=== PATIENT | female | born 1975 | race Caucasian/White ===

== ENCOUNTER 2020-02-04 11:37 | Outpatient (CLI) | payer BC, SELFPAY ==
[2020-02-04 13:45] LABS: LDL Cholesterol Direct 200 mg/dL
[2020-02-04 13:57] LABS: Anion Gap 7 mmol/L (8-16); Blood Urea Nitrogen 9 mg/dL (7-17); Calcium 9.1 mg/dL (8.4-10.2); Carbon Dioxide 29 mmol/L (22-30); Chloride 103 mmol/L (98-107); Cholesterol 275 mg/dL (0-200); Estimated Glomerular Filt Rate > 60; Glucose 131 mg/dL (65-105); HDL Direct 29 mg/dL; Potassium 3.9 mmol/L (3.4-5.0); Sodium 139 mmol/L (137-145); Triglycerides 305 mg/dL (<150)
[2020-02-04 14:08] LABS: Vitamin D 25 Hydroxy 23.7 ng/mL
== END 2020-02-04 11:38 | disposition home or self-care (01) ==
PROVIDERS: PCP Internal Medicine; Visit Provider Internal Medicine
DX: E78.5 Hyperlipidemia, unspecified (principal); E55.9 Vitamin D deficiency, unspecified; E03.9 Hypothyroidism, unspecified; I10 Essential (primary) hypertension
CPT/HCPCS: 36415; 80048; 80061; 82306; 84443

== ENCOUNTER 2020-02-06 16:45 | Outpatient (CLI) | payer BC, SELFPAY | END 2020-02-06 16:46 | disposition home or self-care (01) | LOC: ANHLAB 16:47 | PROVIDERS: PCP Internal Medicine; Visit Provider Internal Medicine | DX: R73.9 Hyperglycemia, unspecified (principal) | CPT/HCPCS: 36415; 83036 ==

== ENCOUNTER 2020-04-20 14:14 | Outpatient (CLI) | payer BC, SELFPAY ==
--- NOTE | 2020-04-21 13:38 | WPDPFTINT ---
PFT Interpretation This is a pulmonary function test with pre and post-bronchodilator spirometry, plethysmography and diffusing capacity. The test was performed and results interpreted in accordance with the 2019 and 2005 ATS/ERS Task Force guidelines respectively using the Zia/María reference equations. Findings: Spirometry: The contour of the inspiratory and expiratory flow tracing are normal. The pre-bronchodilator FVC is 2.84 L, 81% predicted. The pre bronchodilator FEV1 is 2.38 L, 89% predicted. The FEV1: FVC ratio was 84%. The post bronchodilator FVC is 2.93 L, representing a 3% increase. The post bronchodilator FEV1 is 2.52 L, representing a 6% increase. Plethysmography: The total lung capacity is 4.32 L, 83% predicted. The functional residual capacity is 2.09 L, 84% predicted. The residual volume is 1.19 L, 66% predicted. Diffusing capacity: The absolute diffusing capacity is 15.0, 58% predicted. The diffusing capacity corrected for alveolar volume is 3.95, 95% predicted. Impression: The spirometry is normal without evidence of an obstructive abnormality. There is no significant improvement after inhaling a single dose of albuterol. There is an isolated decreased in residual volume. This is an abnormal but nonspecific lung volume lung volume pattern. The absolute diffusing capacity is moderately decreased but normalized when corrected for lung volume. There are no prior studies for comparison
== END 2020-04-20 14:15 | disposition home or self-care (01) ==
LOC: ANHPFT 14:15
PROVIDERS: PCP Internal Medicine; Visit Provider Internal Medicine
DX: R06.02 Shortness of breath (principal); Z72.0 Tobacco use
CPT/HCPCS: 94060; 94726; 94729

== ENCOUNTER 2020-08-03 10:57 | Outpatient (CLI) | payer OTHER, SELFPAY ==
[2020-08-03 11:29] LABS: Alanine Aminotransferase 23 U/L (4-35); Albumin Level 4.2 g/dL (3.5-5.1); Alkaline Phosphatase 76 U/L (38-126); Anion Gap 3 mmol/L (8-16); Aspartate Amino Transferase 30 U/L (14-36); Bilirubin,Total 0.4 mg/dL (0.2-1.3); Blood Urea Nitrogen 9 mg/dL (7-17); Calcium 9.2 mg/dL (8.4-10.2); Carbon Dioxide 32 mmol/L (22-30); Chloride 103 mmol/L (98-107); Cholesterol 268 mg/dL (0-200); Estimated Glomerular Filt Rate 59; Glucose 124 mg/dL (65-105); HDL Direct 35 mg/dL; Potassium 3.5 mmol/L (3.4-5.0); Sodium 138 mmol/L (137-145); Triglycerides 194 mg/dL (<150)
[2020-08-03 11:37] LABS: Hemoglobin A1C 5.8 % (<5.7)
[2020-08-03 11:40] LABS: LDL Cholesterol Direct 191 mg/dL
[2020-08-03 12:05] LABS: Vitamin D 25 Hydroxy 41.7 ng/mL
== END 2020-08-03 10:58 | disposition home or self-care (01) ==
PROVIDERS: PCP Internal Medicine; Visit Provider Internal Medicine
DX: R73.03 Prediabetes (principal); E55.9 Vitamin D deficiency, unspecified; I10 Essential (primary) hypertension; Z79.899 Other long term (current) drug therapy; E03.9 Hypothyroidism, unspecified; E78.5 Hyperlipidemia, unspecified; R41.3 Other amnesia
CPT/HCPCS: 36415; 80053; 80061; 82306; 82607; 83036; 84443

== ENCOUNTER 2020-10-10 14:01 | Outpatient (CLI) | payer BC, SELFPAY | END 2020-10-10 14:02 | disposition home or self-care (01) | PROVIDERS: PCP Internal Medicine; Visit Provider Internal Medicine | DX: R41.3 Other amnesia (principal) | CPT/HCPCS: 36415; 82607 ==

== ENCOUNTER → 2021-01-01 04:11 | Outpatient (CLI) | payer BC, SELFPAY ==
[2021-01-01 18:18] LABS: SARS-CoV-2 RNA PCR Negative
== END ==
PROVIDERS: PCP Internal Medicine; Visit Provider Internal Medicine
DX: R68.89 Other general symptoms and signs (principal); Z20.822 Contact with and (suspected) exposure to COVID-19
CPT/HCPCS: C9803; U0003; U0005

== ENCOUNTER 2021-01-22 09:19 | Outpatient (CLI) | payer BC, SELFPAY ==
--- NOTE | 2021-01-22 09:37 | EST_ITS ---
Patient Info Name: Christina Simmons Age: 45 years : 1975 Gender: Female Ht: 65 in Wt: 206 lbs BSA: 2.11 m2 HR: 70 bpm BP: 147 / 84 mmHg Heart Rhythm: Sinus Rhythm Exam Date: 01/22/2021 9:49 AM Exam Location: [facility] Stress Patient Status: Outpatient Admit Date: 01/22/2021 Staff Ordering Physician: Mala Slater Attending Provider: Mala Slater Exercise Technologist: Genia Crabtree CT Exercise Physician: Aakash Fry DO Exam Type: CA stress test treadmill Study Info Indications R07.9 - Chest pain, unspecified An exercise stress test was performed. Summary 1. 1. Negative Rangel exercise stress test for ischemic ST changes by ECG criteria. 2. 2. Reduced functional capacity, achieving 6 METs of workload. 3. 3. Baseline hypertension with hypertensive response to exercise. 4. 4. Appropriate HR response to exercise. 5. 5. Appropriate HR recovery at 1 minute post exercise. 6. 6. No imaging with stress testing. 7. 7. Patient informed of the above results. Protocol: Rangel Stress ECG Details Stage: REST Duration (min): 1 min : 35 sec Speed (mph): 0.0 Grade (%): 0 HR (bpm): 68 SBP (mmHg): 147 DBP (mmHg): 84 METS: --- Stage: REST Duration (min): 6 min : 12 sec Speed (mph): 0.0 Grade (%): 0 HR (bpm): 81 SBP (mmHg): 147 DBP (mmHg): 84 METS: --- Stage: STAGE 1 Duration (min): 1 min : 0 sec Speed (mph): 1.7 Grade (%): 10 HR (bpm): 105 SBP (mmHg): 147 DBP (mmHg): 84 METS: --- Stage: STAGE 1 Duration (min): 2 min : 0 sec Speed (mph): 1.7 Grade (%): 10 HR (bpm): 127 SBP (mmHg): 147 DBP (mmHg): 84 METS: --- Stage: STAGE 1 Duration (min): 3 min : 0 sec Speed (mph): 1.7 Grade (%): 10 HR (bpm): 139 SBP (mmHg): 189 DBP (mmHg): 82 METS: --- Stage: STAGE 2 Duration (min): 1 min : 0 sec Speed (mph): 2.5 Grade (%): 12 HR (bpm): 155 SBP (mmHg): 189 DBP (mmHg): 82 METS: --- Stage: STAGE 2 Duration (min): 1 min : 0 sec Speed (mph): 2.5 Grade (%): 12 HR (bpm): 155 SBP (mmHg): 189 DBP (mmHg): 82 METS: --- Stage: RECOVERY Duration (min): 0 min : 59 sec Speed (mph): 0.0 Grade (%): 0 HR (bpm): 143 SBP (mmHg): 216 DBP (mmHg): 79 METS: --- Stage: RECOVERY Duration (min): 1 min : 59 sec Speed (mph): 0.0 Grade (%): 0 HR (bpm): 115 SBP (mmHg): 216 DBP (mmHg): 79 METS: --- Stage: RECOVERY Duration (min): 2 min : 59 sec Speed (mph): 0.0 Grade (%): 0 HR (bpm): 94 SBP (mmHg): 191 DBP (mmHg): 69 METS: --- Stage: RECOVERY Duration (min): 3 min : 16 sec Speed (mph): 0.0 Grade (%): 0 HR (bpm): 91 SBP (mmHg): 191 DBP (mmHg): 69 METS: --- Rest HR: 81 bpm Peak HR: 157 bpm Rest Sys BP: 147 mmHg Peak Sys BP: 216 mmHg Max Pred HR: 173 bpm % Max Pred HR: 91 % Target HR: 147
== END 2021-01-22 09:20 | disposition home or self-care (01) ==
PROVIDERS: PCP Internal Medicine; Visit Provider Nurse Practitioner
DX: R07.9 Chest pain, unspecified (principal)
CPT/HCPCS: 93017

== ENCOUNTER 2021-02-01 03:09 | Day surgery (SDC) | payer BC, SELFPAY ==
[2021-01-10 13:03] VITALS: BMI 34.1
[2021-02-01 13:24] VITALS: BP 127/83; PULSE 77; RESP 16; TEMP 35.6; O2SAT 99; BMI 34.7
--- NOTE | 2021-02-01 13:41 | WPDANESEPPF ---
Anes - Initial Pre Proc Eval Procedure: Operation Date: 02/01/21 14:00 Proposed Procedures p Esophagogastroduodenoscopy - Bijan Martínez MD Date/Time: 02/01/21 13:41 Surgeon: Bijan Martínez MD Pre Op Diagnosis: GERD Patient Data Age: 45 Gender: F Height: 1.65 m Weight: 94.5 kg Last Vital Signs Temp 96.0 F L 02/01/21 13:24 Pulse 77 02/01/21 13:24 Resp 16 02/01/21 13:24 BP 127/83 02/01/21 13:24 Pulse Ox 99 02/01/21 13:24 Allergies Allergy/AdvReac Type Severity Reaction Status Date / Time No Known Allergies Allergy Verified 02/01/21 13:24 Home Medications Medication Instructions Recorded Confirmed Type alprazolam 0.25 mg tablet 0.25 mg PO TID PRN 03/09/19 02/01/21 History cholecalciferol (vitamin D3) 50 50 mcg PO DAILY #30 cap 03/13/20 02/01/21 Rx mcg (2,000 unit) capsule famotidine 40 mg tablet See Rx Instructions .ROUTE 06/28/20 02/01/21 Rx .COMPLEX #90 tablet atorvastatin 20 mg tablet 20 mg PO .every other day #45 08/07/20 02/01/21 Rx tablet folic acid 1 mg tablet 1 mg PO DAILY #30 tablet 10/05/20 02/01/21 Rx lamotrigine 150 mg tablet 150 mg PO DAILY 10/18/20 02/01/21 History levothyroxine 88 mcg tablet 88 mcg PO DAILY #90 tablet 10/19/20 02/01/21 Rx ezetimibe 10 mg tablet See Rx Instructions .ROUTE 10/22/20 02/01/21 Rx .COMPLEX #90 tablet lisinopril 10 1 tablet PO DAILY #90 tablet 11/27/20 02/01/21 Rx mg-hydrochlorothiazide 12.5 mg tablet omeprazole 40 mg capsule,delayed 40 mg PO BID #90 cap 01/03/21 02/01/21 Rx release prochlorperazine maleate 10 mg 10 mg PO Q8H PRN #30 tablet 01/04/21 02/01/21 Rx tablet citalopram 20 mg tablet 20 mg PO DAILY 01/16/21 02/01/21 History melatonin 10 mg capsule 10 mg PO QHS 01/16/21 02/01/21 History cetirizine 10 mg PO DAILY 02/01/21 02/01/21 History Patient hx anesthesia problems: none Family hx anesthesia problems: none Results Review: All pre-operative results and documents have been reviewed as part of the pre-operative evaluation. [facility] [place] Family History Family History Father Hypertension Grandparent Family history of malignant neoplasm Mother Family history of diabetes mellitus in first degree relative Social History Social History Smoking packs per day: 1 Smoking cigarettes per day: 20.0 Years smoked: 30 Smoking pack-years: 30.00 Smoking status: Former smoker Tobacco type: cigarettes Second hand tobacco smoke exposure: Yes Smoking end date: 08/20/20 Alcohol intake: never Alcohol use details: 2 per month Substance use: never Substance use type: marijuana Other substance usage details: medical marijuana Living arrangements: with family Spiritual care concerns: No Anes - Eval Final PreProcedure Day of Procedure 02/01/21 13:41 Patient weight: obese Heart: regular rate and rhythm Lungs: clear to auscultation Airway: Mallampati scale class II Neurological: alert and oriented Last oral intake: >/= 8 hours ASA classification: III Emergent: no Anesthetic plan: proceed Anesthesia type and monitoring: general GIVS and standard monitoring Results Review: All pre-operative results and documents have been reviewed as part of the pre-operative evaluation. Informed Consent: The patient's anesthetic plan and its attendant risks and benefits were discussed with the patient/family/POA. Questions were solicited and answers provided to the satisfaction of the patient/family/POA.
[2021-02-01] MEDS: LACTATED RINGERS 1,000 ML 150 ML IV CONT (13:42)
--- NOTE | 2021-02-01 14:01 | PM.HPGS ---
History of Present Illness History of Present Illness Consent: Risks, benefits, and alternatives have been discussed and questions answered. Patient agrees to proceed with procedure. Chief complaint: GERD Narrative: Christina Simmons is a 45 year old female with nausea, vomiting and belching for 2 months but better after omeprazole was increased. Review of Systems Constitutional: Constitutional: Denies headache(s) and Denies weakness Eyes: Eyes: Denies blurry vision ENT: Reports Normal hearing present, Denies headache(s) and Denies neck pain Cardiovascular: Cardiovascular: Denies chest pain and Denies dyspnea Respiratory: Respiratory: Denies dyspnea Gastrointestinal: Gastrointestinal: Reports no additional gastrointestinal complaints Genitourinary: Genitourinary: Denies dysuria Musculoskeletal: Musculoskeletal: Denies neck pain Integumentary/Breasts: Skin/Breast: Denies dry skin Neurologic: Reports Normal hearing present, Denies headache(s) and Denies weakness Psychiatric: Psychiatric: Denies anxiety Endocrine: Endocrine: Denies change in body appearance Hematologic/Lymphatic: Hematologic/Lymphatic: Denies easy bleeding Allergic/Immunologic: Allergic/Immunologic: Denies urticaria PMFSH Past Medical History Medical History (Updated 02/01/21 @ 14:02 by Bijan Martínez MD) Nausea & vomiting Family History Family History Father Hypertension Grandparent Family history of malignant neoplasm Mother Family history of diabetes mellitus in first degree relative Social History Social History Smoking packs per day: 1 Smoking cigarettes per day: 20.0 Years smoked: 30 Smoking pack-years: 30.00 Smoking status: Former smoker Tobacco type: cigarettes Second hand tobacco smoke exposure: Yes Smoking end date: 08/20/20 Alcohol intake: never Alcohol use details: 2 per month Substance use: never Substance use type: marijuana Other substance usage details: medical marijuana Living arrangements: with family Spiritual care concerns: No Meds Home Medications and Allergies Home Medications Medication Instructions Recorded Confirmed Type alprazolam 0.25 mg tablet 0.25 mg PO TID PRN 03/09/19 02/01/21 History cholecalciferol (vitamin D3) 50 50 mcg PO DAILY #30 cap 03/13/20 02/01/21 Rx mcg (2,000 unit) capsule famotidine 40 mg tablet See Rx Instructions .ROUTE 06/28/20 02/01/21 Rx .COMPLEX #90 tablet atorvastatin 20 mg tablet 20 mg PO .every other day #45 08/07/20 02/01/21 Rx tablet folic acid 1 mg tablet 1 mg PO DAILY #30 tablet 10/05/20 02/01/21 Rx lamotrigine 150 mg tablet 150 mg PO DAILY 10/18/20 02/01/21 History levothyroxine 88 mcg tablet 88 mcg PO DAILY #90 tablet 10/19/20 02/01/21 Rx ezetimibe 10 mg tablet See Rx Instructions .ROUTE 10/22/20 02/01/21 Rx .COMPLEX #90 tablet lisinopril 10 1 tablet PO DAILY #90 tablet 11/27/20 02/01/21 Rx mg-hydrochlorothiazide 12.5 mg tablet omeprazole 40 mg capsule,delayed 40 mg PO BID #90 cap 01/03/21 02/01/21 Rx release prochlorperazine maleate 10 mg 10 mg PO Q8H PRN #30 tablet 01/04/21 02/01/21 Rx tablet citalopram 20 mg tablet 20 mg PO DAILY 01/16/21 02/01/21 History melatonin 10 mg capsule 10 mg PO QHS 01/16/21 02/01/21 History cetirizine 10 mg PO DAILY 02/01/21 02/01/21 History Allergies Allergy/AdvReac Type Severity Reaction Status Date / Time No Known Allergies Allergy Verified 02/01/21 13:24 Vital Signs Vital Signs - 24 hr 02/01/21 13:24 Temperature 96.0 F L Pulse Rate 77 Respiratory Rate 16 Blood Pressure 127/83 Pulse Oximetry 99 Exam Const: General: comfortable and no acute distress HENMT: General nose exam: Normal nares present Eyes: General: appearance normal, both eyes and all related structures Neck: Neck: no JVD Resp: Auscultation: clear to
[2021-02-01] MEDS: BENZOCAINE (*SP) 60 ML SPRAY CAN (HURRICAINE) 1 SPRAY MUCOUS MEM (14:12)
[2021-02-01 14:28] VITALS: BP 104/69; PULSE 92; RESP 16; O2SAT 98
[2021-02-01 14:38] VITALS: BP 95/56; PULSE 88; RESP 16; O2SAT 98
[2021-02-01 14:46] VITALS: BP 112/66; PULSE 79; RESP 16; O2SAT 100
== END 2021-02-01 14:55 | disposition home or self-care (01) ==
PROVIDERS: PCP Internal Medicine; Visit Provider Internal Medicine Gastroenterology
PROC: 0DJ08ZZ Inspection of Upper Intestinal Tract, Via Natural or Artificial Opening Endoscopic (ICD-10-PCS; CPT 43235; principal; 2021-02-01 14:00)
DX: R11.2 Nausea with vomiting, unspecified (principal); K21.00 Gastro-esophageal reflux disease with esophagitis, without bleeding; R14.2 Eructation; Z87.891 Personal history of nicotine dependence; F12.90 Cannabis use, unspecified, uncomplicated; E03.9 Hypothyroidism, unspecified; E66.9 Obesity, unspecified; Z68.34 Body mass index [BMI] 34.0-34.9, adult; K29.50 Unspecified chronic gastritis without bleeding
CPT/HCPCS: 43239; 88305; 88313; J2704; J7120

== ENCOUNTER 2021-02-19 12:32 | Outpatient (CLI) | payer BC, SELFPAY | END 2021-02-19 12:33 | disposition home or self-care (01) | LOC: ANHLAB 12:33 | PROVIDERS: PCP Internal Medicine; Visit Provider Internal Medicine | DX: E03.9 Hypothyroidism, unspecified (principal) | CPT/HCPCS: 36415; 84439; 84443 ==

== ENCOUNTER 2021-07-15 07:30 | Outpatient (CLI) | payer BC, SELFPAY ==
--- NOTE | 2021-07-16 16:32 | WPDHOMESLEEP ---
Sleep Study - Home Unattended Date of Study: 07/15/21 Ordering Provider: Jorge L Kaminski DO Interpreting Provider: Shannon Jones DO Home Sleep Study Type: Apnea Link Air Height: 1.65 m Weight: 104.326 kg Body Mass Index: 38.2 Neck Circumference (inches): 16 [place]: 16 Reason for Sleep Study Loud snoring, unrefreshing sleep, multiple nighttime awawkenings Sleep History The patient is a 46-year-old female with hypertension, depression, hypothyroidism and GERD that had a home sleep test ordered by her primary care physician for evaluation of sleep apnea. The patient occasionally awakens from sleep short of breath. She rarely awakens at night with heartburn, belching or cough. She constantly snores loud enough that others complain. She frequently has trouble sleeping when she has a cold. She rarely wakes up gasping for air throughout the night. She occasionally has breathing problems at night observed by herself or others. She frequently sweats excessively at night. She denies heart palpitations or irregular heartbeats during the night. He occasionally falls asleep during the day but never while driving. She denies sleep paralysis, cataplexy and hypnagogic / hypnopompic hallucinations. She frequently has trouble at work due to sleepiness. She denies feeling afraid of asleep. She rarely has nightmares. She rarely remembers her dreams. She denies having thoughts racing through her mind. He constantly feels sad or depressed. She constantly has anxiety. She frequently has muscular tension she occasionally notices parts of her body jerk she frequently kicks during the night. She occasionally has crawling and aching feelings in her legs but denies leg pain during the night. She denies grinding her teeth during sleep awakening with morning jaw pain. She is occasionally bothered by pain during the day but never awakened by pain during night. She frequently wakes up feeling stiff in the morning with sore achy muscles. She frequently wakes up with pain in the neck, spine or other joints. The patient did not list her bedtime on weekdays and weekends. She states it does not take her want to fall asleep. She will wake up 10 times throughout the night. When she awakens, she will use the restroom and get a drink. It takes her 10-15 minutes to fall back asleep. She wakes up between noon and 2:00 p.m. on both weekdays and weekends. She will stay in bed for 15-30 minutes after waking up in the morning. She currently lives her . She does not consume any caffeinated beverages within 2 hours of bedtime. She does not engage in physical exercise before bedtime. She denies reading and watching television before falling asleep. She will take naps in the afternoon or the evening but they are refreshing. She drinks 5-6 caffeinated beverages per day. She denies current alcohol use. She quit smoking cigarettes 1 year ago. She does currently use medicinal cannabis. [facility] Past Medical History Medical History Benign essential hypertension Depression Gastroesophageal reflux disease Hypothyroidism Nausea & vomiting Prediabetes Family History Family History Father Hypertension Grandparent Family history of malignant neoplasm Mother Family history of diabetes mellitus in first degree relative Social History Social History Smoking packs per day: 1 Smoking cigarettes per day: 20.0 Years smoked: 30 Smoking pack-years: 30.00 Smoking status: Former smoker Tobacco type: cigarettes Second hand tobacco smoke exposure: Yes Smoking end date: 08/20/20 Alcohol intake: never Alcohol use details: 2 per month Substance use: never Substance use type: marijuana Other substance usage details: medical marijuana Spiritual care concerns: No Me
[2021-07-16 16:55] VITALS: BMI 38.2
== END 2021-07-16 10:35 | disposition home or self-care (01) ==
LOC: ANHCSM 07:32
PROVIDERS: PCP Internal Medicine; Visit Provider Internal Medicine
DX: G47.33 Obstructive sleep apnea (adult) (pediatric) (principal)
CPT/HCPCS: 95806

== ENCOUNTER 2021-08-06 14:19 | Outpatient (CLI) | payer BC, SELFPAY ==
--- NOTE | 2021-08-18 20:42 | WPDSLEEPSTUD ---
Sleep Study Date of Study: 08/06/21 Ordering Provider: Jorge L Kaminski DO Interpreting Physician: Maritza Denis MD Sleep Study Type: CPAP Titration Height: 1.65 m Weight: 99.79 kg Body Mass Index: 36.6 Neck Circumference (inches): 14 [place]: 10 Reason for Sleep Study * 07/15/2021 Home Sleep Apnea Test with an apnea hypopnea index of 27.8 which is consistent with moderate sleep apnea. The patient had an elevated central apnea index of 7.2 (normal< 5). She presents now for a CPAP titration. * 08/13/2021 echo - EF 60-65%. Sleep History Christina Simmons is a 46-year-old female with hypertension, depression, hypothyroidism and GERD. On July 15, 2021 her home sleep test showed moderate obstructive sleep apnea with an elevated central apnea index. She occasionally awakens from sleep short of breath. She rarely awakens at night with heartburn, belching or cough. She constantly snores loudly enough that others complain. She frequently has trouble sleeping when she has a cold. She rarely wakes up gasping for air throughout the night. She occasionally has breathing problems at night observed by herself or others. She frequently sweats excessively at night. She denies heart palpitations or irregular heartbeats during the night. She occasionally falls asleep during the day but never while driving. She denies sleep paralysis, cataplexy and hypnagogic / hypnopompic hallucinations. She frequently has trouble at work due to sleepiness. She denies feeling afraid of going to sleep. She rarely has nightmares. She rarely remembers her dreams. She denies having thoughts racing through her mind. He constantly feels sad or depressed. She constantly has anxiety. She frequently has muscular tension she occasionally notices parts of her body jerk she frequently kicks during the night. She occasionally has crawling and aching feelings in her legs but denies leg pain during the night. She denies grinding her teeth during sleep or waking with morning jaw pain. She is occasionally bothered by pain during the day but never awakened by pain during night. She frequently wakes up feeling stiff in the morning with sore achy muscles. She frequently wakes up with pain in the neck, spine or other joints. The patient did not list her bedtime on weekdays and weekends. She states it does not take her long to fall asleep. She will wake up 10 times throughout the night. When she awakens, she will use the bathroom and get a drink. It takes her 10-15 minutes to fall back asleep. She wakes up between noon and 2:00 p.m. on both weekdays and weekends. She will stay in bed for 15-30 minutes after waking up in the morning. She currently lives her . She does not consume any caffeinated beverages within 2 hours of bedtime. She takes naps in the afternoon or the evening. A short nap may be refreshing. Habits: Former tobacco smoker, quit a year ago. Caffeine: 5-6 caffeinated beverages per day. No current alcohol use. She does currently use medicinal cannabis. [facility] Past Medical History Medical History (Updated 08/18/21 @ 21:11 by Maritza Denis MD) Benign essential hypertension Depression Gastroesophageal reflux disease Hypothyroidism Mixed hyperlipidemia Nausea & vomiting SHANE (obstructive sleep apnea) Prediabetes Family History Family History Father Hypertension Grandparent Family history of malignant neoplasm Mother Family history of diabetes mellitus in first degree relative Social History Social History Smoking packs per day: 1 Smoking cigarettes per day: 20.0 Years smoked: 30 Smoking pack-years: 30.00 Smoking status: Former smoker Tobacco type: cigarettes Second hand tobacco smoke exposure: Yes Smoking end date: 08/20/20 Alcohol intake: never Alcohol use details: 2 per month Substance use: never Substance use typ
[2021-08-18 21:28] VITALS: BMI 36.6
== END 2021-08-07 06:32 | disposition home or self-care (01) ==
LOC: ANHCSM 14:19
PROVIDERS: PCP Internal Medicine; Visit Provider Internal Medicine
DX: G47.33 Obstructive sleep apnea (adult) (pediatric) (principal); G47.31 Primary central sleep apnea
CPT/HCPCS: 95810; 95811

== ENCOUNTER 2021-08-13 08:27 | Outpatient (CLI) | payer BC, SELFPAY ==
--- NOTE | 2021-08-13 08:39 | ECHO_ITS ---
Patient Info Name: Christina Simmons Age: 46 years : 1975 Gender: Female Ht: 65 in Wt: 230 lbs BSA: 2.24 m2 HR: 69 bpm BP: 120 / 87 mmHg Technical Quality: Fair Exam Date: 08/13/2021 9:08 AM Exam Location: [facility] Pulmonary Patient Status: Outpatient Admit Date: 08/13/2021 Staff Ordering Physician: Jorge L Kaminski DO Agricultural Extension Educator: Elida Nelson RDCS Attending Provider: Jorge L Kaminski DO Referring Physician: Gordy MUIR; Exam Type: CA echo doppler color flow Study Info Indications G47.31 - PRIMARY CENTRAL SLEEP APNEA Complete two-dimensional, color flow and Doppler transthoracic echocardiogram is performed. Summary 1. Complete two-dimensional, color flow and Doppler transthoracic echocardiogram is performed. 2. Left ventricular chamber dimension is normal. 3. Left ventricular systolic function is normal, estimated at 60-65%. 4. There is mildly increased left ventricular wall thickness. 5. The left ventricular diastolic function is grade II diastolic dysfunction. 6. E/e' 9 is minimally elevated. 7. Global longitudinal strain is normal at -19.7%. 8. No pulmonary hypertension, estimated pulmonary arterial systolic pressure is 21 mmHg. Left Ventricle E/e' 9 is minimally elevated. Global longitudinal strain is normal at -19.7%. Left ventricular chamber dimension is normal. Left ventricular systolic function is normal, estimated at 60-65%. There is mildly increased left ventricular wall thickness. The left ventricular diastolic function is grade II diastolic dysfunction. Right Ventricle Right ventricular systolic function is normal and with normal TAPSE 2.3 cm. Right ventricular chamber dimension is normal. Left Atria Left atrial chamber dimension is normal. Right Atria Right atrial chamber dimension is normal. Aortic Valve The aortic valve is trileaflet. There is no aortic valve stenosis. There is no aortic valve regurgitation. Pulmonic Valve There is no pulmonic regurgitation. Mitral Valve There is no mitral valve stenosis. There is no mitral valve regurgitation. Tricuspid Valve There is no tricuspid valve regurgitation. No pulmonary hypertension, estimated pulmonary arterial systolic pressure is 21 mmHg. Pericardium/Pleural There is no pericardial effusion. Inferior Vena Cava Normal inferior vena cava with >50% collapse upon inspiration consistent with normal right atrial pressure, 5 mmHg. Aorta The aortic root size at the sinus of Valsalva is normal. Left Ventricular Outflow Tract Name Value Normal LVOT 2D LVOT Diameter 2.0 cm LVOT Doppler LVOT Peak Gradient 4 mmHg LVOT Mean Gradient 2 mmHg LVOT VTI 20 cm LVOT VTI/AV VTI Ratio 0.9 LVOT Stroke Volume 61 ml LVOT CO 4.5 l/min LVOT CI 2.0 l/min/m2 Pulmonic Valve Name Value Normal ----
[2021-08-13 09:26] LABS: Alanine Aminotransferase 23 U/L (4-35); Albumin Level 4.1 g/dL (3.5-5.1); Alkaline Phosphatase 84 U/L (38-126); Anion Gap 8 mmol/L (8-16); Aspartate Amino Transferase 33 U/L (14-36); Bilirubin,Total 0.2 mg/dL (0.2-1.3); Blood Urea Nitrogen 9 mg/dL (7-17); Calcium 8.7 mg/dL (8.4-10.2); Carbon Dioxide 25 mmol/L (22-30); Chloride 104 mmol/L (98-107); Cholesterol 216 mg/dL (0-200); Estimated Glomerular Filt Rate > 60; Glucose 155 mg/dL (65-110); HDL Direct 41 mg/dL; Potassium 3.8 mmol/L (3.4-5.0); Sodium 137 mmol/L (137-145); Triglycerides 333 mg/dL (<150)
[2021-08-13 09:36] LABS: LDL Cholesterol Direct 117 mg/dL
[2021-08-13 10:08] LABS: Vitamin D 25 Hydroxy 41.9 ng/mL
== END 2021-08-13 08:28 | disposition home or self-care (01) ==
LOC: ANHCARD 08:29
PROVIDERS: PCP Internal Medicine; Visit Provider Internal Medicine
DX: E78.5 Hyperlipidemia, unspecified (principal); G47.31 Primary central sleep apnea; E03.9 Hypothyroidism, unspecified; E55.9 Vitamin D deficiency, unspecified; I10 Essential (primary) hypertension; R73.03 Prediabetes
CPT/HCPCS: 36415; 80053; 80061; 82306; 83036; 84443; 93306

== ENCOUNTER 2022-01-28 14:05 | Outpatient (CLI) | payer BC, SELFPAY ==
[2022-01-28 14:22] LABS: Basophils Absolute Auto 0.1 K/mm3 (0.0-0.1); Basophils Percent Auto 0.7 % (0.2-1.2); Eosinophils Absolute Auto 0.3 K/mm3 (0-0.3); Eosinophils Percent Auto 3.1 % (0-4.4); Hematocrit 40.5 % (37.0-47.0); Hemoglobin 13.7 g/dL (12.0-15.0); Immature Granulocyte Absolute 0.04 K/mm3 (0.00-0.031); Immature Granulocyte Percent A 0.4 % (0-0.5); Lymphocytes Absolute Auto 2.87 K/mm3 (0.9-3.2); Lymphocytes Percent Auto 29.3 % (18.3-44.2); Mean Corpuscular HGB Conc 33.8 g/dl (32-36); Mean Corpuscular Hemoglobin 29.4 pg (26-34); Mean Corpuscular Volume 86.9 fl (80-100); Mean Platelet Volume 10.7 fl (7.4-10.4); Monocytes Absolute Auto 0.5 K/mm3 (0.1-0.6); Monocytes Percent Auto 5.4 % (2.6-8.5); Neutrophils Percent Auto 61.1 % (45.5-73.1); Platelet Count Result 273 k/mm3 (150-375); Red Blood Count 4.66 M/mm3 (4.2-5.4); Red Cell Distribution Width 13.2 % (11.5-14.5); White Blood Count 9.8 K/mm3 (4.5-10.0)
[2022-01-28 14:48] LABS: Alanine Aminotransferase 25 U/L (6-35); Albumin Level 4.4 g/dL (3.5-5.1); Alkaline Phosphatase 92 U/L (38-126); Anion Gap 9 mmol/L (8-16); Aspartate Amino Transferase 27 U/L (14-36); Bilirubin,Total 0.3 mg/dL (0.2-1.3); Blood Urea Nitrogen 9 mg/dL (7-17); Calcium 9.2 mg/dL (8.4-10.2); Carbon Dioxide 29 mmol/L (22-30); Chloride 100 mmol/L (98-107); Cholesterol 200 mg/dL (0-200); Estimated Glomerular Filt Rate > 60; Glucose 149 mg/dL (65-110); HDL Direct 46 mg/dL; Potassium 3.9 mmol/L (3.4-5.0); Sodium 138 mmol/L (137-145); Triglycerides 214 mg/dL (<150)
[2022-01-28 14:59] LABS: LDL Cholesterol Direct 114 mg/dL
[2022-01-28 16:27] LABS: Hemoglobin A1C 6.3 % (<5.7)
== END 2022-01-28 14:06 | disposition home or self-care (01) ==
LOC: ANHLAB 14:08
PROVIDERS: PCP Internal Medicine; Visit Provider Internal Medicine
DX: R06.00 Dyspnea, unspecified (principal); E03.9 Hypothyroidism, unspecified; E78.5 Hyperlipidemia, unspecified; R73.03 Prediabetes; Z79.899 Other long term (current) drug therapy
CPT/HCPCS: 36415; 80053; 80061; 83036; 84443; 85025

== ENCOUNTER 2022-02-11 14:21 | Outpatient (CLI) | payer BC, SELFPAY ==
--- NOTE | ~2022-02-11 | XR_ITS ---
XR chest 2V DATE: 02/11/2022 14:41 INDICATION: Increasing chest pain over the past year TECHNIQUE: PA and lateral views COMPARISON: 08/23/2015 PA and lateral chest FINDINGS: Heart size is within normal range. No pulmonary infiltrate or consolidation, pleural effusi on or pulmonary vascular congestion or pneumothorax. Included skeletal structures are unremarkable. Status post cholecystectomy. IMPRESSION: No active cardiopulmonary disease Reviewed, dictated and finalized at location A.
== END 2022-02-11 14:22 | disposition home or self-care (01) ==
PROVIDERS: PCP Internal Medicine; Visit Provider Internal Medicine
DX: R07.9 Chest pain, unspecified (principal)
CPT/HCPCS: 71046

== ENCOUNTER 2022-02-26 11:18 | Outpatient (CLI) | payer BC, SELFPAY ==
--- NOTE | ~2022-02-26 | MM_ITS ---
EXAMINATION: MM screening dany BI w jasmyn HISTORY: Screening TECHNIQUE: Craniocaudal and mediolateral oblique 3-D tomosynthesis images were obtained and synthetic 2-D images were generated. CAD analysis was submitted and interpreted. COMPARISON: 05/07/2015 BREAST PARENCHYMAL COMPOSITION: There are scattered areas of fibroglandular density. FINDINGS: There is no evidence of suspicious mass, calcification, or architectural distortion to sugg est malignancy in either breast. There has been no suspicious interval change. IMPRESSION: 1. No mammographic evidence of malignancy. 2. Recommend routine screening mammography in one year. BI-RADS Category 1: Negative Reviewed, dictated and finalized at location A. [employer]
== END 2022-02-26 11:19 | disposition home or self-care (01) ==
PROVIDERS: PCP Internal Medicine; Visit Provider Internal Medicine
DX: Z12.31 Encounter for screening mammogram for malignant neoplasm of breast (principal)
CPT/HCPCS: 77063; 77067

== ENCOUNTER 2022-08-18 08:15 | Outpatient (CLI) | payer BC, SELFPAY ==
--- NOTE | 2022-09-09 10:01 | WPDSLEEPSTUD ---
Sleep Study Date of Study: 08/18/22 Ordering Provider: Alfonso Norton, Interpreting Physician: Shannon Jones, DO Sleep Study Type: BiPAP Titration Height: 1.65 m Weight: 93.44 kg Body Mass Index: 34.2 Neck Circumference (inches): 15.5 [place]: 14 Reason for Sleep Study * 07/15/2021 Home Sleep Apnea Test with an apnea hypopnea index of 27.8 which is consistent with moderate sleep apnea. The patient had an elevated central apnea index of 7.2 (normal< 5). She presents now for a CPAP titration. * 08/13/2021 echo - EF 60-65%. The patient quit using her CPAP within 2 months of getting her equipment due to difficulty tolerating pressure and high leak. The patient is edentulous which is contributing to poor mask fit. Sleep History Christina Simmons is a 46-year-old female with hypertension, depression, hypothyroidism and GERD.? On July 15, 2021 her home sleep test showed moderate obstructive sleep apnea with an elevated central apnea index. ? She occasionally awakens from sleep short of breath.? She rarely awakens at night with heartburn, belching or cough.? She constantly snores loudly enough that others complain.? She frequently has trouble sleeping when she has a cold.? She rarely wakes up gasping for air throughout the night.? She occasionally has breathing problems at night observed by herself or others.? She frequently sweats excessively at night.? She denies heart palpitations or irregular heartbeats during the night.? She occasionally falls asleep during the day but never while driving.? She denies sleep paralysis, cataplexy and hypnagogic / hypnopompic hallucinations.? She frequently has trouble at work due to sleepiness.? She denies feeling afraid of? going to sleep.? She rarely has nightmares.? She rarely remembers her dreams.? She denies having thoughts racing through her mind.? He constantly feels sad or depressed.? She constantly has anxiety.? She frequently has muscular tension she occasionally notices parts of her body jerk she frequently kicks during the night.? She occasionally has crawling and aching feelings in her legs but denies leg pain during the night.? She denies grinding her teeth during sleep or waking with morning jaw pain.? She is occasionally bothered by pain during the day but never awakened by pain during night.? She frequently wakes up feeling stiff in the morning with sore achy muscles.? She frequently wakes up with pain in the neck, spine or other joints. The patient did not list her bedtime on weekdays and weekends.? She states it does not take her long to fall asleep.? She will wake up 10 times throughout the night.? When she awakens, she will use the bathroom and get a drink.? It takes her 10-15 minutes to fall back asleep.? She wakes up between noon and 2:00 p.m. on both weekdays and weekends.? She will stay in bed for 15-30 minutes after waking up in the morning.? She currently lives her .? She does not consume any caffeinated beverages within 2 hours of bedtime. She takes naps in the afternoon or the evening. A short nap may be refreshing. Habits: Former tobacco smoker, quit a year ago. Caffeine: 5-6 caffeinated beverages per day.? No current alcohol use. She does currently use medicinal cannabis. [facility] Past Medical History Medical History Benign essential hypertension COVID-19 Depression Gastroesophageal reflux disease Hypothyroidism Mixed hyperlipidemia Nausea & vomiting SHANE (obstructive sleep apnea) Prediabetes Family History Family History Father Hypertension Grandparent Family history of malignant neoplasm Mother Family history of diabetes mellitus in first degree relative Social History Social History Smoking packs per day: 1.5 Smoking cigarettes per day: 30.0 Years smoked: 30 Smoking pack-years: 45.00 Smoking status:
[2022-09-09 10:03] VITALS: BMI 34.2
== END 2022-08-19 06:13 | disposition home or self-care (01) ==
LOC: ANHCSM 08:17
PROVIDERS: PCP Internal Medicine; Visit Provider Internal Medicine Pulmonary Disease
DX: G47.33 Obstructive sleep apnea (adult) (pediatric) (principal); G47.31 Primary central sleep apnea
CPT/HCPCS: 95811

== ENCOUNTER 2024-08-12 12:17 | Outpatient (CLI) | payer BC, SELFPAY ==
--- NOTE | 2024-08-12 12:26 | ECG_ITS ---
Test Date: 2024-08-12 12:39:22 Measurements Intervals [place] Rate: 72 P: 20 LA: 146 QRS: 15 QRSD: 87 T: 6 QT: 365 QTc: 401 Interpretive Statements SINUS RHYTHM LOW QRS VOLTAGE IN PRECORDIAL LEADS [QRS DEFLECTION < 1.0 mV IN CHEST LEADS] No previous ECG available for comparison Electronically Signed On 08-12-2024 19:14:28 CDT by Chana Murguia
[2024-08-12 13:15] LABS: Anion Gap 5 mmol/L (4-12); Blood Urea Nitrogen 8 mg/dL (7-17); Calcium 9.4 mg/dL (8.4-10.2); Carbon Dioxide 32 mmol/L (22-30); Chloride 104 mmol/L (98-107); Estimated Glomerular Filt Rate > 60; Glucose 146 mg/dL (65-110); Potassium 3.9 mmol/L (3.4-5.0); Sodium 141 mmol/L (137-145)
--- OUTSIDE RECORDS SUMMARY | 2024-08-13 13:08 | XMS_ITS | Data Portability ---
Author Organization [facility], [place] Address [address] [place] [address] Assessment Encounter Date Assessment Date Assessment LastModified by Organization Details LastModified Time 06/19/2022 06/19/2022 Annual gynecological exam performed. Patient will come back in a year unless there are new symptoms. [email or web address] Not available 06/19/2022 12:11:40 Plan of Treatment Reminders Order Date Submit Date Provider Last Modified By Organization Details Last Modified Time Details Appointments None recorded. Lab None recorded. Referral None recorded. Procedures None recorded. Surgeries None recorded. Imaging None recorded. Medication Orders metronidazo le 0.75 % (37.5 mg/5 gram) vaginal gel [address] [place] [address]/Pharmacy #[id number], [address] [facility], [place], [address], 12:44:56 Patient TargetsNo targets recorded. Patient InstructionsNo instructions recorded. Reason for Referral None Reported. Procedures Surgical History Date Name Laterality Status Provider Name and Address Organization Details Recorded Time Tonsillectomy completed [facility] 06/19/2022 12:12:27 Oophorectomy completed [facility] 06/19/2022 12:12:27 Total Hysterectomy completed [facility] 06/19/2022 12:12:27 [facility] ds [facility] 12:12:[address] [facility] 06/19/2022 12:12:[address] [facility] 06/19/2022 12:12:27 Imaging Results None recorded. Procedure Notes None recorded. Medical Equipment None Reported. Allergies No known drug allergies Medications Name Sig Start Date Stop Date Status Note LastModified by Organization Details LastModified Time atorvastati n 40 mg tablet 1 tablet every day by oral route. active Not Available Not Available No t Available lamotrigine 150 mg tablet TAKE 1 TABLET BY MOUTH EVERYDAY AT BEDTIME active Not Available Not Available No t Available atorvastati n 20 mg tablet Take 1 tablet every day by oral route. active Not Available Not Available No t Available citalopram 40 mg tablet 1 tablet every day by oral route. active Not Available Not Available No t Available lisinopril 20 mg-hydrochl orothiazide 12.5 mg tablet Take 1 tablet every day by oral route. active Not Available Not Available No t Available metronidazo le 0.75 % (37.5 mg/5 gram) vaginal gel INSERT 1 APPLICATO RFUL VAGINALLY EVERY DAY AT BEDTIME X5 DAYS active Not Available Not Available No t Available famotidine 40 mg tablet active Not Available Not Available Not Available Zyrtec 10 mg tablet 1 tablet every day by oral route. active Not Available Not Available No t Available omeprazole 40 mg capsule,del ayed release TAKE 1 CAPSULE ORALLY TWICE A DAY active Not Available Not Available No t Available alprazolam 0.25 mg tablet Take 1 tablet 3 times a day by oral route. active Not Available Not Available No t Available levothyroxi ne 125 mcg tablet TAKE 1 TABLET BY MOUTH EVERY DAY active Not Available Not Available No t Available folic acid 1 mg tablet TAKE 1 TABLET BY MOUTH EVERY DAY active Not Available Not Available No t Available ezetimibe 10 mg tablet active Not Available Not Available Not Available bupropion HCl XL 150 mg 24 hr tablet, extended release 1 tablet every day by oral route. active Not Available Not Available No t Available lisinopril- hydrochloro thiazide 06/19 completed Not Available Not Available Not Available omeprazole 06/19 completed Not Available Not Available Not Available famotidine 06/19 completed Not Available Not Available Not Available Zetia 06/19 completed Not Available Not Available Not Available Vitamin D3 50 mcg (2,000 unit) capsule Take by oral route. active Not Available Not Available No t Available melatonin 10 mg tablet 10 mg every day by oral route. active Not Available Not Available No t Available Vitals Date Recorded Body height Body mass index (BMI) Body weight Systolic blood pressure Diastolic blood pressure Provider Name and Address Organization Details Last Updated DateTime 06/19/2022 165.1 cm 34.2 kg/m2 02594.31 g 116 mm[Hg] 77 mm[Hg] [facility] 12:12:05 Date Recorded Body height Systolic blood pressure Diastolic blood pressure Provider Name and Address Organization Details Last Updated DateTime 07/16/2022 165.1 cm 104 mm[Hg] 73 mm[Hg] [facility] 07/16/2022 16:02:33 Social History Question Answer Notes LastModified by Organizat ion Details LastModified Time Tobacco Smoking Status Former Smoker [facility] 06/19/2022 12:19:54 Do You Have An Advance Directive? No Information not available 06/19/2022 What Is Your Level Of Alcohol Consumption? Occasional Information not available 06/19/2022 How Many Years Have You Consumed Alcohol? 30 Information not available 06/19/2022 Are You Blind Or Do You Have Difficulty Seeing? No Information not available 06/19/2022 What Is Your Level Of Caffeine Consumption? Moderate Information not available 06/19/2022 How Much Tobacco Do You Chew? None Information not available 06/19/2022 In The 14 Days Before Symptom Onset, Have You Had Close Contact With A Laboratory-confir med COVID-19 While That Case Was Ill? No Information not available 06/19/2022 In The 14 Days Before Symptom Onset, Have You Had Close Contact With A Person Who Is Under Investigation For COVID-19 While That Person Was Ill? No Information not available 06/19/2022 Have You Been To An Area Known To Be High Risk For COVID-19? No Information not available 06/19/2022 Are You Deaf Or Do You Have Serious Difficulty Hearing? No Information not available 06/19/2022 What Type Of Diet Are You Following? REGULAR Information not available 06/19/2022 What Is The Highest Grade Or Level Of School You Have Completed Or The Highest Degree You Have Received? [id number] Information not available 06/19/2022 What Is Your Occupation? Unemployed At This Time Information not available 06/19/2022 Are There Any Guns Present In Your Home? No Information not available 06/19/2022 Do You Use Protection During Sex? No Information not available 06/19/2022 Do You Use Your Seat Belt Or Car Seat Routinely? Yes Information not available 06/19/2022 Do You Have Smoke And Carbon Monoxide Detectors In Your Home? Yes Information not available 06/19/2022 How Much Tobacco Do You Smoke? No Information not available 06/19/2022 Do You Use Any Illicit Or Recreational Drugs? Yes Information not available 06/19/2022 Do You Use Sunscreen Routinely? Yes Information not available 06/19/2022 How Many Years Have You Smoked Tobacco? 35 Information not available 06/19/2022 Have You Used IV Drugs? No Information not available 06/19/2022 Sex: Unknown Functional Status Question Answer Note LastModified by Organizat ion Details LastModified Time Do you have difficulty walking or climbing stairs? No Information not available 06/19/2022 Are you able to walk? YESWOREST Information not available 06/19/2022 Are you able to care for yourself? Yes Information not available 06/19/2022 Do you have difficulty dressing or bathing? No Information not available 06/19/2022 What is your exercise level? None Information not available 06/19/2022 Mental Status None recorded. Family History Relationship Description Onset Age of this Age Resolved Age Notes LastModified by Organization Details LastModified Time Maternal Uncle Myocardial infarction [email or web address] Not available 12/2022 12:12:10 Paternal Grandfather Malignant neoplasm of lung vschroedter Not available 12/2022 12:12:10 Paternal Grandfather Heart disease [email or web address] Not available 12/2022 12:12:10 Maternal Grandmother Kidney disease [email or web address] Not available 12/2022 12:12:10 Mother Disorder of lung 82 vschroedter Not available 12/2022 12:12:10 Brother Substance abuse 28 vschroedter Not available 12/2022 12:12:10 Paternal Grandmother Mental disorder vschroedter Not available 12/2022 12:12:10 Maternal Aunt Myocardial infarction vschroedter Not available 12/2022 12:12:10 Father Hypercholest erolemia vschroedter Not available 12/2022 12:12:10 Father Disorder of thyroid gland vschroedter Not available 12/2022 12:12:10 Father Hypertensive disorder vschroedter Not available 12/2022 12:12:10 Father Heart disease vschroedter Not available 12/2022 12:12:10 Father Diabetes mellitus vschroedter Not available 12/2022 12:12:10 Paternal Aunt Malignant tumor of breast vschroedter Not available 12/2022 12:12:10 Medical History Condition Response Allergies (Food, seasonal, environmental ) N Other N Breast Cancer N Drug/Latex Allergies/Reactions N Blood Transfusion N Dermatologic Disorders N Lung Disease N Defects or Inherited Disease N Breast Problem N Gestational Diabetes N Hematologic disorders N Anesthesia Complications N History of STI N Deep Vein Thrombosis N Polycystic ovary syndrome N Anxiety Disorder Y Autoimmune disease N Arthritis N Infertility N Polyps N Acid Reflux (GERD) Y History of abnormal pap N Cancer N Stroke N Varicosities N Neurologic/Epilepsy N Endometriosis N High Cholesterol Y Headaches N Fibromyalgia N Kidney Disease N Heart Problems N Kidney or Bladder Problems N Thyroid Problems Y GI Problems N Eating Disorder N Anemia N Art (IVF or FET) N Psychiatric Illness N Ovarian Cancer N Diabetes N Pulmonary (TB, Asthma) N Hepatitis/Liver Disease N No Past Medical History N Eczema N Urinary Tract Infection N Abuse/Domestic Violence N Asthma N Trauma/Violence N Depression/ depression Y Heart Disease Y Pre-Eclampsia N Hypertension Y Osteoporosis N Thrombophilias N Gynecological History Statement/Question Response Abnormal Pap Y On BCP's at Conception? N N STIs/STDs N HPV Vaccine N Current Control Method Hysterectom y Age at First Child 19 If Post Menopausal, Age at Menopause 26 Sexually Active? Y Age of first menstrual cycle 11 Date of Last Pap Smear Sexual Problems? N LMP Unknown Y Obstetrics History GPAL:G 3 P 0 0 2 1 Type Value Spontaneous 2 Living 1 Total 3 Past Encounters Encounter ID Performer Location Encounter Start Date Encounter Closed Date Diagnosis/Indication Diagnosis SNOMED-CT Code Diagnosis ICD10 Code Diagnosis Note [id number] MICAELA Leyva [place] [address] [address] 06/19/2022 11:53:07 06/19/2022 12:58:47 Gynecologic examination 76575484 Z01.419 Suggested Calcium with Vitamin D 1200-1500m g daily. Patient advised to get an annual flu shot in the fall and she could obtain at [facility] or [facility] take care clinic. Also to obtain TDap vaccinatio n if you have not had one in the last 10 years. Recommend yearly mammograms . Encouraged monthly self breast exams. Encourage safe sexual practices, to use condoms and limit partners if not already in a monogamous relationsh ip. Engage in daily exercise of low impact aerobic exercise 45-60 minutes 4-5 times weekly. Avoid tobacco and illicit drugs as well as using moderation with alcohol intake less than 1-2 8 oz beverages daily. This lifestyle behavior pattern will lead to less health conditions and longer life span. If BMI greater than 25 weight watchers or dietary consult advised. All questions have been answered. Patient appears to understand informatio n, but if you have any questions please call or respond to this email. Kuldeep, BSO in 1997 for endometrio sis/ovaria n cyst (non-cance lucinda indication s)Cryo done in her teens, paps normal after prior to hystVagina l d/c and fishy odor x 1 week. SA with steady male partnerUse s gaurav vaginal washSuspec t BV on exam, vaginitis panel sentVulvar care guidelines discussed : d/c use of vaginal wash/produ cts, free and clear soaps/laun dry products, cotton underwear only, sleep with no underwear, crisco/socorro onut oil/extra virigin olive oil to vulva twice dailyRx sent for BV, R/B/A discussedS TI testing doneHot flashes/ni ght sweats a few times per week. Was on estradiol spray years ago, d/c'd due to health concerns with her current medical hx per patient. Reviewed detailed medical hx, HTN/elevat ed cholestero l/triglyce rides. Not an ideal candidate for ERT, reviewed R/B. Already on medication for depression /anxiety. Discussed gabapentin , she would like to discuss this with her PCP first. We reviewed lifestyle modificati ons as well, exercise/w eight loss.UTD on mammogramc olonoscopy scheduled Time spent in visit is a total of 40 mins with at least 50% of visit consisting of counseling and review of plan of care. Vaginitis [id number] N76.0 Menopausal flushing 1983 81986 N95.1 [id number] MICAELA Leyva [place] [address] [address] 07/16/2022 15:46:56 07/16/2022 18:18:58 Menopausal symptom [id number] N95.1 today we discussed menopausal symptoms - hot flashes/mo od changesrev iewed medical hx and current medication sReviewed detailed medical hx, HTN/elevat ed cholestero l/triglyce rides. Not an ideal candidate for ERT, reviewed R/B. Already on medication for depression /anxiety. Discussed gabapentin , discussed R/B. She is currently on lamotrigin e - see psychiatri st.We discussed lifestyle modificati ons - weight loss, exercise, healthy eating. Decided to hold off on medication for now, she will continue to incorporat e lifestyle modificati ons. Encouraged her to f/u with PCP as well. Time spent in visit is a total of 15 mins with at least 50% of visit consisting of counseling and review of plan of care. Health Concerns Section Related Observation LastModified by Organization Detai ls LastModified Time None Recorded Concern Status LastModified by Organization Details LastModified Time None Recorded Advance Directives Directive N: Payers Encounter Date Sequence Insurance Name Policy Number Policy Cronin Covered Member ID Cronin Member ID Guarantor Name 06/19/2022 1 [place] [id number] Ronal Simmons [id number] Christina Simmons 07/16/2022 1 [place] [id number] Ronal Simmons [id number] Christina Simmons Notes Date Note Type Note Provider Name and Address Organization Details Recorded Time 06/19/2022 text/html Annual Staff Counselor Post-MenopausalR eported bypatient.Menopa usal Symptoms:normal vaginal lubrication;hot flashes Vaginal Bleeding:history of menopause having occurred; no history of post menopausal bleeding Urinary Symptoms:no hematuria; no incontinence; no nocturia; no urinary frequency Vulva:no genital lesion; no vulvar atrophy Vagina:no vaginal atrophy;foul-sme lling; Vaginal d/c, fishy odor Breast:no breast lump; no nipple discharge; no breast pain Sexual Complaints:no sexual complaints Psychological Symptoms:no depression; no anxiety Preventive Measures:encoura ge regular mammograms starting age 40; encourage self breast examination; encourage regular exercise; mammogram performed within the past year MICAELA Leyva [address], [place], [address], [facility] 06/19/2022 12:55:38 07/16/2022 text/html 47yopresents for f/u on menopausal symptoms MICAELA Leyva [address], [place], [address], [facility] 07/16/2022 18:10:44 OBGyn Episode Ob Episode Information Episode Created Date Number of Fetuses Patient Bloodtype Patient rh Status Prepregnancy Weight lbs Domestic Partner Domestic Partner Phone Father Name Nuclear Medicine Chief Technologist Status 06/20/19 23 1 CLOSED Fetus Data First Name Last Name Admitted to NICU Weight (g) Sex Living Outcome Pediatric Complications Fetus ID Race Codes Race Delivery Type F Full Term [id number] Vaginal Delivery Kenneth Calculation Initial Kenneth Date Initial Exam Date Initial Exam Provider Initial Ultrasound Date Last Menstrual Period Date Ultra Sound Weeks Gestation 0 Eighteen To Twenty Week Kenneth Update Ultra Sound Date Fundal Height At Umbil Quickening Date Ultra Sound Latest Weeks Gestation Final Kenneth Confirmed By Final Kenneth Confirmed Date Final Kenneth Date Ultra Sound Latest Days Gestation 0 0 Menstrual History Last Menstrual Date Menses Monthly On Bcp Conception Prior Menses Frequency Hcg Plus Date Menarche Onset Age Delivery Information Delivery Date Delivery Type Labor Anesthesia Weeks Gestation Incision Type Labor Labor Length Hrs Delivered By Post Complications Tubal Sterilization Discharge Date Comments 5 40 Discharge Information Feeding Method Contraceptive Method Maternal HG B and HCT Levels
--- OUTSIDE RECORDS SUMMARY | 2024-08-13 13:08 | XMS_ITS | Patient Health Record ---
Author Organization [facility] Address [address] [place] [address] Care Team Providers Care Sample Sewer Name Role Phone Brenton Gonsalves Primary Care Provider Reason For Referral No Information Immunizations Vaccine Route Administration Date Status Comme nts COVID-19 Moderna 1ST IM Intramuscular 05/17/2020 Administered EUA provided. Screening and consent reviewed and signed. Patient tolerated well. COVID-19 Moderna 2nd IM Intramuscular 06/14/2020 Administered Plan Of Treatment No Information
--- OUTSIDE RECORDS SUMMARY | 2024-08-13 13:08 | XMS_ITS | Clinical Summary ---
Author Organization [facility] Address [address] [place] [address] Care Team Providers Care Paediatric Thoracic Physician Name Role Phone Jorge L Kaminski DO Primary Care Provider [phone] Allergies No known active allergies Medications atorvastatin (LIPITOR) 20 mg tablet Take 20 mg by mouth every other day 08/29/2020 Active buPROPion XL (WELLBUTRIN XL) 150 mg 24 hr tablet Take 150 mg by mouth every morning 09/21/2020 Active citalopram (CeleXA) 20 mg tablet Take 20 mg by mouth every morning 09/21/2020 Active ezetimibe (ZETIA) 10 mg tablet Take 10 mg by mouth daily 08/29/2020 Active famotidine (PEPCID) 40 mg tablet Take 40 mg by mouth daily 09/18/2020 Active lamoTRIgine (LaMICtal) 100 mg tablet Take 100 mg by mouth every morning 09/20/2020 Active levothyroxine (SYNTHROID) 100 mcg tablet Take 100 mcg by mouth daily 08/29/2020 Active lisinopril-hydr oCHLOROthiazide (ZESTORETIC) 10-12.5 mg per tablet Take 1 tablet by mouth daily 08/29/2020 Active omeprazole (PriLOSEC) 40 mg capsule Take by mouth daily 08/29/2020 Active traZODone (DESYREL) 100 mg tablet Take 100 mg by mouth nightly at bedtime 09/20/2020 Active MELATONIN ORAL Take by mouth Active cholecalciferol , vitamin D3, (VITAMIN D3 ORAL) Take by mouth Active Active Problems Problem Noted Date Diagnosed Date Memory disturbance 09/27/2020 Surgical History Surgery Date Site/Laterality Comments HYSTERECTOMY GALLBLADDER SURGERY TONSILLECTOMY ORAL SURGERY Medical History Medical History Date Comments Bipolar disorder (HCC) Hypertension Seizures (HCC) High cholesterol Family History Medical History Relation Name Comments Drug abuse Brother 1 drowning Brother 2 Atrial fibrillation Father Dementia Father Hyperlipidemia Father Hypertension Father Hypothyroidism Father Asthma Mother Diabetes Mother Mucouspiphnoid Mother Relation Name Status Comments Brother 1 Brother 2 Father Alive Mother Alive Social History Tobacco Use Types Packs/Day Years Used Date Smoking Tobacco: Former Smokeless Tobacco: Never Personal Safety Answer Date Recorded Getting School Help Needed Not on file 06/26 Comments Unknown Sex and Gender Information Value Date Recorded Sex Assigned at Not on file 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 Gender Identity Not on file Sexual Orientation Not on file Obstetrics History Last Filed Vital Signs Vital Sign Reading Time Taken Comments Blood Pressure 112/82 09/27/2020 2:10 PM CDT Pulse 73 09/27/2020 2:10 PM CDT Temperature 36.6 C (97.8 F) 09/27/2020 2:10 PM CDT Respiratory Rate - - Oxygen Saturation - - Inhaled Oxygen Concentration - - Weight 94.3 kg (207 lb 12.8 oz) 09/27/2020 2:10 PM CDT Height 165.1 cm (5' 5 ) 09/27/2020 2:10 PM CDT Body Mass Index 34.58 09/27/2020 2:10 PM CDT Plan of Treatment Not on file Insurance [facility] [place] Care Teams Paediatric Thoracic Physician Relationship Specialty Start Date End Date Jorge L Kaminski DO PCP - General Internal Medicine 10/03/20
--- OUTSIDE RECORDS SUMMARY | 2024-08-13 13:08 | XMS_ITS | Referral Summary ---
Author Organization [facility] Address [address] [place] [address] Care Team Providers Care Wind Tunnel Technician Name Role Phone Jorge L Kaminski DO Primary Care Provider [phone] Allergies No known active allergies Medications atorvastatin [...] Noted Date Diagnosed Date Memory disturbance 09/27/2020 Social History Tobacco Use Types Packs/Day Years Used Date Smoking Tobacco: Former Smokeless Tobacco: Never Personal Safety Answer Date Recorded Getting School Help Needed Not on file 06/26 Comments Unknown Sex and Gender Information Value Date Recorded Sex Assigned at Not on file 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
--- OUTSIDE RECORDS SUMMARY | 2024-08-13 13:08 | XMS_ITS | Patient Health Record ---
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 Sawing And Assembly Supervisor Name Role Phone Kike Dick MD Primary Care Provider UnavailChaya Lowery Unavailable [phone] Marsha Padron Unavailable [phone] Migration, Provider Unavailable Unavailable Allergies No Known Allergies Reason For Referral No Information Medications Medication SIG (Take, Route, Frequency, Duration) Notes Start Date End Date Status Vraylar 4.5 MG 1 capsule Oral Once a day for 90 days Active Ezetimibe 10 MG 1 tablet Oral Once a day 07/17/2023 Active Prochlorperazine Maleate 10 MG Oral 07/17/2023 Unknown traZODone HCl 100 MG 1 tablet at bedtime Oral Once a day for 90 days d/c 50 mg dose Active Famotidine 40 MG 1 tablet Oral Once a day 07/17/2023 Active Omeprazole 40 MG 1 capsule 1/2 to 1 hour before morning meal Oral Once a day 07/17/2023 Active NEXLETOL 180 MG TABLET *Reorder from [employer] for eRx and Interaction Alerts* 07/17/2023 Not-Taking Atorvastatin Calcium 20 MG 1 tablet Oral every five days 07/17/2023 Active Ozempic (0.25 or 0.5 MG/DOSE) 2 MG/3ML Subcutaneous *Pick strength-form from [employer] for eRX* 07/17/2023 Not-Taking Levothyroxine Sodium 112 MCG 1 tablet in the morning on an empty stomach Oral Once a day 07/17/2023 Active lamoTRIgine 25 MG 1 tablet Orally daily for 30 days Active Folic Acid 1 MG 1 tablet Oral Once a day 07/17/2023 Active hydrOXYzine HCl 50 MG 1 tablet Oral twice a day for 90 days Active lamoTRIgine 25 MG 1 tablet Orally daily for 90 days Active ProAir HFA 108 (90 Base) MCG/ACT Inhalation 07/17/2023 Active Immunizations Vaccine Route Administration Date Status Comme nts Hep A, Adult Unknown 01/21/2006 Administered Hep A, Adult Unknown 01/05/2007 Administered Hep A-Hep B Unknown 03/02/2006 Administered Hep B, adult dosage Unknown 01/21/2006 Administered Hep B, adult dosage Unknown 01/05/2007 Administered Influenza virus vaccine, quadrivalent (IIV4), split virus, 0.25 mL dosage Unknown 01/21/2020 Administered Influenza, unspecified formulation Unknown 03/24/2012 A dministered Influenza, unspecified formulation Unknown 01/26/2013 A dministered MMR Unknown 03/02/2006 Administered Moderna Covid-19 Vaccine 1st dose Unknown 05/17/2020 Ad ministered Moderna Covid-19 Vaccine 1st dose Unknown 06/14/2020 Ad ministered Moderna Covid-19 Vaccine 1st dose Unknown 02/22/2021 Ad ministered Td (adult), adsorbed Unknown 01/21/2006 Administered Social History Tobacco Use: Social History Observation Description Date Details (start date - stop date) Current Smoker NA - NA Sex Assigned At : Social History Observation Description Sex Assigned At Female Household Question Answer Notes Marital status: Number of adults in household: 2 Tobacco Control (Standard) Question Answer Notes Tobacco use: Current smoker Problems Problem Type SNOMED Code ICD Code Onset Dates Problem Status W/U Status Risk Notes Problem Cannabis dependence (95438295) Cannabis dependence, uncomplicated (F12.20) 12/10/19 22 Active confirmed Problem Bipolar affective disorder, currently depressed, mild (761797513) Bipolar disorder, current episode depressed, mild (F31.31) 07/17/19 24 Active confirmed Problem Generalized anxiety disorder (71769335) Generalized anxiety disorder (F41.1) 07/17/19 24 Active confirmed Problem Posttraumatic stress disorder (00116686) Post-traumatic stress disorder, chronic (F43.12) 05/08/19 24 Active confirmed Problem Insomnia disorder related to another mental disorder (10430291) Insomnia due to other mental disorder (F51.05) 07/17/19 24 Active confirmed Problem Long-term current use of drug therapy (658935579) 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) 07/17/19 24 Active confirmed Problem Other obsessive-compuls shabnam disorder (F42.8) 06/05/19 24 Active confirmed Vital Signs Heart Rate 73 /min 06/24/2024 Height-cm 165.10 cm 06/24/2024 Blood pressure diastolic 81 mm Hg 06/24/2024 Weight-kg 90.36 kg 06/24/2024 Height 65.00 in 06/24/2024 Blood pressure systolic 126 mm Hg 06/24/2024 Weight 199.2 lbs 06/24/2024 BMI 33.14 kg/m2 06/24/2024 Encounters Encounter Location Date Provider Diagnosis [place] [id number] [facility] [address] [address] 09/09/[address] [address] 10/05/[address] [address] 11/13/2023 Chaya Verdugo Bipolar disorder, current episode depressed, mild F31.31 ; Generalized anxiety disorder F41.1 ; Insomnia due to other mental disorder F51.05 ; Post-traumatic stress disorder, chronic F43.12 ; Other half-way (current) drug therapy Z79.899 ; Cannabis dependence, uncomplicated F12.20 and Other obsessive-compulsive disorder F42.8 [place] [address] [facility] [address] [address] 02/15/2024 Chaya Verdugo [address] [address] 03/24/2024 Chaya Verdugo Bipolar disorder, current episode depressed, mild F31.31 ; Generalized anxiety disorder F41.1 ; Insomnia due to other mental disorder F51.05 ; Post-traumatic stress disorder, chronic F43.12 ; 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 combat operations officer (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) drug therapy Z79.899 ; Cannabis dependence, uncomplicated F12.20 and Other obsessive-compulsive disorder F42.8 [place] [id number] [facility] [address] [address] 06/24/2024 Chaya Verdugo Nicotine use Z72.0 ; Encounter for screening for depression Z13.31 ; Encounter for screening for cardiovascular disorders Z13.6 ; Bipolar disorder, current episode depressed, mild F31.31 ; Generalized anxiety disorder F41.1 ; Insomnia due to other mental disorder F51.05 ; Post-traumatic stress disorder, chronic F43.12 ; Other half-way (current) drug therapy Z79.899 ; Cannabis dependence, uncomplicated F12.20 and Other obsessive-compulsive disorder F42.8 [facility] [employer] [place] [id number] [facility] [address] [facility] [address] [place] [address] 08/29/2023 Provider Migration [facility] [address] [facility] [address] [facility] [address] [place] [address] 08/30/2023 Provider Migration [facility] [employer] [place] [id number] [facility] [address] [facility] [address] [place] [address] 04/12/2024 Chaya Verdugo Assessments Encounter Date Diagnosis (ICD Code) Assessment Notes Treatment Notes Treatment Clinical Notes Section Notes 11/13/2023 Bipolar disorder, current episode depressed, mild (ICD-10 - F31.31) Bipolar Disorder: Care Instructions material was published, Learning About Movement Disorders From Antipsychotic Medicines material was published, Learning About Mood Disorders material was published, Learning About How to Get Help During a Mental Health Crisis material was published 1. Bipolar disorder, most recent episode depression - Vraylar 4.5 mg daily for Bipolar - improved teresita mood stabilization and teresita- educated on rx monitor B/P educated on all medications, benefits, side effects and risk, and educated on depression, anxiety, and ADHD, mood d/o and educated on compliance of medications, metabolic and movement d/o education appointment is, continue therapy discussion with patient about course of treatment and patient instructions. education on serotonin syndrome SSRI side effects discussed including but not limited to, gastric upset, nausea, vomiting, diarrhea and/or constipation, weight changes, sexual side effects including loss of libido, increased suicidal thoughts/behaviors in children and young adults, and serotonin syndrome. Second generation antipsychotics (SGAs) have metabolic syndrome issues with weight gain, increase in prolactin, increased waist circumference, increased lipids, and increased glucose. Thus routine monitoring of weight, metabolic labs, etc. is indicated. A general rank ordering of antipsychotics that have the greatest to the least risk of metabolic effects is olanzapine, quetiapine, risperidone, ziprasidone, and aripiprazole. However, weight gain can occur with all of these drugs and considerable variability exists among patients receiving the same drug regarding the risk of metabolic effects. Anti-psychotic agents not only increase the risk of metabolic disorder, they also increase the risk of CVA, akathisia, and movement disorders including EPS or tardive dyskinesia (more common with first generation antipsychotics) and more. educated on importance Therapy and CBT - patient and agreed to therapy obtain labs PCP 2. Generalized anxiety disorder - educated to take Vistaril 50 mg three times a day for anxiety and panic as needed - educated on rx (Patient does not tolerate increase dose Wellbutrin) education on all medication refer to therapy and IOP patient will call and check on coverage and cost with a therapy group educated on all medications, benefits, side effects and risk, and educated on depression, anxiety, and ADHD, mood d/o and educated on compliance of medications, metabolic and movement d/o education appointment is, continue therapy discussion with patient about course of treatment and patient instructions. education on serotonin syndrome SSRI side effects discussed including but not limited to, gastric upset, nausea, vomiting, diarrhea and/or constipation, weight changes, sexual side effects including loss of libido, increased suicidal thoughts/behaviors in children and young adults, and serotonin syndrome. Second generation antipsychotics (SGAs) have metabolic syndrome issues with weight gain, increase in prolactin, increased waist circumference, increased lipids, and increased glucose. Thus routine monitoring of weight, metabolic labs, etc. is indicated. A general rank ordering of antipsychotics that have the greatest to the least risk of metabolic effects is olanzapine, quetiapine, risperidone, ziprasidone, and aripiprazole. However, weight gain can occur with all of these drugs and considerable variability exists among patients receiving the same drug regarding the risk of metabolic effects. Anti-psychotic agents not only increase the risk of metabolic disorder, they also increase the risk of CVA, akathisia, and movement disorders including EPS or tardive dyskinesia (more common with first generation antipsychotics) and more. hydroxyzine HCl 50 mg tablet - 3. Insomnia disorder related to another mental disorder - Melatonin 10 mg at night OTC limit caffeine therapy CBT will return to therapy Trazodone 50 mg at night- educated to decrease to 50 mg at night- no refill needed monitor B/P STAY HYDRATED monitor sleep and hygiene and memory RLSsleep apnea -has cpap not working - bipap plans to have implant 4. Attention deficit hyperactivity disorder, combined type -ANNA -2 REVIEWED no control substance r/t cannabis usetherapy 5. Long-term drug therapy - Discussion Notes refer to therapy obtain labs PCP 11/13/2023 Generalized anxiety disorder (ICD-10 - F41.1) Learning About Generalized Anxiety Disorder material was published, Generalized Anxiety Disorder: Care Instructions material was published, Learning About Anxiety Disorders material was published 1. Bipolar disorder, most recent episode depression - Vraylar 4.5 mg daily for Bipolar - improved teresita mood stabilization and teresita- educated on rx monitor B/P educated on all medications, benefits, side effects and risk, and educated on depression, anxiety, and ADHD, mood d/o and educated on compliance of medications, metabolic and movement d/o education appointment is, continue therapy discussion with patient about course of treatment and patient instructions. education on serotonin syndrome SSRI side effects discussed including but not limited to, gastric upset, nausea, vomiting, diarrhea and/or constipation, weight changes, sexual side effects including loss of libido, increased suicidal thoughts/behaviors in children and young adults, and serotonin syndrome. Second generation antipsychotics (SGAs) have metabolic syndrome issues with weight gain, increase in prolactin, increased waist circumference, increased lipids, and increased glucose. Thus routine monitoring of weight, metabolic labs, etc. is indicated. A general rank ordering of antipsychotics that have the greatest to the least risk of metabolic effects is olanzapine, quetiapine, risperidone, ziprasidone, and aripiprazole. However, weight gain can occur with all of these drugs and considerable variability exists among patients receiving the same drug regarding the risk of metabolic effects. Anti-psychotic agents not only increase the risk of metabolic disorder, they also increase the risk of CVA, akathisia, and movement disorders including EPS or tardive dyskinesia (more common with first generation antipsychotics) and more. educated on importance Therapy and CBT - patient and agreed to therapy obtain labs PCP 2. Generalized anxiety disorder - educated to take Vistaril 50 mg three times a day for anxiety and panic as needed - educated on rx (Patient does not tolerate increase dose Wellbutrin) education on all medication refer to therapy and IOP patient will call and check on coverage and cost with a therapy group educated on all medications, benefits, side effects and risk, and educated on depression, anxiety, and ADHD, mood d/o and educated on compliance of medications, metabolic and movement d/o education appointment is, continue therapy discussion with patient about course of treatment and patient instructions. education on serotonin syndrome SSRI side effects discussed including but not limited to, gastric upset, nausea, vomiting, diarrhea and/or constipation, weight changes, sexual side effects including loss of libido, increased suicidal thoughts/behaviors in children and young adults, and serotonin syndrome. Second generation antipsychotics (SGAs) have metabolic syndrome issues with weight gain, increase in prolactin, increased waist circumference, increased lipids, and increased glucose. Thus routine monitoring of weight, metabolic labs, etc. is indicated. A general rank ordering of antipsychotics that have the greatest to the least risk of metabolic effects is olanzapine, quetiapine, risperidone, ziprasidone, and aripiprazole. However, weight gain can occur with all of these drugs and considerable variability exists among patients receiving the same drug regarding the risk of metabolic effects. Anti-psychotic agents not only increase the risk of metabolic disorder, they also increase the risk of CVA, akathisia, and movement disorders including EPS or tardive dyskinesia (more common with first generation antipsychotics) and more. hydroxyzine HCl 50 mg tablet - 3. Insomnia disorder related to another mental disorder - Melatonin 10 mg at night OTC limit caffeine therapy CBT will return to therapy Trazodone 50 mg at night- educated to decrease to 50 mg at night- no refill needed monitor B/P STAY HYDRATED monitor sleep and hygiene and memory RLSsleep apnea -has cpap not working - bipap plans to have implant 4. Attention deficit hyperactivity disorder, combined type -ANNA -2 REVIEWED no control substance r/t cannabis usetherapy 5. Long-term drug therapy - Discussion Notes refer to therapy obtain labs PCP 03/24/2024 Bipolar disorder, current episode depressed, mild (ICD-10 - F31.31) Bipolar Disorder: Care Instructions material was published, Learning About Movement Disorders From Antipsychotic Medicines material was published, Learning About Mood Disorders material was published, Learning About How to Get Help During a Mental Health Crisis material was published 1. Bipolar disorder, most recent episode depression - Vraylar 4.5 mg daily for Bipolar - mood stabilization and teresita- educated on rx monitor B/P discuss and educated on Lamotrigine for depression Add Lamotrigne 25 mg daily - monitor for GI issues Lamotrigine lamotrigine has a serious rashes requiring hospitalization and discontinue treatment including Clemente Micah syndrome rare case of toxic epidermal necrolysis and cache related deaths. Incidence with adjunct of epilepsy treatment 0.8% in 2 to 16 years old and 0.3% in adults, bipolar and other mood disorders incidence 0.8% this initial monotherapy and 0.13% as adjunctive treatment. Other risk factor may include concomitant use of valproate acid derivative or exceeding initial lamotrigine does or does as clinician recommendation; most life-threatening rash of occurring first 2 to 8 week of treatment with isolated cases after prolonged treatment; though benign may occur, discontinue treatment at first sign of rash unless clearly not a drug related; TC treatment may not prevent trash from becoming life-threatening or permanently disabling or disfiguring. Comment reaction include, nausea/vomiting, dizziness/vertigo, visual disturbances, somnolence, ataxia, pruritus/rash, pharyngitis, headache, rhinitis, diarrhea, fever, asthenia, insomnia, tremor, abdominal pain, cough, accidental injury, constipation, dysmenorrhea, incoordination, anxiety, seizures, irritability, anorexia, xerostomia, and photosensitivity. Serious reactions include: Rash, severe; Dunaway Micah syndrome; toxic epidermal necrosis; injury edema, hypersensitivity reactions. Including fatal, multiple organ failure to safe fatal, rash with eosinophilia systemic symptoms, DIC, neutropenia, leukopenia, thrombocytopenia, pancytopenia, aplastic anemia, hemolytic anemia, i pancreatitis, hepatic failure, rhabdomyolysis, worsening of suicidal ideation, worsening of depression, cleft lip/palate [first trimester use] DO not Change Cosmetic, perfumes or soap for next 4 weeks. The patient was advice to take lamotrigine as prescribed the patient was instructed not to deviate from the prescription dosages. Stop lamotrigine is the first sign of rash. Patient was insisted to inform office if any of the serious side effect develops. Cannabis use Recommend decrease/stop cannabis use as it can negatively impact mood, motivation, anxiety, sleep, focus/concentratio n/memory (vigilance, elasticity, processing and attention); can also contribute to development of psychosis. http_s://www.nimh. nih.gov/health/top ics/mental-health- medications http_s://www.ju. org/Yiavo-Mshkui-K llness/Treatments/ Lbyuos-Zfdgnm-Fgnx cations Recommend decrease/stop cannabis use as it may be negatively impacting mood, motivation, anxiety, sleep, focus; can also contribute to development of psychosis Cannabis/marijuana information: http_s://dimitry.nih. gov/publications/d rugfacts/cannabis- marijuana http_s://www.Zubican/cannabi l-ood-uxmrvqww-mar ijuana-adhd/ http_s://www.ju. org/Kkovo-Vticlu-J llness/Mental-Heal th-Conditions http_s://psychJuice In The City.com/depression /val-izqbjyebu-rlj umvgr-jl-rjwvlxwvo n#treatments http__s://www.nimh .nih.gov/health/to pics/mental-health -medications http__s://www.ju .org/About-Mental- Illness/Treatments /Fhxuab-Sazxzl-Iij ications educated on all medications, benefits, side effects and risk, and educated on depression, anxiety, and ADHD, mood d/o and educated on compliance of medications, metabolic and movement d/o education appointment is, continue therapy discussion with patient about course of treatment and patient instructions. education on serotonin syndrome SSRI side effects discussed including but not limited to, gastric upset, nausea, vomiting, diarrhea and/or constipation, weight changes, sexual side effects including loss of libido, increased suicidal thoughts/behaviors in children and young adults, and serotonin syndrome. Second generation antipsychotics (SGAs) have metabolic syndrome issues with weight gain, increase in prolactin, increased waist circumference, increased lipids, and increased glucose. Thus routine monitoring of weight, metabolic labs, etc. is indicated. A general rank ordering of antipsychotics that have the greatest to the least risk of metabolic effects is olanzapine, quetiapine, risperidone, ziprasidone, and aripiprazole. However, weight gain can occur with all of these drugs and considerable variability exists among patients receiving the same drug regarding the risk of metabolic effects. Anti-psychotic agents not only increase the risk of metabolic disorder, they also increase the risk of CVA, akathisia, and movement disorders including EPS or tardive dyskinesia (more common with first generation antipsychotics) and more. educated on importance Therapy and CBT - patient and agreed to therapy obtain labs PCP 2. Generalized anxiety disorder - educated to take Vistaril 50 mg three times a day for anxiety and panic as needed - educated on rx (Patient does not tolerate increase dose Wellbutrin) education on all medication refer to therapy and IOP patient will call and check on coverage and cost with a therapy group educated on all medications, benefits, side effects and risk, and educated on depression, anxiety, and ADHD, mood d/o and educated on compliance of medications, metabolic and movement d/o education appointment is, continue therapy discussion with patient about course of treatment and patient instructions. education on serotonin syndrome SSRI side effects discussed including but not limited to, gastric upset, nausea, vomiting, diarrhea and/or constipation, weight changes, sexual side effects including loss of libido, increased suicidal thoughts/behaviors in children and young adults, and serotonin syndrome. Second generation antipsychotics (SGAs) have metabolic syndrome issues with weight gain, increase in prolactin, increased waist circumference, increased lipids, and increased glucose. Thus routine monitoring of weight, metabolic labs, etc. is indicated. A general rank ordering of antipsychotics that have the greatest to the least risk of metabolic effects is olanzapine, quetiapine, risperidone, ziprasidone, and aripiprazole. However, weight gain can occur with all of these drugs and considerable variability exists among patients receiving the same drug regarding the risk of metabolic effects. Anti-psychotic agents not only increase the risk of metabolic disorder, they also increase the risk of CVA, akathisia, and movement disorders including EPS or tardive dyskinesia (more common with first generation antipsychotics) and more. hydroxyzine HCl 50 mg tablet - 3. Insomnia disorder related to another mental disorder - Melatonin 10 mg at night OTC limit caffeine therapy CBT will return to therapy Trazodone 50 mg at night- educated on rx monitor B/P STAY HYDRATED monitor sleep and hygiene and memory RLSsleep apnea -has cpap not working - not using bipap plans to have implant- 4. Attention deficit hyperactivity disorder, combined type -ANNA -2 REVIEWED no control substance r/t cannabis usetherapy 5. Long-term drug therapy - Discussion Notes refer to therapy obtain labs PCP 06/24/2024 Nicotine use (ICD-10 - Z72.0) 1. Bipolar disorder, most recent episode depression - Vraylar 4.5 mg daily for Bipolar - no s/e helping depression no teresita mood stabilization and teresita- educated on rx monitor B/P discuss and educated on Lamotrigine for depression Lamotrigne 25 mg daily - reported helping monitor for GI issues Lamotrigine lamotrigine has a serious rashes requiring hospitalization and discontinue treatment including Clemente Micah syndrome rare case of toxic epidermal necrolysis and cache related deaths. Incidence with adjunct of epilepsy treatment 0.8% in 2 to 16 years old and 0.3% in adults, bipolar and other mood disorders incidence 0.8% this initial monotherapy and 0.13% as adjunctive treatment. Other risk factor may include concomitant use of valproate acid derivative or exceeding initial lamotrigine does or does as clinician recommendation; most life-threatening rash of occurring first 2 to 8 week of treatment with isolated cases after prolonged treatment; though benign may occur, discontinue treatment at first sign of rash unless clearly not a drug related; TC treatment may not prevent trash from becoming life-threatening or permanently disabling or disfiguring. Comment reaction include, nausea/vomiting, dizziness/vertigo, visual disturbances, somnolence, ataxia, pruritus/rash, pharyngitis, headache, rhinitis, diarrhea, fever, asthenia, insomnia, tremor, abdominal pain, cough, accidental injury, constipation, dysmenorrhea, incoordination, anxiety, seizures, irritability, anorexia, xerostomia, and photosensitivity. Serious reactions include: Rash, severe; Dunaway Micah syndrome; toxic epidermal necrosis; injury edema, hypersensitivity reactions. Including fatal, multiple organ failure to safe fatal, rash with eosinophilia systemic symptoms, DIC, neutropenia, leukopenia, thrombocytopenia, pancytopenia, aplastic anemia, hemolytic anemia, i pancreatitis, hepatic failure, rhabdomyolysis, worsening of suicidal ideation, worsening of depression, cleft lip/palate [first trimester use] DO not Change Cosmetic, perfumes or soap for next 4 weeks. The patient was advice to take lamotrigine as prescribed the patient was instructed not to deviate from the prescription dosages. Stop lamotrigine is the first sign of rash. Patient was insisted to inform office if any of the serious side effect develops. Cannabis use Recommend decrease/stop cannabis use as it can negatively impact mood, motivation, anxiety, sleep, focus/concentratio n/memory (vigilance, elasticity, processing and attention); can also contribute to development of psychosis. http_s://www.nimh. nih.gov/health/top ics/mental-health- medications http_s://www.ju. org/Oruvn-Vldtyk-O llness/Treatments/ Dyviyc-Ucariw-Iysg cations Recommend decrease/stop cannabis use as it may be negatively impacting mood, motivation, anxiety, sleep, focus; can also contribute to development of psychosis Cannabis/marijuana information: http_s://dimitry.nih. gov/publications/d rugfacts/cannabis- marijuana http_s://www.Zubican/cannabi o-fbm-nzkxqgtt-mar ijuana-adhd/ http_s://www.ju. org/Ueprl-Jhfcrl-Z llness/Mental-Heal th-Conditions http_s://Browsercast.com.com/depression /wqk-ueswfwgpq-jqn axrig-fr-hvvljmjyi n#treatments http__s://www.nimh .nih.gov/health/to pics/mental-health -medications http__s://www.ju .org/About-Mental- Illness/Treatments /Pldmxt-Ybyztp-Xbo ications educated on all medications, benefits, side effects and risk, and educated on depression, anxiety, and ADHD, mood d/o and educated on compliance of medications, metabolic and movement d/o education appointment is, continue therapy discussion with patient about course of treatment and patient instructions. education on serotonin syndrome SSRI side effects discussed including but not limited to, gastric upset, nausea, vomiting, diarrhea and/or constipation, weight changes, sexual side effects including loss of libido, increased suicidal thoughts/behaviors in children and young adults, and serotonin syndrome. Second generation antipsychotics (SGAs) have metabolic syndrome issues with weight gain, increase in prolactin, increased waist circumference, increased lipids, and increased glucose. Thus routine monitoring of weight, metabolic labs, etc. is indicated. A general rank ordering of antipsychotics that have the greatest to the least risk of metabolic effects is olanzapine, quetiapine, risperidone, ziprasidone, and aripiprazole. However, weight gain can occur with all of these drugs and considerable variability exists among patients receiving the same drug regarding the risk of metabolic effects. Anti-psychotic agents not only increase the risk of metabolic disorder, they also increase the risk of CVA, akathisia, and movement disorders including EPS or tardive dyskinesia (more common with first generation antipsychotics) and more. educated on importance Therapy and CBT - patient and agreed to therapy obtain labs PCP 2. Generalized anxiety disorder - Vistaril 50 mg twice a day for anxiety and panic as needed - educated on rx (Patient does not tolerate increase dose Wellbutrin) education on all medication refer to therapy and IOP patient will call and check on coverage and cost with a therapy group educated on all medications, benefits, side effects and risk, and educated on depression, anxiety, and ADHD, mood d/o and educated on compliance of medications, metabolic and movement d/o education appointment is, continue therapy discussion with patient about course of treatment and patient instructions. education on serotonin syndrome SSRI side effects discussed including but not limited to, gastric upset, nausea, vomiting, diarrhea and/or constipation, weight changes, sexual side effects including loss of libido, increased suicidal thoughts/behaviors in children and young adults, and serotonin syndrome. Second generation antipsychotics (SGAs) have metabolic syndrome issues with weight gain, increase in prolactin, increased waist circumference, increased lipids, and increased glucose. Thus routine monitoring of weight, metabolic labs, etc. is indicated. A general rank ordering of antipsychotics that have the greatest to the least risk of metabolic effects is olanzapine, quetiapine, risperidone, ziprasidone, and aripiprazole. However, weight gain can occur with all of these drugs and considerable variability exists among patients receiving the same drug regarding the risk of metabolic effects. Anti-psychotic agents not only increase the risk of metabolic disorder, they also increase the risk of CVA, akathisia, and movement disorders including EPS or tardive dyskinesia (more common with first generation antipsychotics) and more. hydroxyzine HCl 50 mg tablet - 3. Insomnia disorder related to another mental disorder - Melatonin 10 mg at night OTC limit caffeine therapy CBT will return to therapy increase Trazodone 100 mg at night- educated on rx monitor B/P- see PCP on rx STAY HYDRATED monitor sleep and hygiene and memory RLSsleep apnea -has cpap not working - not using bipap may plan to have implant- 4. Attention deficit hyperactivity disorder, combined type -ANNA -2 REVIEWED no control substance r/t cannabis use therapy discuss 5. Tobacco use discuss TMS for smoking cessation- pamplet given- patient will consider Smoking Education Do not smoke. Nicotine and other chemicals in cigarettes and cigars can cause lung damage. Ask your healthcare provider for information if you currently smoke and need help to quit. E-cigarettes or smokeless tobacco still contain nicotine. Talk to your healthcare provider before you use these products. education on decrease to stopping nicotine products and stop smoking hotline given -Quit - Yes [place] Tobacco Quitline Call a Smoking Quitline The National [employer] [place]'s Smoking Quitline, (8-787-32S-QUIT) Smokefree.gov, which connects you with your State's Quitline, (6-247-UVLCKJQ) Veterans Smoking Quitline, (7-237-FSFWSSL) Discussion Notes refer to therapy obtain labs PCP TMS for smoking cessation 06/24/2024 Encounter for screening for depression (ICD-10 - Z13.31) 1. Bipolar disorder, most recent episode depression - Vraylar 4.5 mg daily for Bipolar - no s/e helping depression no teresita mood stabilization and teresita- educated on rx monitor B/P discuss and educated on Lamotrigine for depression Lamotrigne 25 mg daily - reported helping monitor for GI issues Lamotrigine lamotrigine has a serious rashes requiring hospitalization and discontinue treatment including Clemente Micah syndrome rare case of toxic epidermal necrolysis and cache related deaths. Incidence with adjunct of epilepsy treatment 0.8% in 2 to 16 years old and 0.3% in adults, bipolar and other mood disorders incidence 0.8% this initial monotherapy and 0.13% as adjunctive treatment. Other risk factor may include concomitant use of valproate acid derivative or exceeding initial lamotrigine does or does as clinician recommendation; most life-threatening rash of occurring first 2 to 8 week of treatment with isolated cases after prolonged treatment; though benign may occur, discontinue treatment at first sign of rash unless clearly not a drug related; TC treatment may not prevent trash from becoming life-threatening or permanently disabling or disfiguring. Comment reaction include, nausea/vomiting, dizziness/vertigo, visual disturbances, somnolence, ataxia, pruritus/rash, pharyngitis, headache, rhinitis, diarrhea, fever, asthenia, insomnia, tremor, abdominal pain, cough, accidental injury, constipation, dysmenorrhea, incoordination, anxiety, seizures, irritability, anorexia, xerostomia, and photosensitivity. Serious reactions include: Rash, severe; Dunaway Micah syndrome; toxic epidermal necrosis; injury edema, hypersensitivity reactions. Including fatal, multiple organ failure to safe fatal, rash with eosinophilia systemic symptoms, DIC, neutropenia, leukopenia, thrombocytopenia, pancytopenia, aplastic anemia, hemolytic anemia, i pancreatitis, hepatic failure, rhabdomyolysis, worsening of suicidal ideation, worsening of depression, cleft lip/palate [first trimester use] DO not Change Cosmetic, perfumes or soap for next 4 weeks. The patient was advice to take lamotrigine as prescribed the patient was instructed not to deviate from the prescription dosages. Stop lamotrigine is the first sign of rash. Patient was insisted to inform office if any of the serious side effect develops. Cannabis use Recommend decrease/stop cannabis use as it can negatively impact mood, motivation, anxiety, sleep, focus/concentratio n/memory (vigilance, elasticity, processing and attention); can also contribute to development of psychosis. http_s://www.nimh. nih.gov/health/top ics/mental-health- medications http_s://www.ju. org/Lkpop-Bggyrt-J llness/Treatments/ Kzlntk-Nvlrgs-Kmko cations Recommend decrease/stop cannabis use as it may be negatively impacting mood, motivation, anxiety, sleep, focus; can also contribute to development of psychosis Cannabis/marijuana information: http_s://dimitry.nih. gov/publications/d rugfacts/cannabis- marijuana http_s://www.Zubican/cannabi h-spv-mhhtxqdl-mar ijuana-adhd/ http_s://www.ju. org/Meink-Nrparz-W llness/Mental-Heal th-Conditions http_s://psychJuice In The City.com/depression /fdn-nncnlzovu-ucp kjgyd-ub-pyjvtmxky n#treatments http__s://www.nimh .nih.gov/health/to pics/mental-health -medications http__s://www.ju .org/About-Mental- Illness/Treatments /Imthxa-Wliize-Tmr ications educated on all medications, benefits, side effects and risk, and educated on depression, anxiety, and ADHD, mood d/o and educated on compliance of medications, metabolic and movement d/o education appointment is, continue therapy discussion with patient about course of treatment and patient instructions. education on serotonin syndrome SSRI side effects discussed including but not limited to, gastric upset, nausea, vomiting, diarrhea and/or constipation, weight changes, sexual side effects including loss of libido, increased suicidal thoughts/behaviors in children and young adults, and serotonin syndrome. Second generation antipsychotics (SGAs) have metabolic syndrome issues with weight gain, increase in prolactin, increased waist circumference, increased lipids, and increased glucose. Thus routine monitoring of weight, metabolic labs, etc. is indicated. A general rank ordering of antipsychotics that have the greatest to the least risk of metabolic effects is olanzapine, quetiapine, risperidone, ziprasidone, and aripiprazole. However, weight gain can occur with all of these drugs and considerable variability exists among patients receiving the same drug regarding the risk of metabolic effects. Anti-psychotic agents not only increase the risk of metabolic disorder, they also increase the risk of CVA, akathisia, and movement disorders including EPS or tardive dyskinesia (more common with first generation antipsychotics) and more. educated on importance Therapy and CBT - patient and agreed to therapy obtain labs PCP 2. Generalized anxiety disorder - Vistaril 50 mg twice a day for anxiety and panic as needed - educated on rx (Patient does not tolerate increase dose Wellbutrin) education on all medication refer to therapy and IOP patient will call and check on coverage and cost with a therapy group educated on all medications, benefits, side effects and risk, and educated on depression, anxiety, and ADHD, mood d/o and educated on compliance of medications, metabolic and movement d/o education appointment is, continue therapy discussion with patient about course of treatment and patient instructions. education on serotonin syndrome SSRI side effects discussed including but not limited to, gastric upset, nausea, vomiting, diarrhea and/or constipation, weight changes, sexual side effects including loss of libido, increased suicidal thoughts/behaviors in children and young adults, and serotonin syndrome. Second generation antipsychotics (SGAs) have metabolic syndrome issues with weight gain, increase in prolactin, increased waist circumference, increased lipids, and increased glucose. Thus routine monitoring of weight, metabolic labs, etc. is indicated. A general rank ordering of antipsychotics that have the greatest to the least risk of metabolic effects is olanzapine, quetiapine, risperidone, ziprasidone, and aripiprazole. However, weight gain can occur with all of these drugs and considerable variability exists among patients receiving the same drug regarding the risk of metabolic effects. Anti-psychotic agents not only increase the risk of metabolic disorder, they also increase the risk of CVA, akathisia, and movement disorders including EPS or tardive dyskinesia (more common with first generation antipsychotics) and more. hydroxyzine HCl 50 mg tablet - 3. Insomnia disorder related to another mental disorder - Melatonin 10 mg at night OTC limit caffeine therapy CBT will return to therapy increase Trazodone 100 mg at night- educated on rx monitor B/P- see PCP on rx STAY HYDRATED monitor sleep and hygiene and memory RLSsleep apnea -has cpap not working - not using bipap may plan to have implant- 4. Attention deficit hyperactivity disorder, combined type -ANNA -2 REVIEWED no control substance r/t cannabis use therapy discuss 5. Tobacco use discuss TMS for smoking cessation- pamplet given- patient will consider Smoking Education Do not smoke. Nicotine and other chemicals in cigarettes and cigars can cause lung damage. Ask your healthcare provider for information if you currently smoke and need help to quit. E-cigarettes or smokeless tobacco still contain nicotine. Talk to your healthcare provider before you use these products. education on decrease to stopping nicotine products and stop smoking hotline given 822-Quit - Yes [place] Tobacco Quitline Call a Smoking Quitline The National [employer] [place]'s Smoking Quitline, (0-460-98K-QUIT) Smokefree.gov, which connects you with your State's Quitline, (4-335-LGGMWSZ) Veterans Smoking Quitline, (1-023-RCQAUUW) Discussion Notes refer to therapy obtain labs PCP TMS for smoking cessation 03/24/2024 Generalized anxiety disorder (ICD-10 - F41.1) Learning About Generalized Anxiety Disorder material was published, Generalized Anxiety Disorder: Care Instructions material was published, Learning About Anxiety Disorders material was published 1. Bipolar disorder, most recent episode depression - Vraylar 4.5 mg daily for Bipolar - mood stabilization and teresita- educated on rx monitor B/P discuss and educated on Lamotrigine for depression Add Lamotrigne 25 mg daily - monitor for GI issues Lamotrigine lamotrigine has a serious rashes requiring hospitalization and discontinue treatment including Clemente Micah syndrome rare case of toxic epidermal necrolysis and cache related deaths. Incidence with adjunct of epilepsy treatment 0.8% in 2 to 16 years old and 0.3% in adults, bipolar and other mood disorders incidence 0.8% this initial monotherapy and 0.13% as adjunctive treatment. Other risk factor may include concomitant use of valproate acid derivative or exceeding initial lamotrigine does or does as clinician recommendation; most life-threatening rash of occurring first 2 to 8 week of treatment with isolated cases after prolonged treatment; though benign may occur, discontinue treatment at first sign of rash unless clearly not a drug related; TC treatment may not prevent trash from becoming life-threatening or permanently disabling or disfiguring. Comment reaction include, nausea/vomiting, dizziness/vertigo, visual disturbances, somnolence, ataxia, pruritus/rash, pharyngitis, headache, rhinitis, diarrhea, fever, asthenia, insomnia, tremor, abdominal pain, cough, accidental injury, constipation, dysmenorrhea, incoordination, anxiety, seizures, irritability, anorexia, xerostomia, and photosensitivity. Serious reactions include: Rash, severe; Dunaway Micah syndrome; toxic epidermal necrosis; injury edema, hypersensitivity reactions. Including fatal, multiple organ failure to safe fatal, rash with eosinophilia systemic symptoms, DIC, neutropenia, leukopenia, thrombocytopenia, pancytopenia, aplastic anemia, hemolytic anemia, i pancreatitis, hepatic failure, rhabdomyolysis, worsening of suicidal ideation, worsening of depression, cleft lip/palate [first trimester use] DO not Change Cosmetic, perfumes or soap for next 4 weeks. The patient was advice to take lamotrigine as prescribed the patient was instructed not to deviate from the prescription dosages. Stop lamotrigine is the first sign of rash. Patient was insisted to inform office if any of the serious side effect develops. Cannabis use Recommend decrease/stop cannabis use as it can negatively impact mood, motivation, anxiety, sleep, focus/concentratio n/memory (vigilance, elasticity, processing and attention); can also contribute to development of psychosis. http_s://www.nimh. nih.gov/health/top ics/mental-health- medications http_s://www.ju. org/Btvko-Ggqtuk-V llness/Treatments/ Qihwvi-Anusda-Mlmy cations Recommend decrease/stop cannabis use as it may be negatively impacting mood, motivation, anxiety, sleep, focus; can also contribute to development of psychosis Cannabis/marijuana information: http_s://dimitry.nih. gov/publications/d rugfacts/cannabis- marijuana http_s://www.Zubican/cannabi x-brl-hfpueeql-mar ijuana-adhd/ http_s://www.ju. org/Debdc-Vjwsuz-D llness/Mental-Heal th-Conditions http_s://Browsercast.com.com/depression /hyg-lmxeivhoe-qel cjosn-ad-hqsvabnme n#treatments http__s://www.nimh .nih.gov/health/to pics/mental-health -medications http__s://www.ju .org/About-Mental- Illness/Treatments /Iioplg-Mouyvl-Ykf ications educated on all medications, benefits, side effects and risk, and educated on depression, anxiety, and ADHD, mood d/o and educated on compliance of medications, metabolic and movement d/o education appointment is, continue therapy discussion with patient about course of treatment and patient instructions. education on serotonin syndrome SSRI side effects discussed including but not limited to, gastric upset, nausea, vomiting, diarrhea and/or constipation, weight changes, sexual side effects including loss of libido, increased suicidal thoughts/behaviors in children and young adults, and serotonin syndrome. Second generation antipsychotics (SGAs) have metabolic syndrome issues with weight gain, increase in prolactin, increased waist circumference, increased lipids, and increased glucose. Thus routine monitoring of weight, metabolic labs, etc. is indicated. A general rank ordering of antipsychotics that have the greatest to the least risk of metabolic effects is olanzapine, quetiapine, risperidone, ziprasidone, and aripiprazole. However, weight gain can occur with all of these drugs and considerable variability exists among patients receiving the same drug regarding the risk of metabolic effects. Anti-psychotic agents not only increase the risk of metabolic disorder, they also increase the risk of CVA, akathisia, and movement disorders including EPS or tardive dyskinesia (more common with first generation antipsychotics) and more. educated on importance Therapy and CBT - patient and agreed to therapy obtain labs PCP 2. Generalized anxiety disorder - educated to take Vistaril 50 mg three times a day for anxiety and panic as needed - educated on rx (Patient does not tolerate increase dose Wellbutrin) education on all medication refer to therapy and IOP patient will call and check on coverage and cost with a therapy group educated on all medications, benefits, side effects and risk, and educated on depression, anxiety, and ADHD, mood d/o and educated on compliance of medications, metabolic and movement d/o education appointment is, continue therapy discussion with patient about course of treatment and patient instructions. education on serotonin syndrome SSRI side effects discussed including but not limited to, gastric upset, nausea, vomiting, diarrhea and/or constipation, weight changes, sexual side effects including loss of libido, increased suicidal thoughts/behaviors in children and young adults, and serotonin syndrome. Second generation antipsychotics (SGAs) have metabolic syndrome issues with weight gain, increase in prolactin, increased waist circumference, increased lipids, and increased glucose. Thus routine monitoring of weight, metabolic labs, etc. is indicated. A general rank ordering of antipsychotics that have the greatest to the least risk of metabolic effects is olanzapine, quetiapine, risperidone, ziprasidone, and aripiprazole. However, weight gain can occur with all of these drugs and considerable variability exists among patients receiving the same drug regarding the risk of metabolic effects. Anti-psychotic agents not only increase the risk of metabolic disorder, they also increase the risk of CVA, akathisia, and movement disorders including EPS or tardive dyskinesia (more common with first generation antipsychotics) and more. hydroxyzine HCl 50 mg tablet - 3. Insomnia disorder related to another mental disorder - Melatonin 10 mg at night OTC limit caffeine therapy CBT will return to therapy Trazodone 50 mg at night- educated on rx monitor B/P STAY HYDRATED monitor sleep and hygiene and memory RLSsleep apnea -has cpap not working - not using bipap plans to have implant- 4. Attention deficit hyperactivity disorder, combined type -ANNA -2 REVIEWED no control substance r/t cannabis usetherapy 5. Long-term drug therapy - Discussion Notes refer to therapy obtain labs PCP 11/13/2023 Insomnia due to other mental disorder (ICD-10 - F51.05) 1. Bipolar disorder, most recent episode depression - Vraylar 4.5 mg daily for Bipolar - improved teresita mood stabilization and teresita- educated on rx monitor B/P educated on all medications, benefits, side effects and risk, and educated on depression, anxiety, and ADHD, mood d/o and educated on compliance of medications, metabolic and movement d/o education appointment is, continue therapy discussion with patient about course of treatment and patient instructions. education on serotonin syndrome SSRI side effects discussed including but not limited to, gastric upset, nausea, vomiting, diarrhea and/or constipation, weight changes, sexual side effects including loss of libido, increased suicidal thoughts/behaviors in children and young adults, and serotonin syndrome. Second generation antipsychotics (SGAs) have metabolic syndrome issues with weight gain, increase in prolactin, increased waist circumference, increased lipids, and increased glucose. Thus routine monitoring of weight, metabolic labs, etc. is indicated. A general rank ordering of antipsychotics that have the greatest to the least risk of metabolic effects is olanzapine, quetiapine, risperidone, ziprasidone, and aripiprazole. However, weight gain can occur with all of these drugs and considerable variability exists among patients receiving the same drug regarding the risk of metabolic effects. Anti-psychotic agents not only increase the risk of metabolic disorder, they also increase the risk of CVA, akathisia, and movement disorders including EPS or tardive dyskinesia (more common with first generation antipsychotics) and more. educated on importance Therapy and CBT - patient and agreed to therapy obtain labs PCP 2. Generalized anxiety disorder - educated to take Vistaril 50 mg three times a day for anxiety and panic as needed - educated on rx (Patient does not tolerate increase dose Wellbutrin) education on all medication refer to therapy and IOP patient will call and check on coverage and cost with a therapy group educated on all medications, benefits, side effects and risk, and educated on depression, anxiety, and ADHD, mood d/o and educated on compliance of medications, metabolic and movement d/o education appointment is, continue therapy discussion with patient about course of treatment and patient instructions. education on serotonin syndrome SSRI side effects discussed including but not limited to, gastric upset, nausea, vomiting, diarrhea and/or constipation, weight changes, sexual side effects including loss of libido, increased suicidal thoughts/behaviors in children and young adults, and serotonin syndrome. Second generation antipsychotics (SGAs) have metabolic syndrome issues with weight gain, increase in prolactin, increased waist circumference, increased lipids, and increased glucose. Thus routine monitoring of weight, metabolic labs, etc. is indicated. A general rank ordering of antipsychotics that have the greatest to the least risk of metabolic effects is olanzapine, quetiapine, risperidone, ziprasidone, and aripiprazole. However, weight gain can occur with all of these drugs and considerable variability exists among patients receiving the same drug regarding the risk of metabolic effects. Anti-psychotic agents not only increase the risk of metabolic disorder, they also increase the risk of CVA, akathisia, and movement disorders including EPS or tardive dyskinesia (more common with first generation antipsychotics) and more. hydroxyzine HCl 50 mg tablet - 3. Insomnia disorder related to another mental disorder - Melatonin 10 mg at night OTC limit caffeine therapy CBT will return to therapy Trazodone 50 mg at night- educated to decrease to 50 mg at night- no refill needed monitor B/P STAY HYDRATED monitor sleep and hygiene and memory RLSsleep apnea -has cpap not working - bipap plans to have implant 4. Attention deficit hyperactivity disorder, combined type -ANNA -2 REVIEWED no control substance r/t cannabis usetherapy 5. Long-term drug therapy - Discussion Notes refer to therapy obtain labs PCP 11/13/2023 Post-traumatic stress disorder, chronic (ICD-10 - F43.12) Post-Traumatic Stress Disorder (PTSD): Care Instructions material was published 1. Bipolar disorder, most recent episode depression - Vraylar 4.5 mg daily for Bipolar - improved teresita mood stabilization and teresita- educated on rx monitor B/P educated on all medications, benefits, side effects and risk, and educated on depression, anxiety, and ADHD, mood d/o and educated on compliance of medications, metabolic and movement d/o education appointment is, continue therapy discussion with patient about course of treatment and patient instructions. education on serotonin syndrome SSRI side effects discussed including but not limited to, gastric upset, nausea, vomiting, diarrhea and/or constipation, weight changes, sexual side effects including loss of libido, increased suicidal thoughts/behaviors in children and young adults, and serotonin syndrome. Second generation antipsychotics (SGAs) have metabolic syndrome issues with weight gain, increase in prolactin, increased waist circumference, increased lipids, and increased glucose. Thus routine monitoring of weight, metabolic labs, etc. is indicated. A general rank ordering of antipsychotics that have the greatest to the least risk of metabolic effects is olanzapine, quetiapine, risperidone, ziprasidone, and aripiprazole. However, weight gain can occur with all of these drugs and considerable variability exists among patients receiving the same drug regarding the risk of metabolic effects. Anti-psychotic agents not only increase the risk of metabolic disorder, they also increase the risk of CVA, akathisia, and movement disorders including EPS or tardive dyskinesia (more common with first generation antipsychotics) and more. educated on importance Therapy and CBT - patient and agreed to therapy obtain labs PCP 2. Generalized anxiety disorder - educated to take Vistaril 50 mg three times a day for anxiety and panic as needed - educated on rx (Patient does not tolerate increase dose Wellbutrin) education on all medication refer to therapy and IOP patient will call and check on coverage and cost with a therapy group educated on all medications, benefits, side effects and risk, and educated on depression, anxiety, and ADHD, mood d/o and educated on compliance of medications, metabolic and movement d/o education appointment is, continue therapy discussion with patient about course of treatment and patient instructions. education on serotonin syndrome SSRI side effects discussed including but not limited to, gastric upset, nausea, vomiting, diarrhea and/or constipation, weight changes, sexual side effects including loss of libido, increased suicidal thoughts/behaviors in children and young adults, and serotonin syndrome. Second generation antipsychotics (SGAs) have metabolic syndrome issues with weight gain, increase in prolactin, increased waist circumference, increased lipids, and increased glucose. Thus routine monitoring of weight, metabolic labs, etc. is indicated. A general rank ordering of antipsychotics that have the greatest to the least risk of metabolic effects is olanzapine, quetiapine, risperidone, ziprasidone, and aripiprazole. However, weight gain can occur with all of these drugs and considerable variability exists among patients receiving the same drug regarding the risk of metabolic effects. Anti-psychotic agents not only increase the risk of metabolic disorder, they also increase the risk of CVA, akathisia, and movement disorders including EPS or tardive dyskinesia (more common with first generation antipsychotics) and more. hydroxyzine HCl 50 mg tablet - 3. Insomnia disorder related to another mental disorder - Melatonin 10 mg at night OTC limit caffeine therapy CBT will return to therapy Trazodone 50 mg at night- educated to decrease to 50 mg at night- no refill needed monitor B/P STAY HYDRATED monitor sleep and hygiene and memory RLSsleep apnea -has cpap not working - bipap plans to have implant 4. Attention deficit hyperactivity disorder, combined type -ANNA -2 REVIEWED no control substance r/t cannabis usetherapy 5. Long-term drug therapy - Discussion Notes refer to therapy obtain labs PCP 03/24/2024 Insomnia due to other mental disorder (ICD-10 - F51.05) 1. Bipolar disorder, most recent episode depression - Vraylar 4.5 mg daily for Bipolar - mood stabilization and teresita- educated on rx monitor B/P discuss and educated on Lamotrigine for depression Add Lamotrigne 25 mg daily - monitor for GI issues Lamotrigine lamotrigine has a serious rashes requiring hospitalization and discontinue treatment including Clemente Micah syndrome rare case of toxic epidermal necrolysis and cache related deaths. Incidence with adjunct of epilepsy treatment 0.8% in 2 to 16 years old and 0.3% in adults, bipolar and other mood disorders incidence 0.8% this initial monotherapy and 0.13% as adjunctive treatment. Other risk factor may include concomitant use of valproate acid derivative or exceeding initial lamotrigine does or does as clinician recommendation; most life-threatening rash of occurring first 2 to 8 week of treatment with isolated cases after prolonged treatment; though benign may occur, discontinue treatment at first sign of rash unless clearly not a drug related; TC treatment may not prevent trash from becoming life-threatening or permanently disabling or disfiguring. Comment reaction include, nausea/vomiting, dizziness/vertigo, visual disturbances, somnolence, ataxia, pruritus/rash, pharyngitis, headache, rhinitis, diarrhea, fever, asthenia, insomnia, tremor, abdominal pain, cough, accidental injury, constipation, dysmenorrhea, incoordination, anxiety, seizures, irritability, anorexia, xerostomia, and photosensitivity. Serious reactions include: Rash, severe; Dunaway Micah syndrome; toxic epidermal necrosis; injury edema, hypersensitivity reactions. Including fatal, multiple organ failure to safe fatal, rash with eosinophilia systemic symptoms, DIC, neutropenia, leukopenia, thrombocytopenia, pancytopenia, aplastic anemia, hemolytic anemia, i pancreatitis, hepatic failure, rhabdomyolysis, worsening of suicidal ideation, worsening of depression, cleft lip/palate [first trimester use] DO not Change Cosmetic, perfumes or soap for next 4 weeks. The patient was advice to take lamotrigine as prescribed the patient was instructed not to deviate from the prescription dosages. Stop lamotrigine is the first sign of rash. Patient was insisted to inform office if any of the serious side effect develops. Cannabis use Recommend decrease/stop cannabis use as it can negatively impact mood, motivation, anxiety, sleep, focus/concentratio n/memory (vigilance, elasticity, processing and attention); can also contribute to development of psychosis. http_s://www.nimh. nih.gov/health/top ics/mental-health- medications http_s://www.ju. org/Pxgso-Qmybwr-Q llness/Treatments/ Uqpyqy-Kwgazx-Ftmf cations Recommend decrease/stop cannabis use as it may be negatively impacting mood, motivation, anxiety, sleep, focus; can also contribute to development of psychosis Cannabis/marijuana information: http_s://dimitry.nih. gov/publications/d rugfacts/cannabis- marijuana http_s://www.Zubican/cannabnediyor.com e-roo-ygfdrwzv-mar ijuana-adhd/ http_s://www.ju. org/Fdgqu-Gdeusj-F llness/Mental-Heal th-Conditions http_s://Browsercast.com.com/depression /tgb-szkuymdzw-dhb ouyaj-er-jeembjzkv n#treatments http__s://www.nimh .nih.gov/health/to pics/mental-health -medications http__s://www.ju .org/About-Mental- Illness/Treatments /Uolrzv-Lpbwph-Jir ications educated on all medications, benefits, side effects and risk, and educated on depression, anxiety, and ADHD, mood d/o and educated on compliance of medications, metabolic and movement d/o education appointment is, continue therapy discussion with patient about course of treatment and patient instructions. education on serotonin syndrome SSRI side effects discussed including but not limited to, gastric upset, nausea, vomiting, diarrhea and/or constipation, weight changes, sexual side effects including loss of libido, increased suicidal thoughts/behaviors in children and young adults, and serotonin syndrome. Second generation antipsychotics (SGAs) have metabolic syndrome issues with weight gain, increase in prolactin, increased waist circumference, increased lipids, and increased glucose. Thus routine monitoring of weight, metabolic labs, etc. is indicated. A general rank ordering of antipsychotics that have the greatest to the least risk of metabolic effects is olanzapine, quetiapine, risperidone, ziprasidone, and aripiprazole. However, weight gain can occur with all of these drugs and considerable variability exists among patients receiving the same drug regarding the risk of metabolic effects. Anti-psychotic agents not only increase the risk of metabolic disorder, they also increase the risk of CVA, akathisia, and movement disorders including EPS or tardive dyskinesia (more common with first generation antipsychotics) and more. educated on importance Therapy and CBT - patient and agreed to therapy obtain labs PCP 2. Generalized anxiety disorder - educated to take Vistaril 50 mg three times a day for anxiety and panic as needed - educated on rx (Patient does not tolerate increase dose Wellbutrin) education on all medication refer to therapy and IOP patient will call and check on coverage and cost with a therapy group educated on all medications, benefits, side effects and risk, and educated on depression, anxiety, and ADHD, mood d/o and educated on compliance of medications, metabolic and movement d/o education appointment is, continue therapy discussion with patient about course of treatment and patient instructions. education on serotonin syndrome SSRI side effects discussed including but not limited to, gastric upset, nausea, vomiting, diarrhea and/or constipation, weight changes, sexual side effects including loss of libido, increased suicidal thoughts/behaviors in children and young adults, and serotonin syndrome. Second generation antipsychotics (SGAs) have metabolic syndrome issues with weight gain, increase in prolactin, increased waist circumference, increased lipids, and increased glucose. Thus routine monitoring of weight, metabolic labs, etc. is indicated. A general rank ordering of antipsychotics that have the greatest to the least risk of metabolic effects is olanzapine, quetiapine, risperidone, ziprasidone, and aripiprazole. However, weight gain can occur with all of these drugs and considerable variability exists among patients receiving the same drug regarding the risk of metabolic effects. Anti-psychotic agents not only increase the risk of metabolic disorder, they also increase the risk of CVA, akathisia, and movement disorders including EPS or tardive dyskinesia (more common with first generation antipsychotics) and more. hydroxyzine HCl 50 mg tablet - 3. Insomnia disorder related to another mental disorder - Melatonin 10 mg at night OTC limit caffeine therapy CBT will return to therapy Trazodone 50 mg at night- educated on rx monitor B/P STAY HYDRATED monitor sleep and hygiene and memory RLSsleep apnea -has cpap not working - not using bipap plans to have implant- 4. Attention deficit hyperactivity disorder, combined type -ANNA -2 REVIEWED no control substance r/t cannabis usetherapy 5. Long-term drug therapy - Discussion Notes refer to therapy obtain labs PCP 06/24/2024 Encounter for screening for cardiovascular disorders (ICD-10 - Z13.6) 1. Bipolar disorder, most recent episode depression - Vraylar 4.5 mg daily for Bipolar - no s/e helping depression no teresita mood stabilization and teresita- educated on rx monitor B/P discuss and educated on Lamotrigine for depression Lamotrigne 25 mg daily - reported helping monitor for GI issues Lamotrigine lamotrigine has a serious rashes requiring hospitalization and discontinue treatment including Clemente Micah syndrome rare case of toxic epidermal necrolysis and cache related deaths. Incidence with adjunct of epilepsy treatment 0.8% in 2 to 16 years old and 0.3% in adults, bipolar and other mood disorders incidence 0.8% this initial monotherapy and 0.13% as adjunctive treatment. Other risk factor may include concomitant use of valproate acid derivative or exceeding initial lamotrigine does or does as clinician recommendation; most life-threatening rash of occurring first 2 to 8 week of treatment with isolated cases after prolonged treatment; though benign may occur, discontinue treatment at first sign of rash unless clearly not a drug related; TC treatment may not prevent trash from becoming life-threatening or permanently disabling or disfiguring. Comment reaction include, nausea/vomiting, dizziness/vertigo, visual disturbances, somnolence, ataxia, pruritus/rash, pharyngitis, headache, rhinitis, diarrhea, fever, asthenia, insomnia, tremor, abdominal pain, cough, accidental injury, constipation, dysmenorrhea, incoordination, anxiety, seizures, irritability, anorexia, xerostomia, and photosensitivity. Serious reactions include: Rash, severe; Dunaway Micah syndrome; toxic epidermal necrosis; injury edema, hypersensitivity reactions. Including fatal, multiple organ failure to safe fatal, rash with eosinophilia systemic symptoms, DIC, neutropenia, leukopenia, thrombocytopenia, pancytopenia, aplastic anemia, hemolytic anemia, i pancreatitis, hepatic failure, rhabdomyolysis, worsening of suicidal ideation, worsening of depression, cleft lip/palate [first trimester use] DO not Change Cosmetic, perfumes or soap for next 4 weeks. The patient was advice to take lamotrigine as prescribed the patient was instructed not to deviate from the prescription dosages. Stop lamotrigine is the first sign of rash. Patient was insisted to inform office if any of the serious side effect develops. Cannabis use Recommend decrease/stop cannabis use as it can negatively impact mood, motivation, anxiety, sleep, focus/concentratio n/memory (vigilance, elasticity, processing and attention); can also contribute to development of psychosis. http_s://www.nimh. nih.gov/health/top ics/mental-health- medications http_s://www.ju. org/Wfcvd-Kwgyml-N llness/Treatments/ Cnhuhl-Pnyxaf-Cntj cations Recommend decrease/stop cannabis use as it may be negatively impacting mood, motivation, anxiety, sleep, focus; can also contribute to development of psychosis Cannabis/marijuana information: http_s://dimitry.nih. gov/publications/d rugfacts/cannabis- marijuana http_s://www.Zubican/cannabi s-vks-gdkrktgs-mar ijuana-adhd/ http_s://www.ju. org/Nizwt-Ebnafu-I llness/Mental-Heal th-Conditions http_s://[employer]las Cloudcom/depression /bca-xjgmtiqvp-jhd niutn-fb-ovripveai n#treatments http__s://www.nimh .nih.gov/health/to pics/mental-health -medications http__s://www.ju .org/About-Mental- Illness/Treatments /Phzpph-Xbdieb-Pri ications educated on all medications, benefits, side effects and risk, and educated on depression, anxiety, and ADHD, mood d/o and educated on compliance of medications, metabolic and movement d/o education appointment is, continue therapy discussion with patient about course of treatment and patient instructions. education on serotonin syndrome SSRI side effects discussed including but not limited to, gastric upset, nausea, vomiting, diarrhea and/or constipation, weight changes, sexual side effects including loss of libido, increased suicidal thoughts/behaviors in children and young adults, and serotonin syndrome. Second generation antipsychotics (SGAs) have metabolic syndrome issues with weight gain, increase in prolactin, increased waist circumference, increased lipids, and increased glucose. Thus routine monitoring of weight, metabolic labs, etc. is indicated. A general rank ordering of antipsychotics that have the greatest to the least risk of metabolic effects is olanzapine, quetiapine, risperidone, ziprasidone, and aripiprazole. However, weight gain can occur with all of these drugs and considerable variability exists among patients receiving the same drug regarding the risk of metabolic effects. Anti-psychotic agents not only increase the risk of metabolic disorder, they also increase the risk of CVA, akathisia, and movement disorders including EPS or tardive dyskinesia (more common with first generation antipsychotics) and more. educated on importance Therapy and CBT - patient and agreed to therapy obtain labs PCP 2. Generalized anxiety disorder - Vistaril 50 mg twice a day for anxiety and panic as needed - educated on rx (Patient does not tolerate increase dose Wellbutrin) education on all medication refer to therapy and IOP patient will call and check on coverage and cost with a therapy group educated on all medications, benefits, side effects and risk, and educated on depression, anxiety, and ADHD, mood d/o and educated on compliance of medications, metabolic and movement d/o education appointment is, continue therapy discussion with patient about course of treatment and patient instructions. education on serotonin syndrome SSRI side effects discussed including but not limited to, gastric upset, nausea, vomiting, diarrhea and/or constipation, weight changes, sexual side effects including loss of libido, increased suicidal thoughts/behaviors in children and young adults, and serotonin syndrome. Second generation antipsychotics (SGAs) have metabolic syndrome issues with weight gain, increase in prolactin, increased waist circumference, increased lipids, and increased glucose. Thus routine monitoring of weight, metabolic labs, etc. is indicated. A general rank ordering of antipsychotics that have the greatest to the least risk of metabolic effects is olanzapine, quetiapine, risperidone, ziprasidone, and aripiprazole. However, weight gain can occur with all of these drugs and considerable variability exists among patients receiving the same drug regarding the risk of metabolic effects. Anti-psychotic agents not only increase the risk of metabolic disorder, they also increase the risk of CVA, akathisia, and movement disorders including EPS or tardive dyskinesia (more common with first generation antipsychotics) and more. hydroxyzine HCl 50 mg tablet - 3. Insomnia disorder related to another mental disorder - Melatonin 10 mg at night OTC limit caffeine therapy CBT will return to therapy increase Trazodone 100 mg at night- educated on rx monitor B/P- see PCP on rx STAY HYDRATED monitor sleep and hygiene and memory RLSsleep apnea -has cpap not working - not using bipap may plan to have implant- 4. Attention deficit hyperactivity disorder, combined type -ANNA -2 REVIEWED no control substance r/t cannabis use therapy discuss 5. Tobacco use discuss TMS for smoking cessation- pamplet given- patient will consider Smoking Education Do not smoke. Nicotine and other chemicals in cigarettes and cigars can cause lung damage. Ask your healthcare provider for information if you currently smoke and need help to quit. E-cigarettes or smokeless tobacco still contain nicotine. Talk to your healthcare provider before you use these products. education on decrease to stopping nicotine products and stop smoking hotline given Quit - Yes [place] Tobacco Quitline Call a Smoking Quitline The National Cancer [place]'s Smoking Quitline, (4-967-26F-QUIT) Smokefree.gov, which connects you with your State's Quitline, (2-339-UUPZODL) Veterans Smoking Quitline, (0-897-AVEOOVO) Discussion Notes refer to therapy obtain labs PCP TMS for smoking cessation 06/24/2024 Bipolar disorder, current episode depressed, mild (ICD-10 - F31.31) Bipolar Disorder: Care Instructions material was published, Learning About Movement Disorders From Antipsychotic Medicines material was published, Learning About Mood Disorders material was published, Learning About How to Get Help During a Mental Health Crisis material was published 1. Bipolar disorder, most recent episode depression - Vraylar 4.5 mg daily for Bipolar - no s/e helping depression no teresita mood stabilization and teresita- educated on rx monitor B/P discuss and educated on Lamotrigine for depression Lamotrigne 25 mg daily - reported helping monitor for GI issues Lamotrigine lamotrigine has a serious rashes requiring hospitalization and discontinue treatment including Clemente Micah syndrome rare case of toxic epidermal necrolysis and cache related deaths. Incidence with adjunct of epilepsy treatment 0.8% in 2 to 16 years old and 0.3% in adults, bipolar and other mood disorders incidence 0.8% this initial monotherapy and 0.13% as adjunctive treatment. Other risk factor may include concomitant use of valproate acid derivative or exceeding initial lamotrigine does or does as clinician recommendation; most life-threatening rash of occurring first 2 to 8 week of treatment with isolated cases after prolonged treatment; though benign may occur, discontinue treatment at first sign of rash unless clearly not a drug related; TC treatment may not prevent trash from becoming life-threatening or permanently disabling or disfiguring. Comment reaction include, nausea/vomiting, dizziness/vertigo, visual disturbances, somnolence, ataxia, pruritus/rash, pharyngitis, headache, rhinitis, diarrhea, fever, asthenia, insomnia, tremor, abdominal pain, cough, accidental injury, constipation, dysmenorrhea, incoordination, anxiety, seizures, irritability, anorexia, xerostomia, and photosensitivity. Serious reactions include: Rash, severe; Dunaway Micah syndrome; toxic epidermal necrosis; injury edema, hypersensitivity reactions. Including fatal, multiple organ failure to safe fatal, rash with eosinophilia systemic symptoms, DIC, neutropenia, leukopenia, thrombocytopenia, pancytopenia, aplastic anemia, hemolytic anemia, i pancreatitis, hepatic failure, rhabdomyolysis, worsening of suicidal ideation, worsening of depression, cleft lip/palate [first trimester use] DO not Change Cosmetic, perfumes or soap for next 4 weeks. The patient was advice to take lamotrigine as prescribed the patient was instructed not to deviate from the prescription dosages. Stop lamotrigine is the first sign of rash. Patient was insisted to inform office if any of the serious side effect develops. Cannabis use Recommend decrease/stop cannabis use as it can negatively impact mood, motivation, anxiety, sleep, focus/concentratio n/memory (vigilance, elasticity, processing and attention); can also contribute to development of psychosis. http_s://www.nimh. nih.gov/health/top ics/mental-health- medications http_s://www.ju. org/Rgvgk-Zrjezb-F llness/Treatments/ Rhklbb-Asyufj-Ylib cations Recommend decrease/stop cannabis use as it may be negatively impacting mood, motivation, anxiety, sleep, focus; can also contribute to development of psychosis Cannabis/marijuana information: http_s://dimitry.nih. gov/publications/d rugfacts/cannabis- marijuana http_s://www.Zubican/cannabi a-qge-faneqrac-mar ijuana-adhd/ http_s://www.ju. org/Lsliu-Hgolqu-V llness/Mental-Heal th-Conditions http_s://psychcent [employer]ION.com/depression /vvn-whgtgjpsi-dmu cgfrp-pd-gwpwjltvv n#treatments http__s://www.nimh .nih.gov/health/to pics/mental-health -medications http__s://www.ju .org/About-Mental- Illness/Treatments /Hozlku-Ijbygy-Ouo ications educated on all medications, benefits, side effects and risk, and educated on depression, anxiety, and ADHD, mood d/o and educated on compliance of medications, metabolic and movement d/o education appointment is, continue therapy discussion with patient about course of treatment and patient instructions. education on serotonin syndrome SSRI side effects discussed including but not limited to, gastric upset, nausea, vomiting, diarrhea and/or constipation, weight changes, sexual side effects including loss of libido, increased suicidal thoughts/behaviors in children and young adults, and serotonin syndrome. Second generation antipsychotics (SGAs) have metabolic syndrome issues with weight gain, increase in prolactin, increased waist circumference, increased lipids, and increased glucose. Thus routine monitoring of weight, metabolic labs, etc. is indicated. A general rank ordering of antipsychotics that have the greatest to the least risk of metabolic effects is olanzapine, quetiapine, risperidone, ziprasidone, and aripiprazole. However, weight gain can occur with all of these drugs and considerable variability exists among patients receiving the same drug regarding the risk of metabolic effects. Anti-psychotic agents not only increase the risk of metabolic disorder, they also increase the risk of CVA, akathisia, and movement disorders including EPS or tardive dyskinesia (more common with first generation antipsychotics) and more. educated on importance Therapy and CBT - patient and agreed to therapy obtain labs PCP 2. Generalized anxiety disorder - Vistaril 50 mg twice a day for anxiety and panic as needed - educated on rx (Patient does not tolerate increase dose Wellbutrin) education on all medication refer to therapy and IOP patient will call and check on coverage and cost with a therapy group educated on all medications, benefits, side effects and risk, and educated on depression, anxiety, and ADHD, mood d/o and educated on compliance of medications, metabolic and movement d/o education appointment is, continue therapy discussion with patient about course of treatment and patient instructions. education on serotonin syndrome SSRI side effects discussed including but not limited to, gastric upset, nausea, vomiting, diarrhea and/or constipation, weight changes, sexual side effects including loss of libido, increased suicidal thoughts/behaviors in children and young adults, and serotonin syndrome. Second generation antipsychotics (SGAs) have metabolic syndrome issues with weight gain, increase in prolactin, increased waist circumference, increased lipids, and increased glucose. Thus routine monitoring of weight, metabolic labs, etc. is indicated. A general rank ordering of antipsychotics that have the greatest to the least risk of metabolic effects is olanzapine, quetiapine, risperidone, ziprasidone, and aripiprazole. However, weight gain can occur with all of these drugs and considerable variability exists among patients receiving the same drug regarding the risk of metabolic effects. Anti-psychotic agents not only increase the risk of metabolic disorder, they also increase the risk of CVA, akathisia, and movement disorders including EPS or tardive dyskinesia (more common with first generation antipsychotics) and more. hydroxyzine HCl 50 mg tablet - 3. Insomnia disorder related to another mental disorder - Melatonin 10 mg at night OTC limit caffeine therapy CBT will return to therapy increase Trazodone 100 mg at night- educated on rx monitor B/P- see PCP on rx STAY HYDRATED monitor sleep and hygiene and memory RLSsleep apnea -has cpap not working - not using bipap may plan to have implant- 4. Attention deficit hyperactivity disorder, combined type -ANNA -2 REVIEWED no control substance r/t cannabis use therapy discuss 5. Tobacco use discuss TMS for smoking cessation- pamplet given- patient will consider Smoking Education Do not smoke. Nicotine and other chemicals in cigarettes and cigars can cause lung damage. Ask your healthcare provider for information if you currently smoke and need help to quit. E-cigarettes or smokeless tobacco still contain nicotine. Talk to your healthcare provider before you use these products. education on decrease to stopping nicotine products and stop smoking hotline given -Quit - Yes [place] Tobacco Quitline Call a Smoking Quitline The National Cancer [place]'s Smoking Quitline, (6-272-42C-QUIT) Smokefree.gov, which connects you with your State's Quitline, (0-128-FPQFPIH) Veterans Smoking Quitline, (0-515-HKZDFKZ) Discussion Notes refer to therapy obtain labs PCP TMS for smoking cessation 03/24/2024 Post-traumatic stress disorder, chronic (ICD-10 - F43.12) Post-Traumatic Stress Disorder (PTSD): Care Instructions material was published 1. Bipolar disorder, most recent episode depression - Vraylar 4.5 mg daily for Bipolar - mood stabilization and teresita- educated on rx monitor B/P discuss and educated on Lamotrigine for depression Add Lamotrigne 25 mg daily - monitor for GI issues Lamotrigine lamotrigine has a serious rashes requiring hospitalization and discontinue treatment including Clemente Micah syndrome rare case of toxic epidermal necrolysis and cache related deaths. Incidence with adjunct of epilepsy treatment 0.8% in 2 to 16 years old and 0.3% in adults, bipolar and other mood disorders incidence 0.8% this initial monotherapy and 0.13% as adjunctive treatment. Other risk factor may include concomitant use of valproate acid derivative or exceeding initial lamotrigine does or does as clinician recommendation; most life-threatening rash of occurring first 2 to 8 week of treatment with isolated cases after prolonged treatment; though benign may occur, discontinue treatment at first sign of rash unless clearly not a drug related; TC treatment may not prevent trash from becoming life-threatening or permanently disabling or disfiguring. Comment reaction include, nausea/vomiting, dizziness/vertigo, visual disturbances, somnolence, ataxia, pruritus/rash, pharyngitis, headache, rhinitis, diarrhea, fever, asthenia, insomnia, tremor, abdominal pain, cough, accidental injury, constipation, dysmenorrhea, incoordination, anxiety, seizures, irritability, anorexia, xerostomia, and photosensitivity. Serious reactions include: Rash, severe; Dunaway Micah syndrome; toxic epidermal necrosis; injury edema, hypersensitivity reactions. Including fatal, multiple organ failure to safe fatal, rash with eosinophilia systemic symptoms, DIC, neutropenia, leukopenia, thrombocytopenia, pancytopenia, aplastic anemia, hemolytic anemia, i pancreatitis, hepatic failure, rhabdomyolysis, worsening of suicidal ideation, worsening of depression, cleft lip/palate [first trimester use] DO not Change Cosmetic, perfumes or soap for next 4 weeks. The patient was advice to take lamotrigine as prescribed the patient was instructed not to deviate from the prescription dosages. Stop lamotrigine is the first sign of rash. Patient was insisted to inform office if any of the serious side effect develops. Cannabis use Recommend decrease/stop cannabis use as it can negatively impact mood, motivation, anxiety, sleep, focus/concentratio n/memory (vigilance, elasticity, processing and attention); can also contribute to development of psychosis. http_s://www.nimh. nih.gov/health/top ics/mental-health- medications http_s://www.ju. org/Rdpvr-Urmqds-A llness/Treatments/ Tfehsn-Ieqcyq-Dqer cations Recommend decrease/stop cannabis use as it may be negatively impacting mood, motivation, anxiety, sleep, focus; can also contribute to development of psychosis Cannabis/marijuana information: http_s://dimitry.nih. gov/publications/d rugfacts/cannabis- marijuana http_s://www.Zubican/cannabi z-nvt-ybpklikt-mar ijuana-adhd/ http_s://www.ju. org/Kkocc-Fdprge-Q llness/Mental-Heal th-Conditions http_s://Browsercast.com.com/depression /twx-kkhccenfz-ryv ckjnq-wj-yxeoyooul n#treatments http__s://www.nimh .nih.gov/health/to pics/mental-health -medications http__s://www.ju .org/About-Mental- Illness/Treatments /Fplqfj-Otkrld-Rvu ications educated on all medications, benefits, side effects and risk, and educated on depression, anxiety, and ADHD, mood d/o and educated on compliance of medications, metabolic and movement d/o education appointment is, continue therapy discussion with patient about course of treatment and patient instructions. education on serotonin syndrome SSRI side effects discussed including but not limited to, gastric upset, nausea, vomiting, diarrhea and/or constipation, weight changes, sexual side effects including loss of libido, increased suicidal thoughts/behaviors in children and young adults, and serotonin syndrome. Second generation antipsychotics (SGAs) have metabolic syndrome issues with weight gain, increase in prolactin, increased waist circumference, increased lipids, and increased glucose. Thus routine monitoring of weight, metabolic labs, etc. is indicated. A general rank ordering of antipsychotics that have the greatest to the least risk of metabolic effects is olanzapine, quetiapine, risperidone, ziprasidone, and aripiprazole. However, weight gain can occur with all of these drugs and considerable variability exists among patients receiving the same drug regarding the risk of metabolic effects. Anti-psychotic agents not only increase the risk of metabolic disorder, they also increase the risk of CVA, akathisia, and movement disorders including EPS or tardive dyskinesia (more common with first generation antipsychotics) and more. educated on importance Therapy and CBT - patient and agreed to therapy obtain labs PCP 2. Generalized anxiety disorder - educated to take Vistaril 50 mg three times a day for anxiety and panic as needed - educated on rx (Patient does not tolerate increase dose Wellbutrin) education on all medication refer to therapy and IOP patient will call and check on coverage and cost with a therapy group educated on all medications, benefits, side effects and risk, and educated on depression, anxiety, and ADHD, mood d/o and educated on compliance of medications, metabolic and movement d/o education appointment is, continue therapy discussion with patient about course of treatment and patient instructions. education on serotonin syndrome SSRI side effects discussed including but not limited to, gastric upset, nausea, vomiting, diarrhea and/or constipation, weight changes, sexual side effects including loss of libido, increased suicidal thoughts/behaviors in children and young adults, and serotonin syndrome. Second generation antipsychotics (SGAs) have metabolic syndrome issues with weight gain, increase in prolactin, increased waist circumference, increased lipids, and increased glucose. Thus routine monitoring of weight, metabolic labs, etc. is indicated. A general rank ordering of antipsychotics that have the greatest to the least risk of metabolic effects is olanzapine, quetiapine, risperidone, ziprasidone, and aripiprazole. However, weight gain can occur with all of these drugs and considerable variability exists among patients receiving the same drug regarding the risk of metabolic effects. Anti-psychotic agents not only increase the risk of metabolic disorder, they also increase the risk of CVA, akathisia, and movement disorders including EPS or tardive dyskinesia (more common with first generation antipsychotics) and more. hydroxyzine HCl 50 mg tablet - 3. Insomnia disorder related to another mental disorder - Melatonin 10 mg at night OTC limit caffeine therapy CBT will return to therapy Trazodone 50 mg at night- educated on rx monitor B/P STAY HYDRATED monitor sleep and hygiene and memory RLSsleep apnea -has cpap not working - not using bipap plans to have implant- 4. Attention deficit hyperactivity disorder, combined type -ANNA -2 REVIEWED no control substance r/t cannabis usetherapy 5. 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 Bipolar disorder, most recent episode depression - Vraylar 4.5 mg daily for Bipolar - improved teresita mood stabilization and teresita- educated on rx monitor B/P educated on all medications, benefits, side effects and risk, and educated on depression, anxiety, and ADHD, mood d/o and educated on compliance of medications, metabolic and movement d/o education appointment is, continue therapy discussion with patient about course of treatment and patient instructions. education on serotonin syndrome SSRI side effects discussed including but not limited to, gastric upset, nausea, vomiting, diarrhea and/or constipation, weight changes, sexual side effects including loss of libido, increased suicidal thoughts/behaviors in children and young adults, and serotonin syndrome. Second generation antipsychotics (SGAs) have metabolic syndrome issues with weight gain, increase in prolactin, increased waist circumference, increased lipids, and increased glucose. Thus routine monitoring of weight, metabolic labs, etc. is indicated. A general rank ordering of antipsychotics that have the greatest to the least risk of metabolic effects is olanzapine, quetiapine, risperidone, ziprasidone, and aripiprazole. However, weight gain can occur with all of these drugs and considerable variability exists among patients receiving the same drug regarding the risk of metabolic effects. Anti-psychotic agents not only increase the risk of metabolic disorder, they also increase the risk of CVA, akathisia, and movement disorders including EPS or tardive dyskinesia (more common with first generation antipsychotics) and more. educated on importance Therapy and CBT - patient and agreed to therapy obtain labs PCP 2. Generalized anxiety disorder - educated to take Vistaril 50 mg three times a day for anxiety and panic as needed - educated on rx (Patient does not tolerate increase dose Wellbutrin) education on all medication refer to therapy and IOP patient will call and check on coverage and cost with a therapy group educated on all medications, benefits, side effects and risk, and educated on depression, anxiety, and ADHD, mood d/o and educated on compliance of medications, metabolic and movement d/o education appointment is, continue therapy discussion with patient about course of treatment and patient instructions. education on serotonin syndrome SSRI side effects discussed including but not limited to, gastric upset, nausea, vomiting, diarrhea and/or constipation, weight changes, sexual side effects including loss of libido, increased suicidal thoughts/behaviors in children and young adults, and serotonin syndrome. Second generation antipsychotics (SGAs) have metabolic syndrome issues with weight gain, increase in prolactin, increased waist circumference, increased lipids, and increased glucose. Thus routine monitoring of weight, metabolic labs, etc. is indicated. A general rank ordering of antipsychotics that have the greatest to the least risk of metabolic effects is olanzapine, quetiapine, risperidone, ziprasidone, and aripiprazole. However, weight gain can occur with all of these drugs and considerable variability exists among patients receiving the same drug regarding the risk of metabolic effects. Anti-psychotic agents not only increase the risk of metabolic disorder, they also increase the risk of CVA, akathisia, and movement disorders including EPS or tardive dyskinesia (more common with first generation antipsychotics) and more. hydroxyzine HCl 50 mg tablet - 3. Insomnia disorder related to another mental disorder - Melatonin 10 mg at night OTC limit caffeine therapy CBT will return to therapy Trazodone 50 mg at night- educated to decrease to 50 mg at night- no refill needed monitor B/P STAY HYDRATED monitor sleep and hygiene and memory RLSsleep apnea -has cpap not working - bipap plans to have implant 4. Attention deficit hyperactivity disorder, combined type -ANNA -2 REVIEWED no control substance r/t cannabis usetherapy 5. Long-term drug therapy - Discussion Notes refer to therapy obtain labs PCP 06/24/2024 Generalized anxiety disorder (ICD-10 - F41.1) Learning About Generalized Anxiety Disorder material was published, Generalized Anxiety Disorder: Care Instructions material was published, Learning About Anxiety Disorders material was published 1. Bipolar disorder, most recent episode depression - Vraylar 4.5 mg daily for Bipolar - no s/e helping depression no teresita mood stabilization and teresita- educated on rx monitor B/P discuss and educated on Lamotrigine for depression Lamotrigne 25 mg daily - reported helping monitor for GI issues Lamotrigine lamotrigine has a serious rashes requiring hospitalization and discontinue treatment including Clemente Micah syndrome rare case of toxic epidermal necrolysis and cache related deaths. Incidence with adjunct of epilepsy treatment 0.8% in 2 to 16 years old and 0.3% in adults, bipolar and other mood disorders incidence 0.8% this initial monotherapy and 0.13% as adjunctive treatment. Other risk factor may include concomitant use of valproate acid derivative or exceeding initial lamotrigine does or does as clinician recommendation; most life-threatening rash of occurring first 2 to 8 week of treatment with isolated cases after prolonged treatment; though benign may occur, discontinue treatment at first sign of rash unless clearly not a drug related; TC treatment may not prevent trash from becoming life-threatening or permanently disabling or disfiguring. Comment reaction include, nausea/vomiting, dizziness/vertigo, visual disturbances, somnolence, ataxia, pruritus/rash, pharyngitis, headache, rhinitis, diarrhea, fever, asthenia, insomnia, tremor, abdominal pain, cough, accidental injury, constipation, dysmenorrhea, incoordination, anxiety, seizures, irritability, anorexia, xerostomia, and photosensitivity. Serious reactions include: Rash, severe; Dunaway Micah syndrome; toxic epidermal necrosis; injury edema, hypersensitivity reactions. Including fatal, multiple organ failure to safe fatal, rash with eosinophilia systemic symptoms, DIC, neutropenia, leukopenia, thrombocytopenia, pancytopenia, aplastic anemia, hemolytic anemia, i pancreatitis, hepatic failure, rhabdomyolysis, worsening of suicidal ideation, worsening of depression, cleft lip/palate [first trimester use] DO not Change Cosmetic, perfumes or soap for next 4 weeks. The patient was advice to take lamotrigine as prescribed the patient was instructed not to deviate from the prescription dosages. Stop lamotrigine is the first sign of rash. Patient was insisted to inform office if any of the serious side effect develops. Cannabis use Recommend decrease/stop cannabis use as it can negatively impact mood, motivation, anxiety, sleep, focus/concentratio n/memory (vigilance, elasticity, processing and attention); can also contribute to development of psychosis. http_s://www.nimh. nih.gov/health/top ics/mental-health- medications http_s://www.ju. org/Lqmlc-Tzpwdm-A llness/Treatments/ Xwcwtt-Icjxfz-Yjdu cations Recommend decrease/stop cannabis use as it may be negatively impacting mood, motivation, anxiety, sleep, focus; can also contribute to development of psychosis Cannabis/marijuana information: http_s://dimitry.nih. gov/publications/d rugfacts/cannabis- marijuana http_s://www.Zubican/cannabi e-lon-mgijxezl-mar ijuana-adhd/ http_s://www.ju. org/Rinlh-Wiqtfu-K llness/Mental-Heal th-Conditions http_s://Browsercast.com.com/depression /odm-rdhxdhvis-bpy fjfam-rv-utghwixjh n#treatments http__s://www.nimh .nih.gov/health/to pics/mental-health -medications http__s://www.ju .org/About-Mental- Illness/Treatments /Spzuzb-Ifygbt-Azg ications educated on all medications, benefits, side effects and risk, and educated on depression, anxiety, and ADHD, mood d/o and educated on compliance of medications, metabolic and movement d/o education appointment is, continue therapy discussion with patient about course of treatment and patient instructions. education on serotonin syndrome SSRI side effects discussed including but not limited to, gastric upset, nausea, vomiting, diarrhea and/or constipation, weight changes, sexual side effects including loss of libido, increased suicidal thoughts/behaviors in children and young adults, and serotonin syndrome. Second generation antipsychotics (SGAs) have metabolic syndrome issues with weight gain, increase in prolactin, increased waist circumference, increased lipids, and increased glucose. Thus routine monitoring of weight, metabolic labs, etc. is indicated. A general rank ordering of antipsychotics that have the greatest to the least risk of metabolic effects is olanzapine, quetiapine, risperidone, ziprasidone, and aripiprazole. However, weight gain can occur with all of these drugs and considerable variability exists among patients receiving the same drug regarding the risk of metabolic effects. Anti-psychotic agents not only increase the risk of metabolic disorder, they also increase the risk of CVA, akathisia, and movement disorders including EPS or tardive dyskinesia (more common with first generation antipsychotics) and more. educated on importance Therapy and CBT - patient and agreed to therapy obtain labs PCP 2. Generalized anxiety disorder - Vistaril 50 mg twice a day for anxiety and panic as needed - educated on rx (Patient does not tolerate increase dose Wellbutrin) education on all medication refer to therapy and IOP patient will call and check on coverage and cost with a therapy group educated on all medications, benefits, side effects and risk, and educated on depression, anxiety, and ADHD, mood d/o and educated on compliance of medications, metabolic and movement d/o education appointment is, continue therapy discussion with patient about course of treatment and patient instructions. education on serotonin syndrome SSRI side effects discussed including but not limited to, gastric upset, nausea, vomiting, diarrhea and/or constipation, weight changes, sexual side effects including loss of libido, increased suicidal thoughts/behaviors in children and young adults, and serotonin syndrome. Second generation antipsychotics (SGAs) have metabolic syndrome issues with weight gain, increase in prolactin, increased waist circumference, increased lipids, and increased glucose. Thus routine monitoring of weight, metabolic labs, etc. is indicated. A general rank ordering of antipsychotics that have the greatest to the least risk of metabolic effects is olanzapine, quetiapine, risperidone, ziprasidone, and aripiprazole. However, weight gain can occur with all of these drugs and considerable variability exists among patients receiving the same drug regarding the risk of metabolic effects. Anti-psychotic agents not only increase the risk of metabolic disorder, they also increase the risk of CVA, akathisia, and movement disorders including EPS or tardive dyskinesia (more common with first generation antipsychotics) and more. hydroxyzine HCl 50 mg tablet - 3. Insomnia disorder related to another mental disorder - Melatonin 10 mg at night OTC limit caffeine therapy CBT will return to therapy increase Trazodone 100 mg at night- educated on rx monitor B/P- see PCP on rx STAY HYDRATED monitor sleep and hygiene and memory RLSsleep apnea -has cpap not working - not using bipap may plan to have implant- 4. Attention deficit hyperactivity disorder, combined type -ANNA -2 REVIEWED no control substance r/t cannabis use therapy discuss 5. Tobacco use discuss TMS for smoking cessation- pamplet given- patient will consider Smoking Education Do not smoke. Nicotine and other chemicals in cigarettes and cigars can cause lung damage. Ask your healthcare provider for information if you currently smoke and need help to quit. E-cigarettes or smokeless tobacco still contain nicotine. Talk to your healthcare provider before you use these products. 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 Bipolar disorder, most recent episode depression - Vraylar 4.5 mg daily for Bipolar - mood stabilization and teresita- educated on rx monitor B/P discuss and educated on Lamotrigine for depression Add Lamotrigne 25 mg daily - monitor for GI issues Lamotrigine lamotrigine has a serious rashes requiring hospitalization and discontinue treatment including Clemente Micah syndrome rare case of toxic epidermal necrolysis and cache related deaths. Incidence with adjunct of epilepsy treatment 0.8% in 2 to 16 years old and 0.3% in adults, bipolar and other mood disorders incidence 0.8% this initial monotherapy and 0.13% as adjunctive treatment. Other risk factor may include concomitant use of valproate acid derivative or exceeding initial lamotrigine does or does as clinician recommendation; most life-threatening rash of occurring first 2 to 8 week of treatment with isolated cases after prolonged treatment; though benign may occur, discontinue treatment at first sign of rash unless clearly not a drug related; TC treatment may not prevent trash from becoming life-threatening or permanently disabling or disfiguring. Comment reaction include, nausea/vomiting, dizziness/vertigo, visual disturbances, somnolence, ataxia, pruritus/rash, pharyngitis, headache, rhinitis, diarrhea, fever, asthenia, insomnia, tremor, abdominal pain, cough, accidental injury, constipation, dysmenorrhea, incoordination, anxiety, seizures, irritability, anorexia, xerostomia, and photosensitivity. Serious reactions include: Rash, severe; Dunaway Micah syndrome; toxic epidermal necrosis; injury edema, hypersensitivity reactions. Including fatal, multiple organ failure to safe fatal, rash with eosinophilia systemic symptoms, DIC, neutropenia, leukopenia, thrombocytopenia, pancytopenia, aplastic anemia, hemolytic anemia, i pancreatitis, hepatic failure, rhabdomyolysis, worsening of suicidal ideation, worsening of depression, cleft lip/palate [first trimester use] DO not Change Cosmetic, perfumes or soap for next 4 weeks. The patient was advice to take lamotrigine as prescribed the patient was instructed not to deviate from the prescription dosages. Stop lamotrigine is the first sign of rash. Patient was insisted to inform office if any of the serious side effect develops. Cannabis use Recommend decrease/stop cannabis use as it can negatively impact mood, motivation, anxiety, sleep, focus/concentratio n/memory (vigilance, elasticity, processing and attention); can also contribute to development of psychosis. http_s://www.nimh. nih.gov/health/top ics/mental-health- medications http_s://www.ju. org/Yvtdg-Eiglcg-P llness/Treatments/ Twwkiw-Gmvoth-Sagz cations Recommend decrease/stop cannabis use as it may be negatively impacting mood, motivation, anxiety, sleep, focus; can also contribute to development of psychosis Cannabis/marijuana information: http_s://dimitry.nih. gov/publications/d rugfacts/cannabis- marijuana http_s://www.Zubican/cannabi c-iso-xfunddsz-mar ijuana-adhd/ http_s://www.ju. org/Bhion-Puofqc-D llness/Mental-Heal th-Conditions http_s://Minitrade/depression /fgb-dpsrzowny-pfr dyzef-kj-nxmstxxcu n#treatments http__s://www.nimh .nih.gov/health/to pics/mental-health -medications http__s://www.ju .org/About-Mental- Illness/Treatments /Tjaplo-Nxmyon-Pey ications educated on all medications, benefits, side effects and risk, and educated on depression, anxiety, and ADHD, mood d/o and educated on compliance of medications, metabolic and movement d/o education appointment is, continue therapy discussion with patient about course of treatment and patient instructions. education on serotonin syndrome SSRI side effects discussed including but not limited to, gastric upset, nausea, vomiting, diarrhea and/or constipation, weight changes, sexual side effects including loss of libido, increased suicidal thoughts/behaviors in children and young adults, and serotonin syndrome. Second generation antipsychotics (SGAs) have metabolic syndrome issues with weight gain, increase in prolactin, increased waist circumference, increased lipids, and increased glucose. Thus routine monitoring of weight, metabolic labs, etc. is indicated. A general rank ordering of antipsychotics that have the greatest to the least risk of metabolic effects is olanzapine, quetiapine, risperidone, ziprasidone, and aripiprazole. However, weight gain can occur with all of these drugs and considerable variability exists among patients receiving the same drug regarding the risk of metabolic effects. Anti-psychotic agents not only increase the risk of metabolic disorder, they also increase the risk of CVA, akathisia, and movement disorders including EPS or tardive dyskinesia (more common with first generation antipsychotics) and more. educated on importance Therapy and CBT - patient and agreed to therapy obtain labs PCP 2. Generalized anxiety disorder - educated to take Vistaril 50 mg three times a day for anxiety and panic as needed - educated on rx (Patient does not tolerate increase dose Wellbutrin) education on all medication refer to therapy and IOP patient will call and check on coverage and cost with a therapy group educated on all medications, benefits, side effects and risk, and educated on depression, anxiety, and ADHD, mood d/o and educated on compliance of medications, metabolic and movement d/o education appointment is, continue therapy discussion with patient about course of treatment and patient instructions. education on serotonin syndrome SSRI side effects discussed including but not limited to, gastric upset, nausea, vomiting, diarrhea and/or constipation, weight changes, sexual side effects including loss of libido, increased suicidal thoughts/behaviors in children and young adults, and serotonin syndrome. Second generation antipsychotics (SGAs) have metabolic syndrome issues with weight gain, increase in prolactin, increased waist circumference, increased lipids, and increased glucose. Thus routine monitoring of weight, metabolic labs, etc. is indicated. A general rank ordering of antipsychotics that have the greatest to the least risk of metabolic effects is olanzapine, quetiapine, risperidone, ziprasidone, and aripiprazole. However, weight gain can occur with all of these drugs and considerable variability exists among patients receiving the same drug regarding the risk of metabolic effects. Anti-psychotic agents not only increase the risk of metabolic disorder, they also increase the risk of CVA, akathisia, and movement disorders including EPS or tardive dyskinesia (more common with first generation antipsychotics) and more. hydroxyzine HCl 50 mg tablet - 3. Insomnia disorder related to another mental disorder - Melatonin 10 mg at night OTC limit caffeine therapy CBT will return to therapy Trazodone 50 mg at night- educated on rx monitor B/P STAY HYDRATED monitor sleep and hygiene and memory RLSsleep apnea -has cpap not working - not using bipap plans to have implant- 4. Attention deficit hyperactivity disorder, combined type -ANNA -2 REVIEWED no control substance r/t cannabis usetherapy 5. Long-term drug therapy - Discussion Notes refer to therapy obtain labs PCP 11/13/2023 Cannabis dependence, uncomplicated (ICD-10 - F12.20) Learning About Cannabis Use Disorder material was published, Learning About Substance Use Disorder material was published, Substance Use Disorder: Care Instructions material was published, Marijuana Use: Care Instructions material was published, Codependency: Care Instructions material was published 1. Bipolar disorder, most recent episode depression - Vraylar 4.5 mg daily for Bipolar - improved teresita mood stabilization and teresita- educated on rx monitor B/P educated on all medications, benefits, side effects and risk, and educated on depression, anxiety, and ADHD, mood d/o and educated on compliance of medications, metabolic and movement d/o education appointment is, continue therapy discussion with patient about course of treatment and patient instructions. education on serotonin syndrome SSRI side effects discussed including but not limited to, gastric upset, nausea, vomiting, diarrhea and/or constipation, weight changes, sexual side effects including loss of libido, increased suicidal thoughts/behaviors in children and young adults, and serotonin syndrome. Second generation antipsychotics (SGAs) have metabolic syndrome issues with weight gain, increase in prolactin, increased waist circumference, increased lipids, and increased glucose. Thus routine monitoring of weight, metabolic labs, etc. is indicated. A general rank ordering of antipsychotics that have the greatest to the least risk of metabolic effects is olanzapine, quetiapine, risperidone, ziprasidone, and aripiprazole. However, weight gain can occur with all of these drugs and considerable variability exists among patients receiving the same drug regarding the risk of metabolic effects. Anti-psychotic agents not only increase the risk of metabolic disorder, they also increase the risk of CVA, akathisia, and movement disorders including EPS or tardive dyskinesia (more common with first generation antipsychotics) and more. educated on importance Therapy and CBT - patient and agreed to therapy obtain labs PCP 2. Generalized anxiety disorder - educated to take Vistaril 50 mg three times a day for anxiety and panic as needed - educated on rx (Patient does not tolerate increase dose Wellbutrin) education on all medication refer to therapy and IOP patient will call and check on coverage and cost with a therapy group educated on all medications, benefits, side effects and risk, and educated on depression, anxiety, and ADHD, mood d/o and educated on compliance of medications, metabolic and movement d/o education appointment is, continue therapy discussion with patient about course of treatment and patient instructions. education on serotonin syndrome SSRI side effects discussed including but not limited to, gastric upset, nausea, vomiting, diarrhea and/or constipation, weight changes, sexual side effects including loss of libido, increased suicidal thoughts/behaviors in children and young adults, and serotonin syndrome. Second generation antipsychotics (SGAs) have metabolic syndrome issues with weight gain, increase in prolactin, increased waist circumference, increased lipids, and increased glucose. Thus routine monitoring of weight, metabolic labs, etc. is indicated. A general rank ordering of antipsychotics that have the greatest to the least risk of metabolic effects is olanzapine, quetiapine, risperidone, ziprasidone, and aripiprazole. However, weight gain can occur with all of these drugs and considerable variability exists among patients receiving the same drug regarding the risk of metabolic effects. Anti-psychotic agents not only increase the risk of metabolic disorder, they also increase the risk of CVA, akathisia, and movement disorders including EPS or tardive dyskinesia (more common with first generation antipsychotics) and more. hydroxyzine HCl 50 mg tablet - 3. Insomnia disorder related to another mental disorder - Melatonin 10 mg at night OTC limit caffeine therapy CBT will return to therapy Trazodone 50 mg at night- educated to decrease to 50 mg at night- no refill needed monitor B/P STAY HYDRATED monitor sleep and hygiene and memory RLSsleep apnea -has cpap not working - bipap plans to have implant 4. Attention deficit hyperactivity disorder, combined type -ANNA -2 REVIEWED no control substance r/t cannabis usetherapy 5. Long-term drug therapy - Discussion Notes refer to therapy obtain labs PCP 11/13/2023 Other obsessive-compuls shabnam disorder (ICD-10 - F42.8) Obsessive-Compu lsive Disorder: Care Instructions material was published 1. Bipolar disorder, most recent episode depression - Vraylar 4.5 mg daily for Bipolar - improved teresita mood stabilization and teresita- educated on rx monitor B/P educated on all medications, benefits, side effects and risk, and educated on depression, anxiety, and ADHD, mood d/o and educated on compliance of medications, metabolic and movement d/o education appointment is, continue therapy discussion with patient about course of treatment and patient instructions. education on serotonin syndrome SSRI side effects discussed including but not limited to, gastric upset, nausea, vomiting, diarrhea and/or constipation, weight changes, sexual side effects including loss of libido, increased suicidal thoughts/behaviors in children and young adults, and serotonin syndrome. Second generation antipsychotics (SGAs) have metabolic syndrome issues with weight gain, increase in prolactin, increased waist circumference, increased lipids, and increased glucose. Thus routine monitoring of weight, metabolic labs, etc. is indicated. A general rank ordering of antipsychotics that have the greatest to the least risk of metabolic effects is olanzapine, quetiapine, risperidone, ziprasidone, and aripiprazole. However, weight gain can occur with all of these drugs and considerable variability exists among patients receiving the same drug regarding the risk of metabolic effects. Anti-psychotic agents not only increase the risk of metabolic disorder, they also increase the risk of CVA, akathisia, and movement disorders including EPS or tardive dyskinesia (more common with first generation antipsychotics) and more. educated on importance Therapy and CBT - patient and agreed to therapy obtain labs PCP 2. Generalized anxiety disorder - educated to take Vistaril 50 mg three times a day for anxiety and panic as needed - educated on rx (Patient does not tolerate increase dose Wellbutrin) education on all medication refer to therapy and IOP patient will call and check on coverage and cost with a therapy group educated on all medications, benefits, side effects and risk, and educated on depression, anxiety, and ADHD, mood d/o and educated on compliance of medications, metabolic and movement d/o education appointment is, continue therapy discussion with patient about course of treatment and patient instructions. education on serotonin syndrome SSRI side effects discussed including but not limited to, gastric upset, nausea, vomiting, diarrhea and/or constipation, weight changes, sexual side effects including loss of libido, increased suicidal thoughts/behaviors in children and young adults, and serotonin syndrome. Second generation antipsychotics (SGAs) have metabolic syndrome issues with weight gain, increase in prolactin, increased waist circumference, increased lipids, and increased glucose. Thus routine monitoring of weight, metabolic labs, etc. is indicated. A general rank ordering of antipsychotics that have the greatest to the least risk of metabolic effects is olanzapine, quetiapine, risperidone, ziprasidone, and aripiprazole. However, weight gain can occur with all of these drugs and considerable variability exists among patients receiving the same drug regarding the risk of metabolic effects. Anti-psychotic agents not only increase the risk of metabolic disorder, they also increase the risk of CVA, akathisia, and movement disorders including EPS or tardive dyskinesia (more common with first generation antipsychotics) and more. hydroxyzine HCl 50 mg tablet - 3. Insomnia disorder related to another mental disorder - Melatonin 10 mg at night OTC limit caffeine therapy CBT will return to therapy Trazodone 50 mg at night- educated to decrease to 50 mg at night- no refill needed monitor B/P STAY HYDRATED monitor sleep and hygiene and memory RLSsleep apnea -has cpap not working - bipap plans to have implant 4. Attention deficit hyperactivity disorder, combined type -ANNA -2 REVIEWED no control substance r/t cannabis usetherapy 5. Long-term drug therapy - Discussion Notes refer to therapy obtain labs PCP 03/24/2024 Cannabis dependence, uncomplicated (ICD-10 - F12.20) Learning About Cannabis Use Disorder material was published, Learning About Substance Use Disorder material was published, Substance Use Disorder: Care Instructions material was published, Marijuana Use: Care Instructions material was published, Codependency: Care Instructions material was published 1. Bipolar disorder, most recent episode depression - Vraylar 4.5 mg daily for Bipolar - mood stabilization and teresita- educated on rx monitor B/P discuss and educated on Lamotrigine for depression Add Lamotrigne 25 mg daily - monitor for GI issues Lamotrigine lamotrigine has a serious rashes requiring hospitalization and discontinue treatment including Clemente Micah syndrome rare case of toxic epidermal necrolysis and cache related deaths. Incidence with adjunct of epilepsy treatment 0.8% in 2 to 16 years old and 0.3% in adults, bipolar and other mood disorders incidence 0.8% this initial monotherapy and 0.13% as adjunctive treatment. Other risk factor may include concomitant use of valproate acid derivative or exceeding initial lamotrigine does or does as clinician recommendation; most life-threatening rash of occurring first 2 to 8 week of treatment with isolated cases after prolonged treatment; though benign may occur, discontinue treatment at first sign of rash unless clearly not a drug related; TC treatment may not prevent trash from becoming life-threatening or permanently disabling or disfiguring. Comment reaction include, nausea/vomiting, dizziness/vertigo, visual disturbances, somnolence, ataxia, pruritus/rash, pharyngitis, headache, rhinitis, diarrhea, fever, asthenia, insomnia, tremor, abdominal pain, cough, accidental injury, constipation, dysmenorrhea, incoordination, anxiety, seizures, irritability, anorexia, xerostomia, and photosensitivity. Serious reactions include: Rash, severe; Dunaway Micah syndrome; toxic epidermal necrosis; injury edema, hypersensitivity reactions. Including fatal, multiple organ failure to safe fatal, rash with eosinophilia systemic symptoms, DIC, neutropenia, leukopenia, thrombocytopenia, pancytopenia, aplastic anemia, hemolytic anemia, i pancreatitis, hepatic failure, rhabdomyolysis, worsening of suicidal ideation, worsening of depression, cleft lip/palate [first trimester use] DO not Change Cosmetic, perfumes or soap for next 4 weeks. The patient was advice to take lamotrigine as prescribed the patient was instructed not to deviate from the prescription dosages. Stop lamotrigine is the first sign of rash. Patient was insisted to inform office if any of the serious side effect develops. Cannabis use Recommend decrease/stop cannabis use as it can negatively impact mood, motivation, anxiety, sleep, focus/concentratio n/memory (vigilance, elasticity, processing and attention); can also contribute to development of psychosis. http_s://www.nimh. nih.gov/health/top ics/mental-health- medications http_s://www.ju. org/Ggvoy-Rlddcc-Q llness/Treatments/ Cdrour-Ebawda-Nmsd cations Recommend decrease/stop cannabis use as it may be negatively impacting mood, motivation, anxiety, sleep, focus; can also contribute to development of psychosis Cannabis/marijuana information: http_s://dimitry.nih. gov/publications/d rugfacts/cannabis- marijuana http_s://www.Zubican/cannabi s-egz-cmtfymwk-mar ijuana-adhd/ http_s://www.ju. org/Lwhlt-Zphrhy-X llness/Mental-Heal th-Conditions http_s://psychcent T3 MOTION.com/depression /zfz-jbuawqmax-tde ogykp-gp-qnisumzqk n#treatments http__s://www.nimh .nih.gov/health/to pics/mental-health -medications http__s://www.ju .org/About-Mental- Illness/Treatments /Uymhuw-Wqfobo-Qie ications educated on all medications, benefits, side effects and risk, and educated on depression, anxiety, and ADHD, mood d/o and educated on compliance of medications, metabolic and movement d/o education appointment is, continue therapy discussion with patient about course of treatment and patient instructions. education on serotonin syndrome SSRI side effects discussed including but not limited to, gastric upset, nausea, vomiting, diarrhea and/or constipation, weight changes, sexual side effects including loss of libido, increased suicidal thoughts/behaviors in children and young adults, and serotonin syndrome. Second generation antipsychotics (SGAs) have metabolic syndrome issues with weight gain, increase in prolactin, increased waist circumference, increased lipids, and increased glucose. Thus routine monitoring of weight, metabolic labs, etc. is indicated. A general rank ordering of antipsychotics that have the greatest to the least risk of metabolic effects is olanzapine, quetiapine, risperidone, ziprasidone, and aripiprazole. However, weight gain can occur with all of these drugs and considerable variability exists among patients receiving the same drug regarding the risk of metabolic effects. Anti-psychotic agents not only increase the risk of metabolic disorder, they also increase the risk of CVA, akathisia, and movement disorders including EPS or tardive dyskinesia (more common with first generation antipsychotics) and more. educated on importance Therapy and CBT - patient and agreed to therapy obtain labs PCP 2. Generalized anxiety disorder - educated to take Vistaril 50 mg three times a day for anxiety and panic as needed - educated on rx (Patient does not tolerate increase dose Wellbutrin) education on all medication refer to therapy and IOP patient will call and check on coverage and cost with a therapy group educated on all medications, benefits, side effects and risk, and educated on depression, anxiety, and ADHD, mood d/o and educated on compliance of medications, metabolic and movement d/o education appointment is, continue therapy discussion with patient about course of treatment and patient instructions. education on serotonin syndrome SSRI side effects discussed including but not limited to, gastric upset, nausea, vomiting, diarrhea and/or constipation, weight changes, sexual side effects including loss of libido, increased suicidal thoughts/behaviors in children and young adults, and serotonin syndrome. Second generation antipsychotics (SGAs) have metabolic syndrome issues with weight gain, increase in prolactin, increased waist circumference, increased lipids, and increased glucose. Thus routine monitoring of weight, metabolic labs, etc. is indicated. A general rank ordering of antipsychotics that have the greatest to the least risk of metabolic effects is olanzapine, quetiapine, risperidone, ziprasidone, and aripiprazole. However, weight gain can occur with all of these drugs and considerable variability exists among patients receiving the same drug regarding the risk of metabolic effects. Anti-psychotic agents not only increase the risk of metabolic disorder, they also increase the risk of CVA, akathisia, and movement disorders including EPS or tardive dyskinesia (more common with first generation antipsychotics) and more. hydroxyzine HCl 50 mg tablet - 3. Insomnia disorder related to another mental disorder - Melatonin 10 mg at night OTC limit caffeine therapy CBT will return to therapy Trazodone 50 mg at night- educated on rx monitor B/P STAY HYDRATED monitor sleep and hygiene and memory RLSsleep apnea -has cpap not working - not using bipap plans to have implant- 4. Attention deficit hyperactivity disorder, combined type -ANNA -2 REVIEWED no control substance r/t cannabis usetherapy 5. Long-term drug therapy - Discussion Notes refer to therapy obtain labs PCP 06/24/2024 Insomnia due to other mental disorder (ICD-10 - F51.05) 1. Bipolar disorder, most recent episode depression - Vraylar 4.5 mg daily for Bipolar - no s/e helping depression no teresita mood stabilization and teresita- educated on rx monitor B/P discuss and educated on Lamotrigine for depression Lamotrigne 25 mg daily - reported helping monitor for GI issues Lamotrigine lamotrigine has a serious rashes requiring hospitalization and discontinue treatment including Clemente Micah syndrome rare case of toxic epidermal necrolysis and cache related deaths. Incidence with adjunct of epilepsy treatment 0.8% in 2 to 16 years old and 0.3% in adults, bipolar and other mood disorders incidence 0.8% this initial monotherapy and 0.13% as adjunctive treatment. Other risk factor may include concomitant use of valproate acid derivative or exceeding initial lamotrigine does or does as clinician recommendation; most life-threatening rash of occurring first 2 to 8 week of treatment with isolated cases after prolonged treatment; though benign may occur, discontinue treatment at first sign of rash unless clearly not a drug related; TC treatment may not prevent trash from becoming life-threatening or permanently disabling or disfiguring. Comment reaction include, nausea/vomiting, dizziness/vertigo, visual disturbances, somnolence, ataxia, pruritus/rash, pharyngitis, headache, rhinitis, diarrhea, fever, asthenia, insomnia, tremor, abdominal pain, cough, accidental injury, constipation, dysmenorrhea, incoordination, anxiety, seizures, irritability, anorexia, xerostomia, and photosensitivity. Serious reactions include: Rash, severe; Dunaway Micah syndrome; toxic epidermal necrosis; injury edema, hypersensitivity reactions. Including fatal, multiple organ failure to safe fatal, rash with eosinophilia systemic symptoms, DIC, neutropenia, leukopenia, thrombocytopenia, pancytopenia, aplastic anemia, hemolytic anemia, i pancreatitis, hepatic failure, rhabdomyolysis, worsening of suicidal ideation, worsening of depression, cleft lip/palate [first trimester use] DO not Change Cosmetic, perfumes or soap for next 4 weeks. The patient was advice to take lamotrigine as prescribed the patient was instructed not to deviate from the prescription dosages. Stop lamotrigine is the first sign of rash. Patient was insisted to inform office if any of the serious side effect develops. Cannabis use Recommend decrease/stop cannabis use as it can negatively impact mood, motivation, anxiety, sleep, focus/concentratio n/memory (vigilance, elasticity, processing and attention); can also contribute to development of psychosis. http_s://www.nimh. nih.gov/health/top ics/mental-health- medications http_s://www.ju. org/Mdyle-Xsgizy-Q llness/Treatments/ Bvlkiu-Epoeei-Gsho cations Recommend decrease/stop cannabis use as it may be negatively impacting mood, motivation, anxiety, sleep, focus; can also contribute to development of psychosis Cannabis/marijuana information: http_s://dimitry.nih. gov/publications/d rugfacts/cannabis- marijuana http_s://www.Zubican/cannabi w-dnn-tpheyqvx-mar ijuana-adhd/ http_s://www.ju. org/Encxg-Lifuvk-F llness/Mental-Heal th-Conditions http_s://psychcent T3 [employer]ION.com/depression /evu-fzpnmqyoh-dgw gksgz-pb-cxfkkjvqe n#treatments http__s://www.nimh .nih.gov/health/to pics/mental-health -medications http__s://www.ju .org/About-Mental- Illness/Treatments /Yxifxy-Wdbutv-Pkk ications educated on all medications, benefits, side effects and risk, and educated on depression, anxiety, and ADHD, mood d/o and educated on compliance of medications, metabolic and movement d/o education appointment is, continue therapy discussion with patient about course of treatment and patient instructions. education on serotonin syndrome SSRI side effects discussed including but not limited to, gastric upset, nausea, vomiting, diarrhea and/or constipation, weight changes, sexual side effects including loss of libido, increased suicidal thoughts/behaviors in children and young adults, and serotonin syndrome. Second generation antipsychotics (SGAs) have metabolic syndrome issues with weight gain, increase in prolactin, increased waist circumference, increased lipids, and increased glucose. Thus routine monitoring of weight, metabolic labs, etc. is indicated. A general rank ordering of antipsychotics that have the greatest to the least risk of metabolic effects is olanzapine, quetiapine, risperidone, ziprasidone, and aripiprazole. However, weight gain can occur with all of these drugs and considerable variability exists among patients receiving the same drug regarding the risk of metabolic effects. Anti-psychotic agents not only increase the risk of metabolic disorder, they also increase the risk of CVA, akathisia, and movement disorders including EPS or tardive dyskinesia (more common with first generation antipsychotics) and more. educated on importance Therapy and CBT - patient and agreed to therapy obtain labs PCP 2. Generalized anxiety disorder - Vistaril 50 mg twice a day for anxiety and panic as needed - educated on rx (Patient does not tolerate increase dose Wellbutrin) education on all medication refer to therapy and IOP patient will call and check on coverage and cost with a therapy group educated on all medications, benefits, side effects and risk, and educated on depression, anxiety, and ADHD, mood d/o and educated on compliance of medications, metabolic and movement d/o education appointment is, continue therapy discussion with patient about course of treatment and patient instructions. education on serotonin syndrome SSRI side effects discussed including but not limited to, gastric upset, nausea, vomiting, diarrhea and/or constipation, weight changes, sexual side effects including loss of libido, increased suicidal thoughts/behaviors in children and young adults, and serotonin syndrome. Second generation antipsychotics (SGAs) have metabolic syndrome issues with weight gain, increase in prolactin, increased waist circumference, increased lipids, and increased glucose. Thus routine monitoring of weight, metabolic labs, etc. is indicated. A general rank ordering of antipsychotics that have the greatest to the least risk of metabolic effects is olanzapine, quetiapine, risperidone, ziprasidone, and aripiprazole. However, weight gain can occur with all of these drugs and considerable variability exists among patients receiving the same drug regarding the risk of metabolic effects. Anti-psychotic agents not only increase the risk of metabolic disorder, they also increase the risk of CVA, akathisia, and movement disorders including EPS or tardive dyskinesia (more common with first generation antipsychotics) and more. hydroxyzine HCl 50 mg tablet - 3. Insomnia disorder related to another mental disorder - Melatonin 10 mg at night OTC limit caffeine therapy CBT will return to therapy increase Trazodone 100 mg at night- educated on rx monitor B/P- see PCP on rx STAY HYDRATED monitor sleep and hygiene and memory RLSsleep apnea -has cpap not working - not using bipap may plan to have implant- 4. Attention deficit hyperactivity disorder, combined type -ANNA -2 REVIEWED no control substance r/t cannabis use therapy discuss 5. Tobacco use discuss TMS for smoking cessation- pamplet given- patient will consider Smoking Education Do not smoke. Nicotine and other chemicals in cigarettes and cigars can cause lung damage. Ask your healthcare provider for information if you currently smoke and need help to quit. E-cigarettes or smokeless tobacco still contain nicotine. Talk to your healthcare provider before you use these products. education on decrease to stopping nicotine products and stop smoking hotline given Quit - Yes [place] Tobacco Quitline Call a Smoking Quitline The National Cancer [place]'s Smoking Quitline, (3-833-19V-QUIT) Smokefree.gov, which connects you with your State's Quitline, (1-812-HWSQXIO) [facility] Smoking Quitline, (0-851-DGRBWBT) Discussion Notes refer to therapy obtain labs PCP TMS for smoking cessation 03/24/2024 Other obsessive-compuls shabnam disorder (ICD-10 - F42.8) Obsessive-Compu lsive Disorder: Care Instructions material was published 1. Bipolar disorder, most recent episode depression - Vraylar 4.5 mg daily for Bipolar - mood stabilization and teresita- educated on rx monitor B/P discuss and educated on Lamotrigine for depression Add Lamotrigne 25 mg daily - monitor for GI issues Lamotrigine lamotrigine has a serious rashes requiring hospitalization and discontinue treatment including Clemente Micah syndrome rare case of toxic epidermal necrolysis and cache related deaths. Incidence with adjunct of epilepsy treatment 0.8% in 2 to 16 years old and 0.3% in adults, bipolar and other mood disorders incidence 0.8% this initial monotherapy and 0.13% as adjunctive treatment. Other risk factor may include concomitant use of valproate acid derivative or exceeding initial lamotrigine does or does as clinician recommendation; most life-threatening rash of occurring first 2 to 8 week of treatment with isolated cases after prolonged treatment; though benign may occur, discontinue treatment at first sign of rash unless clearly not a drug related; TC treatment may not prevent trash from becoming life-threatening or permanently disabling or disfiguring. Comment reaction include, nausea/vomiting, dizziness/vertigo, visual disturbances, somnolence, ataxia, pruritus/rash, pharyngitis, headache, rhinitis, diarrhea, fever, asthenia, insomnia, tremor, abdominal pain, cough, accidental injury, constipation, dysmenorrhea, incoordination, anxiety, seizures, irritability, anorexia, xerostomia, and photosensitivity. Serious reactions include: Rash, severe; Dunaway Micah syndrome; toxic epidermal necrosis; injury edema, hypersensitivity reactions. Including fatal, multiple organ failure to safe fatal, rash with eosinophilia systemic symptoms, DIC, neutropenia, leukopenia, thrombocytopenia, pancytopenia, aplastic anemia, hemolytic anemia, i pancreatitis, hepatic failure, rhabdomyolysis, worsening of suicidal ideation, worsening of depression, cleft lip/palate [first trimester use] DO not Change Cosmetic, perfumes or soap for next 4 weeks. The patient was advice to take lamotrigine as prescribed the patient was instructed not to deviate from the prescription dosages. Stop lamotrigine is the first sign of rash. Patient was insisted to inform office if any of the serious side effect develops. Cannabis use Recommend decrease/stop cannabis use as it can negatively impact mood, motivation, anxiety, sleep, focus/concentratio n/memory (vigilance, elasticity, processing and attention); can also contribute to development of psychosis. http_s://www.nimh. nih.gov/health/top ics/mental-health- medications http_s://www.ju. org/Gwcco-Llwcwg-T llness/Treatments/ Ellmtb-Iktppx-Wqub cations Recommend decrease/stop cannabis use as it may be negatively impacting mood, motivation, anxiety, sleep, focus; can also contribute to development of psychosis Cannabis/marijuana information: http_s://dimitry.nih. gov/publications/d rugfacts/cannabis- marijuana http_s://www.Zubican/cannabi p-thx-lmcsikwj-mar ijuana-adhd/ http_s://www.ju. org/Snadw-Emnbkn-R llness/Mental-Heal th-Conditions http_s://Minitrade/depression /klr-pxvjmkqcf-dwi lrwur-jz-dekbvslsi n#treatments http__s://www.nimh .nih.gov/health/to pics/mental-health -medications http__s://www.ju .org/About-Mental- Illness/Treatments /Nxmwpt-Tnotgd-Lvy ications educated on all medications, benefits, side effects and risk, and educated on depression, anxiety, and ADHD, mood d/o and educated on compliance of medications, metabolic and movement d/o education appointment is, continue therapy discussion with patient about course of treatment and patient instructions. education on serotonin syndrome SSRI side effects discussed including but not limited to, gastric upset, nausea, vomiting, diarrhea and/or constipation, weight changes, sexual side effects including loss of libido, increased suicidal thoughts/behaviors in children and young adults, and serotonin syndrome. Second generation antipsychotics (SGAs) have metabolic syndrome issues with weight gain, increase in prolactin, increased waist circumference, increased lipids, and increased glucose. Thus routine monitoring of weight, metabolic labs, etc. is indicated. A general rank ordering of antipsychotics that have the greatest to the least risk of metabolic effects is olanzapine, quetiapine, risperidone, ziprasidone, and aripiprazole. However, weight gain can occur with all of these drugs and considerable variability exists among patients receiving the same drug regarding the risk of metabolic effects. Anti-psychotic agents not only increase the risk of metabolic disorder, they also increase the risk of CVA, akathisia, and movement disorders including EPS or tardive dyskinesia (more common with first generation antipsychotics) and more. educated on importance Therapy and CBT - patient and agreed to therapy obtain labs PCP 2. Generalized anxiety disorder - educated to take Vistaril 50 mg three times a day for anxiety and panic as needed - educated on rx (Patient does not tolerate increase dose Wellbutrin) education on all medication refer to therapy and IOP patient will call and check on coverage and cost with a therapy group educated on all medications, benefits, side effects and risk, and educated on depression, anxiety, and ADHD, mood d/o and educated on compliance of medications, metabolic and movement d/o education appointment is, continue therapy discussion with patient about course of treatment and patient instructions. education on serotonin syndrome SSRI side effects discussed including but not limited to, gastric upset, nausea, vomiting, diarrhea and/or constipation, weight changes, sexual side effects including loss of libido, increased suicidal thoughts/behaviors in children and young adults, and serotonin syndrome. Second generation antipsychotics (SGAs) have metabolic syndrome issues with weight gain, increase in prolactin, increased waist circumference, increased lipids, and increased glucose. Thus routine monitoring of weight, metabolic labs, etc. is indicated. A general rank ordering of antipsychotics that have the greatest to the least risk of metabolic effects is olanzapine, quetiapine, risperidone, ziprasidone, and aripiprazole. However, weight gain can occur with all of these drugs and considerable variability exists among patients receiving the same drug regarding the risk of metabolic effects. Anti-psychotic agents not only increase the risk of metabolic disorder, they also increase the risk of CVA, akathisia, and movement disorders including EPS or tardive dyskinesia (more common with first generation antipsychotics) and more. hydroxyzine HCl 50 mg tablet - 3. Insomnia disorder related to another mental disorder - Melatonin 10 mg at night OTC limit caffeine therapy CBT will return to therapy Trazodone 50 mg at night- educated on rx monitor B/P STAY HYDRATED monitor sleep and hygiene and memory RLSsleep apnea -has cpap not working - not using bipap plans to have implant- 4. Attention deficit hyperactivity disorder, combined type -ANNA -2 REVIEWED no control substance r/t cannabis usetherapy 5. Long-term drug therapy - Discussion Notes refer to therapy obtain labs PCP 06/24/2024 Post-traumatic stress disorder, chronic (ICD-10 - F43.12) Post-Traumatic Stress Disorder (PTSD): Care Instructions material was published 1. Bipolar disorder, most recent episode depression - Vraylar 4.5 mg daily for Bipolar - no s/e helping depression no teresita mood stabilization and teresita- educated on rx monitor B/P discuss and educated on Lamotrigine for depression Lamotrigne 25 mg daily - reported helping monitor for GI issues Lamotrigine lamotrigine has a serious rashes requiring hospitalization and discontinue treatment including Clemente Micah syndrome rare case of toxic epidermal necrolysis and cache related deaths. Incidence with adjunct of epilepsy treatment 0.8% in 2 to 16 years old and 0.3% in adults, bipolar and other mood disorders incidence 0.8% this initial monotherapy and 0.13% as adjunctive treatment. Other risk factor may include concomitant use of valproate acid derivative or exceeding initial lamotrigine does or does as clinician recommendation; most life-threatening rash of occurring first 2 to 8 week of treatment with isolated cases after prolonged treatment; though benign may occur, discontinue treatment at first sign of rash unless clearly not a drug related; TC treatment may not prevent trash from becoming life-threatening or permanently disabling or disfiguring. Comment reaction include, nausea/vomiting, dizziness/vertigo, visual disturbances, somnolence, ataxia, pruritus/rash, pharyngitis, headache, rhinitis, diarrhea, fever, asthenia, insomnia, tremor, abdominal pain, cough, accidental injury, constipation, dysmenorrhea, incoordination, anxiety, seizures, irritability, anorexia, xerostomia, and photosensitivity. Serious reactions include: Rash, severe; Dunaway Micah syndrome; toxic epidermal necrosis; injury edema, hypersensitivity reactions. Including fatal, multiple organ failure to safe fatal, rash with eosinophilia systemic symptoms, DIC, neutropenia, leukopenia, thrombocytopenia, pancytopenia, aplastic anemia, hemolytic anemia, i pancreatitis, hepatic failure, rhabdomyolysis, worsening of suicidal ideation, worsening of depression, cleft lip/palate [first trimester use] DO not Change Cosmetic, perfumes or soap for next 4 weeks. The patient was advice to take lamotrigine as prescribed the patient was instructed not to deviate from the prescription dosages. Stop lamotrigine is the first sign of rash. Patient was insisted to inform office if any of the serious side effect develops. Cannabis use Recommend decrease/stop cannabis use as it can negatively impact mood, motivation, anxiety, sleep, focus/concentratio n/memory (vigilance, elasticity, processing and attention); can also contribute to development of psychosis. http_s://www.nimh. nih.gov/health/top ics/mental-health- medications http_s://www.ju. org/Kfcra-Nknucn-M llness/Treatments/ Jcxzhz-Qrmzxw-Gzus cations Recommend decrease/stop cannabis use as it may be negatively impacting mood, motivation, anxiety, sleep, focus; can also contribute to development of psychosis Cannabis/marijuana information: http_s://dimitry.nih. gov/publications/d rugfacts/cannabis- marijuana http_s://www.Zubican/cannabi z-oxw-rwmgupyl-mar ijuana-adhd/ http_s://www.ju. org/Ktlou-Adqeos-H llness/Mental-Heal th-Conditions http_s://Minitrade/depression /zei-gxgxjkfvp-dvu jkzut-bj-nnaklcstl n#treatments http__s://www.nimh .nih.gov/health/to pics/mental-health -medications http__s://www.ju .org/About-Mental- Illness/Treatments /Izaccz-Ofbkhk-Dln ications educated on all medications, benefits, side effects and risk, and educated on depression, anxiety, and ADHD, mood d/o and educated on compliance of medications, metabolic and movement d/o education appointment is, continue therapy discussion with patient about course of treatment and patient instructions. education on serotonin syndrome SSRI side effects discussed including but not limited to, gastric upset, nausea, vomiting, diarrhea and/or constipation, weight changes, sexual side effects including loss of libido, increased suicidal thoughts/behaviors in children and young adults, and serotonin syndrome. Second generation antipsychotics (SGAs) have metabolic syndrome issues with weight gain, increase in prolactin, increased waist circumference, increased lipids, and increased glucose. Thus routine monitoring of weight, metabolic labs, etc. is indicated. A general rank ordering of antipsychotics that have the greatest to the least risk of metabolic effects is olanzapine, quetiapine, risperidone, ziprasidone, and aripiprazole. However, weight gain can occur with all of these drugs and considerable variability exists among patients receiving the same drug regarding the risk of metabolic effects. Anti-psychotic agents not only increase the risk of metabolic disorder, they also increase the risk of CVA, akathisia, and movement disorders including EPS or tardive dyskinesia (more common with first generation antipsychotics) and more. educated on importance Therapy and CBT - patient and agreed to therapy obtain labs PCP 2. Generalized anxiety disorder - Vistaril 50 mg twice a day for anxiety and panic as needed - educated on rx (Patient does not tolerate increase dose Wellbutrin) education on all medication refer to therapy and IOP patient will call and check on coverage and cost with a therapy group educated on all medications, benefits, side effects and risk, and educated on depression, anxiety, and ADHD, mood d/o and educated on compliance of medications, metabolic and movement d/o education appointment is, continue therapy discussion with patient about course of treatment and patient instructions. education on serotonin syndrome SSRI side effects discussed including but not limited to, gastric upset, nausea, vomiting, diarrhea and/or constipation, weight changes, sexual side effects including loss of libido, increased suicidal thoughts/behaviors in children and young adults, and serotonin syndrome. Second generation antipsychotics (SGAs) have metabolic syndrome issues with weight gain, increase in prolactin, increased waist circumference, increased lipids, and increased glucose. Thus routine monitoring of weight, metabolic labs, etc. is indicated. A general rank ordering of antipsychotics that have the greatest to the least risk of metabolic effects is olanzapine, quetiapine, risperidone, ziprasidone, and aripiprazole. However, weight gain can occur with all of these drugs and considerable variability exists among patients receiving the same drug regarding the risk of metabolic effects. Anti-psychotic agents not only increase the risk of metabolic disorder, they also increase the risk of CVA, akathisia, and movement disorders including EPS or tardive dyskinesia (more common with first generation antipsychotics) and more. hydroxyzine HCl 50 mg tablet - 3. Insomnia disorder related to another mental disorder - Melatonin 10 mg at night OTC limit caffeine therapy CBT will return to therapy increase Trazodone 100 mg at night- educated on rx monitor B/P- see PCP on rx STAY HYDRATED monitor sleep and hygiene and memory RLSsleep apnea -has cpap not working - not using bipap may plan to have implant- 4. Attention deficit hyperactivity disorder, combined type -ANNA -2 REVIEWED no control substance r/t cannabis use therapy discuss 5. Tobacco use discuss TMS for smoking cessation- pamplet given- patient will consider Smoking Education Do not smoke. Nicotine and other chemicals in cigarettes and cigars can cause lung damage. Ask your healthcare provider for information if you currently smoke and need help to quit. E-cigarettes or smokeless tobacco still contain nicotine. Talk to your healthcare provider before you use these products. education on decrease to stopping nicotine products and stop smoking hotline given -Quit - Yes [place] Tobacco Quitline Call a Smoking Quitline The [employer] [place]'s Smoking Quitline, (6-322-75O-QUIT) Smokefree.gov, which connects you with your State's Quitline, (3-955-RDKQQDC) [facility] Smoking Quitline, (0-068-ETREIMQ) Discussion Notes refer to therapy obtain labs PCP TMS for smoking cessation 06/24/2024 Other half-way (current) drug therapy (ICD-10 - Z79.899) Medication Refill: Care Instructions material was published 1. Bipolar disorder, most recent episode depression - Vraylar 4.5 mg daily for Bipolar - no s/e helping depression no teresita mood stabilization and teresita- educated on rx monitor B/P discuss and educated on Lamotrigine for depression Lamotrigne 25 mg daily - reported helping monitor for GI issues Lamotrigine lamotrigine has a serious rashes requiring hospitalization and discontinue treatment including Clemente Micah syndrome rare case of toxic epidermal necrolysis and cache related deaths. Incidence with adjunct of epilepsy treatment 0.8% in 2 to 16 years old and 0.3% in adults, bipolar and other mood disorders incidence 0.8% this initial monotherapy and 0.13% as adjunctive treatment. Other risk factor may include concomitant use of valproate acid derivative or exceeding initial lamotrigine does or does as clinician recommendation; most life-threatening rash of occurring first 2 to 8 week of treatment with isolated cases after prolonged treatment; though benign may occur, discontinue treatment at first sign of rash unless clearly not a drug related; TC treatment may not prevent trash from becoming life-threatening or permanently disabling or disfiguring. Comment reaction include, nausea/vomiting, dizziness/vertigo, visual disturbances, somnolence, ataxia, pruritus/rash, pharyngitis, headache, rhinitis, diarrhea, fever, asthenia, insomnia, tremor, abdominal pain, cough, accidental injury, constipation, dysmenorrhea, incoordination, anxiety, seizures, irritability, anorexia, xerostomia, and photosensitivity. Serious reactions include: Rash, severe; Dunaway Micah syndrome; toxic epidermal necrosis; injury edema, hypersensitivity reactions. Including fatal, multiple organ failure to safe fatal, rash with eosinophilia systemic symptoms, DIC, neutropenia, leukopenia, thrombocytopenia, pancytopenia, aplastic anemia, hemolytic anemia, i pancreatitis, hepatic failure, rhabdomyolysis, worsening of suicidal ideation, worsening of depression, cleft lip/palate [first trimester use] DO not Change Cosmetic, perfumes or soap for next 4 weeks. The patient was advice to take lamotrigine as prescribed the patient was instructed not to deviate from the prescription dosages. Stop lamotrigine is the first sign of rash. Patient was insisted to inform office if any of the serious side effect develops. Cannabis use Recommend decrease/stop cannabis use as it can negatively impact mood, motivation, anxiety, sleep, focus/concentratio n/memory (vigilance, elasticity, processing and attention); can also contribute to development of psychosis. http_s://www.nimh. nih.gov/health/top ics/mental-health- medications http_s://www.ju. org/Boxit-Utffda-B llness/Treatments/ Hzhafp-Kdevdv-Drku cations Recommend decrease/stop cannabis use as it may be negatively impacting mood, motivation, anxiety, sleep, focus; can also contribute to development of psychosis Cannabis/marijuana information: http_s://dimitry.nih. gov/publications/d rugfacts/cannabis- marijuana http_s://www.Zubican/cannabi s-zsr-kpealnbs-mar ijuana-adhd/ http_s://www.ju. org/Wclmu-Mbzakq-L llness/Mental-Heal th-Conditions http_s://psychcent T3 MOTION.com/depression /hir-erghjzxcj-nrj jzsyq-fp-rsvmijjze n#treatments http__s://www.nimh .nih.gov/health/to pics/mental-health -medications http__s://www.ju .org/About-Mental- Illness/Treatments /Jzjtkx-Tjzbhn-Cfv ications educated on all medications, benefits, side effects and risk, and educated on depression, anxiety, and ADHD, mood d/o and educated on compliance of medications, metabolic and movement d/o education appointment is, continue therapy discussion with patient about course of treatment and patient instructions. education on serotonin syndrome SSRI side effects discussed including but not limited to, gastric upset, nausea, vomiting, diarrhea and/or constipation, weight changes, sexual side effects including loss of libido, increased suicidal thoughts/behaviors in children and young adults, and serotonin syndrome. Second generation antipsychotics (SGAs) have metabolic syndrome issues with weight gain, increase in prolactin, increased waist circumference, increased lipids, and increased glucose. Thus routine monitoring of weight, metabolic labs, etc. is indicated. A general rank ordering of antipsychotics that have the greatest to the least risk of metabolic effects is olanzapine, quetiapine, risperidone, ziprasidone, and aripiprazole. However, weight gain can occur with all of these drugs and considerable variability exists among patients receiving the same drug regarding the risk of metabolic effects. Anti-psychotic agents not only increase the risk of metabolic disorder, they also increase the risk of CVA, akathisia, and movement disorders including EPS or tardive dyskinesia (more common with first generation antipsychotics) and more. educated on importance Therapy and CBT - patient and agreed to therapy obtain labs PCP 2. Generalized anxiety disorder - Vistaril 50 mg twice a day for anxiety and panic as needed - educated on rx (Patient does not tolerate increase dose Wellbutrin) education on all medication refer to therapy and IOP patient will call and check on coverage and cost with a therapy group educated on all medications, benefits, side effects and risk, and educated on depression, anxiety, and ADHD, mood d/o and educated on compliance of medications, metabolic and movement d/o education appointment is, continue therapy discussion with patient about course of treatment and patient instructions. education on serotonin syndrome SSRI side effects discussed including but not limited to, gastric upset, nausea, vomiting, diarrhea and/or constipation, weight changes, sexual side effects including loss of libido, increased suicidal thoughts/behaviors in children and young adults, and serotonin syndrome. Second generation antipsychotics (SGAs) have metabolic syndrome issues with weight gain, increase in prolactin, increased waist circumference, increased lipids, and increased glucose. Thus routine monitoring of weight, metabolic labs, etc. is indicated. A general rank ordering of antipsychotics that have the greatest to the least risk of metabolic effects is olanzapine, quetiapine, risperidone, ziprasidone, and aripiprazole. However, weight gain can occur with all of these drugs and considerable variability exists among patients receiving the same drug regarding the risk of metabolic effects. Anti-psychotic agents not only increase the risk of metabolic disorder, they also increase the risk of CVA, akathisia, and movement disorders including EPS or tardive dyskinesia (more common with first generation antipsychotics) and more. hydroxyzine HCl 50 mg tablet - 3. Insomnia disorder related to another mental disorder - Melatonin 10 mg at night OTC limit caffeine therapy CBT will return to therapy increase Trazodone 100 mg at night- educated on rx monitor B/P- see PCP on rx STAY HYDRATED monitor sleep and hygiene and memory RLSsleep apnea -has cpap not working - not using bipap may plan to have implant- 4. Attention deficit hyperactivity disorder, combined type -ANNA -2 REVIEWED no control substance r/t cannabis use therapy discuss 5. Tobacco use discuss TMS for smoking cessation- pamplet given- patient will consider Smoking Education Do not smoke. Nicotine and other chemicals in cigarettes and cigars can cause lung damage. Ask your healthcare provider for information if you currently smoke and need help to quit. E-cigarettes or smokeless tobacco still contain nicotine. Talk to your healthcare provider before you use these products. education on decrease to stopping nicotine products and stop smoking hotline given Quit - Yes [place] Tobacco Quitline Call a Smoking Quitline The [employer] [place]'s Smoking Quitline, (9-970-35B-QUIT) Smokefree.gov, which connects you with your State's Quitline, (6-009-DECJYGI) [facility] Smoking Quitline, (4-856-BPZURWP) Discussion Notes refer to therapy obtain labs PCP TMS for smoking cessation 06/24/2024 Cannabis dependence, uncomplicated (ICD-10 - F12.20) Learning About Cannabis Use Disorder material was published, Learning About Substance Use Disorder material was published, Substance Use Disorder: Care Instructions material was published, Marijuana Use: Care Instructions material was published, Codependency: Care Instructions material was published 1. Bipolar disorder, most recent episode depression - Vraylar 4.5 mg daily for Bipolar - no s/e helping depression no teresita mood stabilization and teresita- educated on rx monitor B/P discuss and educated on Lamotrigine for depression Lamotrigne 25 mg daily - reported helping monitor for GI issues Lamotrigine lamotrigine has a serious rashes requiring hospitalization and discontinue treatment including Clemente Micah syndrome rare case of toxic epidermal necrolysis and cache related deaths. Incidence with adjunct of epilepsy treatment 0.8% in 2 to 16 years old and 0.3% in adults, bipolar and other mood disorders incidence 0.8% this initial monotherapy and 0.13% as adjunctive treatment. Other risk factor may include concomitant use of valproate acid derivative or exceeding initial lamotrigine does or does as clinician recommendation; most life-threatening rash of occurring first 2 to 8 week of treatment with isolated cases after prolonged treatment; though benign may occur, discontinue treatment at first sign of rash unless clearly not a drug related; TC treatment may not prevent trash from becoming life-threatening or permanently disabling or disfiguring. Comment reaction include, nausea/vomiting, dizziness/vertigo, visual disturbances, somnolence, ataxia, pruritus/rash, pharyngitis, headache, rhinitis, diarrhea, fever, asthenia, insomnia, tremor, abdominal pain, cough, accidental injury, constipation, dysmenorrhea, incoordination, anxiety, seizures, irritability, anorexia, xerostomia, and photosensitivity. Serious reactions include: Rash, severe; Dunaway Micah syndrome; toxic epidermal necrosis; injury edema, hypersensitivity reactions. Including fatal, multiple organ failure to safe fatal, rash with eosinophilia systemic symptoms, DIC, neutropenia, leukopenia, thrombocytopenia, pancytopenia, aplastic anemia, hemolytic anemia, i pancreatitis, hepatic failure, rhabdomyolysis, worsening of suicidal ideation, worsening of depression, cleft lip/palate [first trimester use] DO not Change Cosmetic, perfumes or soap for next 4 weeks. The patient was advice to take lamotrigine as prescribed the patient was instructed not to deviate from the prescription dosages. Stop lamotrigine is the first sign of rash. Patient was insisted to inform office if any of the serious side effect develops. Cannabis use Recommend decrease/stop cannabis use as it can negatively impact mood, motivation, anxiety, sleep, focus/concentratio n/memory (vigilance, elasticity, processing and attention); can also contribute to development of psychosis. http_s://www.nimh. nih.gov/health/top ics/mental-health- medications http_s://www.ju. org/Ymalg-Adaaji-B llness/Treatments/ Kmdchp-Tpztwc-Lvea cations Recommend decrease/stop cannabis use as it may be negatively impacting mood, motivation, anxiety, sleep, focus; can also contribute to development of psychosis Cannabis/marijuana information: http_s://dimitry.nih. gov/publications/d rugfacts/cannabis- marijuana http_s://www.Zubican/cannabi m-zlr-nbnaiqsu-mar ijuana-adhd/ http_s://www.ju. org/Kutdj-Efkgpx-C llness/Mental-Heal th-Conditions http_s://Browsercast.com.com/depression /xsz-ikdevpars-erh vlqml-zn-cplrsoxno n#treatments http__s://www.nimh .nih.gov/health/to pics/mental-health -medications http__s://www.ju .org/About-Mental- Illness/Treatments /Bnmfeu-Ipwqmw-Mce ications educated on all medications, benefits, side effects and risk, and educated on depression, anxiety, and ADHD, mood d/o and educated on compliance of medications, metabolic and movement d/o education appointment is, continue therapy discussion with patient about course of treatment and patient instructions. education on serotonin syndrome SSRI side effects discussed including but not limited to, gastric upset, nausea, vomiting, diarrhea and/or constipation, weight changes, sexual side effects including loss of libido, increased suicidal thoughts/behaviors in children and young adults, and serotonin syndrome. Second generation antipsychotics (SGAs) have metabolic syndrome issues with weight gain, increase in prolactin, increased waist circumference, increased lipids, and increased glucose. Thus routine monitoring of weight, metabolic labs, etc. is indicated. A general rank ordering of antipsychotics that have the greatest to the least risk of metabolic effects is olanzapine, quetiapine, risperidone, ziprasidone, and aripiprazole. However, weight gain can occur with all of these drugs and considerable variability exists among patients receiving the same drug regarding the risk of metabolic effects. Anti-psychotic agents not only increase the risk of metabolic disorder, they also increase the risk of CVA, akathisia, and movement disorders including EPS or tardive dyskinesia (more common with first generation antipsychotics) and more. educated on importance Therapy and CBT - patient and agreed to therapy obtain labs PCP 2. Generalized anxiety disorder - Vistaril 50 mg twice a day for anxiety and panic as needed - educated on rx (Patient does not tolerate increase dose Wellbutrin) education on all medication refer to therapy and IOP patient will call and check on coverage and cost with a therapy group educated on all medications, benefits, side effects and risk, and educated on depression, anxiety, and ADHD, mood d/o and educated on compliance of medications, metabolic and movement d/o education appointment is, continue therapy discussion with patient about course of treatment and patient instructions. education on serotonin syndrome SSRI side effects discussed including but not limited to, gastric upset, nausea, vomiting, diarrhea and/or constipation, weight changes, sexual side effects including loss of libido, increased suicidal thoughts/behaviors in children and young adults, and serotonin syndrome. Second generation antipsychotics (SGAs) have metabolic syndrome issues with weight gain, increase in prolactin, increased waist circumference, increased lipids, and increased glucose. Thus routine monitoring of weight, metabolic labs, etc. is indicated. A general rank ordering of antipsychotics that have the greatest to the least risk of metabolic effects is olanzapine, quetiapine, risperidone, ziprasidone, and aripiprazole. However, weight gain can occur with all of these drugs and considerable variability exists among patients receiving the same drug regarding the risk of metabolic effects. Anti-psychotic agents not only increase the risk of metabolic disorder, they also increase the risk of CVA, akathisia, and movement disorders including EPS or tardive dyskinesia (more common with first generation antipsychotics) and more. hydroxyzine HCl 50 mg tablet - 3. Insomnia disorder related to another mental disorder - Melatonin 10 mg at night OTC limit caffeine therapy CBT will return to therapy increase Trazodone 100 mg at night- educated on rx monitor B/P- see PCP on rx STAY HYDRATED monitor sleep and hygiene and memory RLSsleep apnea -has cpap not working - not using bipap may plan to have implant- 4. Attention deficit hyperactivity disorder, combined type -ANNA -2 REVIEWED no control substance r/t cannabis use therapy discuss 5. Tobacco use discuss TMS for smoking cessation- pamplet given- patient will consider Smoking Education Do not smoke. Nicotine and other chemicals in cigarettes and cigars can cause lung damage. Ask your healthcare provider for information if you currently smoke and need help to quit. E-cigarettes or smokeless tobacco still contain nicotine. Talk to your healthcare provider before you use these products. education on decrease to stopping nicotine products and stop smoking hotline given 2Quit - Yes [place] Tobacco Quitline Call a Smoking Quitline The [employer] [place]'s Smoking Quitline, (8-096-63A-QUIT) Smokefree.gov, which connects you with your State's Quitline, (2-170-IDWBQED) [facility] Smoking Quitline, (7-278-BUVHGOR) Discussion Notes refer to therapy obtain labs PCP TMS for smoking cessation 06/24/2024 Other obsessive-compuls shabnam disorder (ICD-10 - F42.8) Obsessive-Compu lsive Disorder: Care Instructions material was published 1. Bipolar disorder, most recent episode depression - Vraylar 4.5 mg daily for Bipolar - no s/e helping depression no teresita mood stabilization and teresita- educated on rx monitor B/P discuss and educated on Lamotrigine for depression Lamotrigne 25 mg daily - reported helping monitor for GI issues Lamotrigine lamotrigine has a serious rashes requiring hospitalization and discontinue treatment including Clemente Micah syndrome rare case of toxic epidermal necrolysis and cache related deaths. Incidence with adjunct of epilepsy treatment 0.8% in 2 to 16 years old and 0.3% in adults, bipolar and other mood disorders incidence 0.8% this initial monotherapy and 0.13% as adjunctive treatment. Other risk factor may include concomitant use of valproate acid derivative or exceeding initial lamotrigine does or does as clinician recommendation; most life-threatening rash of occurring first 2 to 8 week of treatment with isolated cases after prolonged treatment; though benign may occur, discontinue treatment at first sign of rash unless clearly not a drug related; TC treatment may not prevent trash from becoming life-threatening or permanently disabling or disfiguring. Comment reaction include, nausea/vomiting, dizziness/vertigo, visual disturbances, somnolence, ataxia, pruritus/rash, pharyngitis, headache, rhinitis, diarrhea, fever, asthenia, insomnia, tremor, abdominal pain, cough, accidental injury, constipation, dysmenorrhea, incoordination, anxiety, seizures, irritability, anorexia, xerostomia, and photosensitivity. Serious reactions include: Rash, severe; Dunaway Micah syndrome; toxic epidermal necrosis; injury edema, hypersensitivity reactions. Including fatal, multiple organ failure to safe fatal, rash with eosinophilia systemic symptoms, DIC, neutropenia, leukopenia, thrombocytopenia, pancytopenia, aplastic anemia, hemolytic anemia, i pancreatitis, hepatic failure, rhabdomyolysis, worsening of suicidal ideation, worsening of depression, cleft lip/palate [first trimester use] DO not Change Cosmetic, perfumes or soap for next 4 weeks. The patient was advice to take lamotrigine as prescribed the patient was instructed not to deviate from the prescription dosages. Stop lamotrigine is the first sign of rash. Patient was insisted to inform office if any of the serious side effect develops. Cannabis use Recommend decrease/stop cannabis use as it can negatively impact mood, motivation, anxiety, sleep, focus/concentratio n/memory (vigilance, elasticity, processing and attention); can also contribute to development of psychosis. http_s://www.nimh. nih.gov/health/top ics/mental-health- medications http_s://www.ju. org/Vdezc-Xscqqy-Y llness/Treatments/ Dpydon-Opmfpt-Zvfe cations Recommend decrease/stop cannabis use as it may be negatively impacting mood, motivation, anxiety, sleep, focus; can also contribute to development of psychosis Cannabis/marijuana information: http_s://dimitry.nih. gov/publications/d rugfacts/cannabis- marijuana http_s://www.Zubican/cannabi c-eiu-vowvviml-mar ijuana-adhd/ http_s://www.ju. org/Ywjii-Wxukjh-M llness/Mental-Heal th-Conditions http_s://psychcent T3 MOTION.com/depression /tqk-bfywgtjnh-nrl utptb-ry-xfwbdnznv n#treatments http__s://www.nim .nih.gov/health/to pics/mental-health -medications http__s://www.ju .org/About-Mental- Illness/Treatments /Aiidht-Ujsmzh-Dlw ications educated on all medications, benefits, side effects and risk, and educated on depression, anxiety, and ADHD, mood d/o and educated on compliance of medications, metabolic and movement d/o education appointment is, continue therapy discussion with patient about course of treatment and patient instructions. education on serotonin syndrome SSRI side effects discussed including but not limited to, gastric upset, nausea, vomiting, diarrhea and/or constipation, weight changes, sexual side effects including loss of libido, increased suicidal thoughts/behaviors in children and young adults, and serotonin syndrome. Second generation antipsychotics (SGAs) have metabolic syndrome issues with weight gain, increase in prolactin, increased waist circumference, increased lipids, and increased glucose. Thus routine monitoring of weight, metabolic labs, etc. is indicated. A general rank ordering of antipsychotics that have the greatest to the least risk of metabolic effects is olanzapine, quetiapine, risperidone, ziprasidone, and aripiprazole. However, weight gain can occur with all of these drugs and considerable variability exists among patients receiving the same drug regarding the risk of metabolic effects. Anti-psychotic agents not only increase the risk of metabolic disorder, they also increase the risk of CVA, akathisia, and movement disorders including EPS or tardive dyskinesia (more common with first generation antipsychotics) and more. educated on importance Therapy and CBT - patient and agreed to therapy obtain labs PCP 2. Generalized anxiety disorder - Vistaril 50 mg twice a day for anxiety and panic as needed - educated on rx (Patient does not tolerate increase dose Wellbutrin) education on all medication refer to therapy and IOP patient will call and check on coverage and cost with a therapy group educated on all medications, benefits, side effects and risk, and educated on depression, anxiety, and ADHD, mood d/o and educated on compliance of medications, metabolic and movement d/o education appointment is, continue therapy discussion with patient about course of treatment and patient instructions. education on serotonin syndrome SSRI side effects discussed including but not limited to, gastric upset, nausea, vomiting, diarrhea and/or constipation, weight changes, sexual side effects including loss of libido, increased suicidal thoughts/behaviors in children and young adults, and serotonin syndrome. Second generation antipsychotics (SGAs) have metabolic syndrome issues with weight gain, increase in prolactin, increased waist circumference, increased lipids, and increased glucose. Thus routine monitoring of weight, metabolic labs, etc. is indicated. A general rank ordering of antipsychotics that have the greatest to the least risk of metabolic effects is olanzapine, quetiapine, risperidone, ziprasidone, and aripiprazole. However, weight gain can occur with all of these drugs and considerable variability exists among patients receiving the same drug regarding the risk of metabolic effects. Anti-psychotic agents not only increase the risk of metabolic disorder, they also increase the risk of CVA, akathisia, and movement disorders including EPS or tardive dyskinesia (more common with first generation antipsychotics) and more. hydroxyzine HCl 50 mg tablet - 3. Insomnia disorder related to another mental disorder - Melatonin 10 mg at night OTC limit caffeine therapy CBT will return to therapy increase Trazodone 100 mg at night- educated on rx monitor B/P- see PCP on rx STAY HYDRATED monitor sleep and hygiene and memory RLSsleep apnea -has cpap not working - not using bipap may plan to have implant- 4. Attention deficit hyperactivity disorder, combined type -ANNA -2 REVIEWED no control substance r/t cannabis use therapy discuss 5. Tobacco use discuss TMS for smoking cessation- pamplet given- patient will consider Smoking Education Do not smoke. Nicotine and other chemicals in cigarettes and cigars can cause lung damage. Ask your healthcare provider for information if you currently smoke and need help to quit. E-cigarettes or smokeless tobacco still contain nicotine. Talk to your healthcare provider before you use these products. education on decrease to stopping nicotine products and stop smoking hotline given Quit - Yes [place] Tobacco Quitline Call a Smoking Quitline The National Cancer [place]'s Smoking Quitline, (5-753-45Z-QUIT) Smokefree.gov, which connects you with your State's Quitline, (7-894-TVSZOXI) [facility] Smoking Quitline, (8-486-TVCYIBT) Discussion Notes refer to therapy obtain labs PCP TMS for smoking cessation 11/13/2023 Other Cariprazine Oral Capsule (CARIPRAZINE - ORAL) material was published, Hydroxyzine Oral Tablet (HYDROXYZINE HYDROCHLORIDE - ORAL) material was published 1. Bipolar disorder, most recent episode depression - Vraylar 4.5 mg daily for Bipolar - improved teresita mood stabilization and teresita- educated on rx monitor B/P educated on all medications, benefits, side effects and risk, and educated on depression, anxiety, and ADHD, mood d/o and educated on compliance of medications, metabolic and movement d/o education appointment is, continue therapy discussion with patient about course of treatment and patient instructions. education on serotonin syndrome SSRI side effects discussed including but not limited to, gastric upset, nausea, vomiting, diarrhea and/or constipation, weight changes, sexual side effects including loss of libido, increased suicidal thoughts/behaviors in children and young adults, and serotonin syndrome. Second generation antipsychotics (SGAs) have metabolic syndrome issues with weight gain, increase in prolactin, increased waist circumference, increased lipids, and increased glucose. Thus routine monitoring of weight, metabolic labs, etc. is indicated. A general rank ordering of antipsychotics that have the greatest to the least risk of metabolic effects is olanzapine, quetiapine, risperidone, ziprasidone, and aripiprazole. However, weight gain can occur with all of these drugs and considerable variability exists among patients receiving the same drug regarding the risk of metabolic effects. Anti-psychotic agents not only increase the risk of metabolic disorder, they also increase the risk of CVA, akathisia, and movement disorders including EPS or tardive dyskinesia (more common with first generation antipsychotics) and more. educated on importance Therapy and CBT - patient and agreed to therapy obtain labs PCP 2. Generalized anxiety disorder - educated to take Vistaril 50 mg three times a day for anxiety and panic as needed - educated on rx (Patient does not tolerate increase dose Wellbutrin) education on all medication refer to therapy and IOP patient will call and check on coverage and cost with a therapy group educated on all medications, benefits, side effects and risk, and educated on depression, anxiety, and ADHD, mood d/o and educated on compliance of medications, metabolic and movement d/o education appointment is, continue therapy discussion with patient about course of treatment and patient instructions. education on serotonin syndrome SSRI side effects discussed including but not limited to, gastric upset, nausea, vomiting, diarrhea and/or constipation, weight changes, sexual side effects including loss of libido, increased suicidal thoughts/behaviors in children and young adults, and serotonin syndrome. Second generation antipsychotics (SGAs) have metabolic syndrome issues with weight gain, increase in prolactin, increased waist circumference, increased lipids, and increased glucose. Thus routine monitoring of weight, metabolic labs, etc. is indicated. A general rank ordering of antipsychotics that have the greatest to the least risk of metabolic effects is olanzapine, quetiapine, risperidone, ziprasidone, and aripiprazole. However, weight gain can occur with all of these drugs and considerable variability exists among patients receiving the same drug regarding the risk of metabolic effects. Anti-psychotic agents not only increase the risk of metabolic disorder, they also increase the risk of CVA, akathisia, and movement disorders including EPS or tardive dyskinesia (more common with first generation antipsychotics) and more. hydroxyzine HCl 50 mg tablet - 3. Insomnia disorder related to another mental disorder - Melatonin 10 mg at night OTC limit caffeine therapy CBT will return to therapy Trazodone 50 mg at night- educated to decrease to 50 mg at night- no refill needed monitor B/P STAY HYDRATED monitor sleep and hygiene and memory RLSsleep apnea -has cpap not working - bipap plans to have implant 4. Attention deficit hyperactivity disorder, combined type -ANNA -2 REVIEWED no control substance r/t cannabis usetherapy 5. Long-term drug therapy - Discussion Notes refer to therapy obtain labs PCP Plan Of Treatment Next Appt Details Provider Name:Chaya Verdugo , 09/23/2024 10:45:00 AM, [address], [address], [place], [address], Insurance Providers Payer Name Payer Address Payer Phone Subscriber Number Group Number Insured Name Patient Relationship to Insured Coverage Start Date Coverage End Date [facility] Ppo [address] [place] [address] [id number] JUANA KAPLAN Self - patient is the insured Medical (General) History Medical History History ICD Code Problems: Attention deficit hyperactivit y disorder Attention deficit hyperactivity disorder , combined type Bipolar disorder, most recent episode de pression Cannabis dependence Chronic post-traumatic stress disorder Edema of foot Generalized anxiety disorder Insomnia disorder related to another men jose disorder Long-term drug therapy Moderate mixed bipolar I disorder Obsessive-compulsive disorder Severe recurrent major depression Tobacco user , Surgical History Surgery Date(Month/Year) Cholecystectomy (64615943) Removal of gallbladder (71479) Removal of ovary(s) (25300) Tonsilectomy/adenoids Hysterectomy/revise vagina (18544)
--- OUTSIDE RECORDS SUMMARY | 2024-08-13 13:08 | XMS_ITS | CONTINUITY OF CARE DOCUMENT ---
Author Name everton toscano Address Unknown Organization [facility] Address [address] [place] [address] Phone [phone] Care Team Providers Care Application Project Leader Name Role Phone Raul SYKES, Marian Unavailable LAURA MONTANA MD Unavailable LAURA MONTANA MD Unavailable [phone] PROBLEMS Condition Status Date Provider Notes Fatigue active Marian Carter MD SHANE, not using cpap completed - Quan Peter Dizziness active Marian Carter MD Hypotension active Marian Carter MD Syncope active Marian Carter MD Cardiology examination active Marian Carter MD Chest pain--nl stress nuc, e cho nl ef, DD, 08/2022 active Marian Carter MD Obesity active Marian Carter MD Pre-diabetes active Marian Carter MD GERD active Marian Carter MD Depression active Marian Carter MD Postmenopausal state s/p hysterectomy active Marian Carter MD Hyperlipidemia active Marian Carter MD Hypothyroidism active Marian Carter MD HTN essential pre eclampsia active Marian valencia MD Tobacco abuse--quit active Marian Carter MD Sleep apnea, intolerant to cpap active Quan Peter Shortness of breath--calcium score 349, 06/2022 active Marian Carter MD ENCOUNTERS Date Type Provider Location Encounter Diag nosis 06/28 - 06/28 In-person encounter Office Visit Marian Carter MD [facility] Sleep apnea, intolerant to cpapOSA, not using cpap 12/28 - 12/28 In-person encounter Office Visit Marian Carter MD [facility] Fatigue 11/02 - 11/02 In-person encounter Office Visit Marian Carter MD [facility] Chest pain--nl stress nuc, echo nl ef, D D, ardiology examinationSyncopeHypotensionDizziness 07/14 - 07/14 In-person encounter Office Visit Marian Carter MD [facility] Shortness of breath--calcium score 349, 06/2022Tobacco abuse--quitChest pain--nl stress nuc, echo nl ef, DD, 08/2022 - 03/03 In-person encounter Office Visit Marian Carter MD [facility] Sleep apnea, intolerant to cpap 02/09 - 02/09 In-person encounter Office Visit Marian Carter MD [facility] Shortness of breath--calcium score 349, 06/2022Sleep apnea, intolerant to cpapTobacco abuse--quitHTN essential pre eclampsiaHypothyroidismHyperlipidemiaPostmenopausal state s/p hysterectomyDepressionGERDPre-diabetesObesity VITAL SIGNS Date Observation Value Provider Body Mass Index (Ratio) 31.01 kg/m2 Jose Carter MD blood pressure, diastolic 105 mm[Hg] Jonathon Arredondo blood pressure, systolic 137 mm[Hg] Kay Arredondo oxygen saturation, oximetry 95 % Jamila Arredondo pulse rate 83 /min Jamila gomes blood pressure, cuff size regular Br xavier Arredondo weight E&M 198 [lb_av] Jamila gomes height E&M 67 [in_i] Jamila gomes Body Mass Index (Ratio) 28.66 kg/m2 Jose Carter MD blood pressure, cuff size regular Ke rri Gruenenfelder blood pressure, diastolic 80 mm[Hg] Phil rri Birduenenfelder blood pressure, systolic 136 mm[Hg] Melina ri Еленаelder oxygen saturation, oximetry 96 % Eunice Еленаelder respiratory rate E&M 12 /min Eunice G ruenenfelder pulse rate 94 /min Eunice Christiansene lder weight E&M 183 [lb_av] Eunice Еленаe er height E&M 67 [in_i] Eunice [facility] Body Mass Index (Ratio) 28.66 kg/m2 Jose Carter MD pulse rate 80 /min Virginia Gallegos blood pressure, cuff size regular Ta bitverena Gallegos blood pressure, diastolic 84 mm[Hg] Ta bitha Gallegos blood pressure, systolic 118 mm[Hg] Tab itha Gallegos oxygen saturation, oximetry 98 % Virginia Gallegos weight E&M 183 [lb_av] Virginia Gallegos respiratory rate E&M 12 /min Virginia Gallegos height E&M 67 [in_i] Virginia Gallegos Body Mass Index (Ratio) 32.89 kg/m2 Jose Carter MD blood pressure, diastolic 88 mm[Hg] Li nkLogdiana blood pressure, systolic 117 mm[Hg] Katharina kLogdiana blood pressure, diastolic 88 mm[Hg] Merissa Kaba blood pressure, systolic 117 mm[Hg] Anette Kaba oxygen saturation, oximetry 98 % Josie Kaba pulse rate 82 /min Josie Sesar blood pressure, cuff size large An devin Sesar weight E&M 210 [lb_av] Josie Sesar height E&M 67 [in_i] Josie Sesar Body Mass Index (Ratio) 32.10 kg/m2 Jose Carter MD blood pressure, diastolic 78 mm[Hg] [facility], systolic 110 mm[Hg] Ana Cristina burger [place] oxygen saturation, oximetry 98 % [facility] respiratory rate E&M 16 /min [facility] pulse rate 79 /min [facility] weight E&M 205 [lb_av] [facility] blood pressure, resting Yes Kill [facility] height E&M 67 [in_i] [facility] Body Mass Index (Ratio) 32.42 kg/m2 Jose Carter MD blood pressure, cuff size regular Ke sulyi Светлана blood pressure, diastolic 85 mm[Hg] Ke rri Светлана blood pressure, systolic 123 mm[Hg] Melina Sotomayor oxygen saturation, oximetry 98 % Eunice Sotomayor respiratory rate E&M 18 /min Eunice king pulse rate 103 /min Eunice saleher weight E&M 207 [lb_av] Eunice saleher height E&M 67 [in_i] Eunice saleher ALLERGIES Allergy Name Onset Date Reaction Criticality Status SIMVASTATIN High Criticality active CRESTOR High Criticality active LIPITOR High Criticality active HISTORY OF MEDICATION USE Medication Status Instructions Dates Provider Indications Com keny VelazquezClick 140 mg/mL pen injector active USE ONE INJECTION SUBCUTANEOUSLY EVERY TWO WEEKS Quan Peter estradiol 0.0375 mg/24 hr patch weekly active Marian Carter MD estradiol 0.0375 mg/24 hr patch weekly active Apply 1 patch to skin once a week Chadwick Cain MD Ozempic 1 mg/dose (4 mg/3 mL) pen injector active Quan Peter Vraylar 4.5 mg capsule active Quan Peter amlodipine 2.5 mg tablet active Take 1 tablet by mouth twice a day Quan Peter amlodipine 2.5 mg tablet completed twice a day - Quan Peter folic acid 1 mg tablet active Quan Peter Nexletol 180 mg tablet active Take 1 tablet by mouth once a day Ivet Pierson bupropion HCl 150 mg tablet extended release 24 hr completed - Quan Peter famotidine 40 mg tablet completed - Quan Peter ezetimibe 10 mg tablet active Quan Peter citalopram 40 mg tablet completed - Quan Peter levothyroxine 112 mcg tablet active Quan Peter cetirizine 10 mg tablet active TAKE 1 TABLET BY MOUTH EVERY DAY Quan Peter omeprazole 40 mg capsule,delayed release(DR/EC) active Quan Peter lisinopril-hydroc hlorothiazide 20-12.5 mg tablet completed - Quan Peter lamotrigine 150 mg tablet completed - Quan Peter albuterol sulfate 90 mcg/actuation HFA aerosol inhaler completed - Quan Peter atorvastatin 20 mg tablet active 5 days a week Quan Peter Zetia 10 mg tablet completed 1 tablet once a day - Quan Peter EstroGel 1.25 gram/actuation gel in metered-dose pump completed once a day - Quan Peter PROAIR HFA 108 completed 2 puff every fou r to six hours - Quan Shellzai albuterol sulfate (bulk) powder completed as needed - Quan Sulemanritesh Symbicort 160-4.5 mcg/actuation HFA aerosol inhaler completed 1 puff twice a day - Quan Kuldeepleora alprazolam 0.25 mg tablet completed as needed - Quan Kuldeepleora Celexa 20 mg tablet completed once a day - Quan Sulemanritesh Synthroid 100 mcg tablet completed once a day - Quan Kuldeepleora omeprazole 40 mg capsule,delayed release(DR/EC) completed once a day - Quan Kuldeepleora tramadol 50 mg tablet completed as directed - Quan Kuldeepleora lisinopril-hydroc hlorothiazide 10-12.5 mg tablet completed Take 1 once a day - Quan Hernandezsy SOCIAL HISTORY Date Observation Value Provider smoking, year quit 2016 Quan Curran [facility] number of years as a smoker 30 a Quan Peter smoking history, tot al pack/day 1.5 ppd Uqanandrew Hernandez cigarette use yes Quan Hernandezsy smoking status Former smoker Quan Hernandez i smoking, year quit 2016 Quan Curran [facility] number of years as a smoker 30 a Quan Hernandezsy smoking history, tot al pack/day 1.5 ppd Quan Hernandezsy cigarette use yes Quan Hernandezsy smoking status Former smoker Quan Hernandez i smoking, year quit 2016 Quan [facility]ran [facility] number of years as a smoker 30 a Quan Hernandezsy smoking history, tot al pack/day 1.5 ppd Quan Hernandezi cigarette use yes Quan Hernandezi smoking status Former smoker Quan Hernandez i smoking, year quit 2016 Josie Vikram iams number of years as a smoker 30 a Josie Kaba smoking history, tot al pack/day 1.5 ppd Josie Kaba cigarette use yes Josie Kaba smoking status Former smoker Josie gomes social history reviewed E&M revi ewed - no changes required Quan Peter social history reviewed E&M revi ewed - no changes required Marian Carter MD number of grandchildren Marian Avalos tova Kendall smoking, year quit 2016 Michelle guerra number of years as a smoker 30 a Michelle Betheaam smoking history, tot al pack/day 1.5 ppd Michelle Kendall cigarette use yes Michelle Betheaam smoking status Former smoker Michelle Bethea am social history reviewed E&M revi ewed - no changes required Marian Carter MD number of years as a smoker 30 a Eunice Sotomayor smoking history, tot al pack/day 1.5 ppd Eunice Sotomayor smoking, year quit 2016 Eunice capone cigarette use yes Eunice walsh smoking status Former smoker Eunice Pangvictor m mathur FAMILY HISTORY Family Member Condition Mother Family History of Hy pertension: Mother Family History of Di abetes: Mother Family History of Co ngestive Heart Failure: Father Family History of Hy pertension: Father Family History of Hy perlipidemia: Mother Family History of Hy pertension: Mother Family History of Hy perlipidemia: Mother Family History of Di abetes: INSURANCE PROVIDERS Payer name Policy type / Coverage type [place] [employer] ID [facility] [id number] ADVANCE DIRECTIVES Name Date DISCUSSED - NO DECISION MADE TREATMENT PLAN Date Name Performer [id number],S, Quan Hernandez i [id number],S, Quan Hernandez i [id number],S, Quan Hernandez i [id number],S, Quan Hernandez i [id number],S, Quan Hernandez i Cardiology: H er updated medication list for this problem includes: Atorvastatin 20 Mg Tablet (Atorvastatin) ..... 5 days a week Repatha Sureclick 140 Mg/ml Pen Injector (Evolocumab) ..... Use one injection subcutaneously every two weeks Nexletol 180 Mg Tablet (Bempedoic acid) ..... Take 1 tablet by mouth once a day Ezetimibe 10 Mg Tablet (Ezetimibe) Marian Carter MD Cardiology:This visi t has been a part of the consistent, comprehensive, and ongoing management of the chronic medical condition(s) listed above for the patient. Her updated medication list for this problem includes: Amlodipine 2.5 Mg Tablet (Amlodipine) ..... Take 1 tablet by mouth twice a day BP today: 137/105 P rior BP: 136/80 (12/29/2023) Marian Carter MD Cardiology Marian Carter MD Cardiology: H er updated medication list for this problem includes: Amlodipine 2.5 Mg Tablet (Amlodipine) ..... Take 1 tablet by mouth twice a day Marian Carter MD Cardiology Quan Peter Cardiology: H er updated medication list for this problem includes: Amlodipine 2.5 Mg Tablet (Amlodipine) ..... Take 1 tablet by mouth twice a day Quan Peter Cardiology: B P today: 136/80 P rior BP: 118/84 (11/03/2023) Her updated medication list for this problem includes: Amlodipine 2.5 Mg Tablet (Amlodipine) ..... Take 1 tablet by mouth twice a day [facility] Cardiology [facility] Cardiology [facility] Cardiology: H er updated medication list for this problem includes: Levothyroxine 112 Mcg Tablet (Levothyroxine) [facility] Cardiology [facility] Cardiology- ready to sign: O rders: C arotid Duplex Bilateral (CPT-30134) M onitor - Telemetry (Mobile Cardiac) (CPT-34450) Her updated medication list for this problem includes: Amlodipine 2.5 Mg Tablet (Amlodipine) ..... Take 1 tablet by mouth twice a day [facility] Cardiology- ready tosign [facility] Cardiology- ready to sign: H er updated medication list for this problem includes: Nexletol 180 Mg Tablet (Bempedoic acid) ..... Take 1 tablet by mouth once a day Ezetimibe 10 Mg Tablet (Ezetimibe) Atorvastatin 20 Mg Tablet (Atorvastatin) ..... Every other day [facility] Cardiology- ready to sign: H er updated medication list for this problem includes: Amlodipine 2.5 Mg Tablet (Amlodipine) ..... Take 1 tablet by mouth twice a day BP today: 118/84 P rior BP: 117/88 (07/14/2022) [facility] Cardiology- ready tosign [facility] Cardiology- ready to sign: Her updated medication list for this problem includes: Amlodipine 2.5 Mg Tablet (Amlodipine) ..... Take 1 tablet by mouth twice a day [facility] Cardiology- ready tosign [facility] Cardiology- ready to sign: O rders: C arotid Duplex Bilateral (CPT-98425) M onitor - Telemetry (Mobile Cardiac) (CPT-72607) [facility] Cardiology [facility] Cardiology Quan Ahmedzai Cardiology Quan Lightmedzasy Cardiology Quan Peter Cardiology Quan Peter Cardiology Marian Carter MD Cardiology Marian Carter MD Cardiology Marian Carter MD Cardiology Marian Carter MD Cardiology Marian Carter MD Date Name PROBNP, N TERMINAL TSH, free T4, total T3 HEMOGLOBIN A1c CBC (INCLUDES DIFF/P LT) LIPID PANEL COMPREHENSIVE METABO LIC PANEL, W/EGFR Monitor - Telemetry (Mobile Cardiac) Carotid Duplex Bilat eral LIPID PANEL Stress Regadenoson CT, Coronary Calcium Score CT, Coronary Calcium Score HISTORY OF PROCEDURES Procedure Date Procedure Name Provider Procedure Notes S tatus Complex e/m visit add on Marian Carter MD completed Complex e/m visit add on Marian Carter MD completed Complex e/m visit add on Marian Carter MD completed EKG Marian Carter MD completed EKG Marian Carter MD completed CT- Coronary CA score Marian Carter MD completed SNOMED-CT: 363169425 [id number] Current Medications Documented Marian Carter MD completed CT- Coronary CA score Marian Carter MD completed SNOMED-CT: 90586102 Physical Exam, Performed: Pulse Exam of Foot Marian Carter MD completed SNOMED-CT: [id number] Physical Exam, Performed: Pulse Exam of Foot Marian Carter MD completed EKG Marian Carter MD completed SNOMED-CT: [id number] Current Medications Documented Marian Carter MD completed
--- OUTSIDE RECORDS SUMMARY | 2024-08-13 13:09 | XMS_ITS | Data Portability ---
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 x2 weeks hyperlipidemia diabetes obesity hypertension discussed she has good support system is here her bereavement process appears to be appropriate. She will see me back in 3 months [email or web address] Not available 05/13/2024 21:14:51 06/02/2024 06/02/2024 ofloxacin ear drops on the left call if not improved keep regular appointment [email or web address] Not available 06/12/2024 21:19:13 08/05/2024 08/05/2024 UA with micro healthy lifestyle care instructions atorvastatin 20 mg half tablet daily for pre screen looks good then she will be cleared for surgery from my standpoint consider Ozempic after her surgery we will not start it before obviously because they would have to stop it right away because of the anesthesia concerns [email or web address] Not available 08/05/2024 16:33:47 Plan of Treatment Reminders Order Date Submit Date Provider Last Modified By Organization Details Last Modified Time Details Appointments ANY 15 2024 09:00A M Laura Dick MD Not available Not available Not available Lab urinalysi s complete, reflex culture 2024 025 [facility], [address], [place], [address], 08/06/2024 09:37:04 albumin/c reatinine , mass ratio, urine 2024 025 [facility], [address], [place], [address], 05/14/2024 09:12:30 HbA1c (hemoglob in A1c), blood 2024 025 [place] [facility], [address], [place], [address], 05/14/2024 09:12:34 CBC w/ auto diff 2024 025 [facility], [address], [place], [address], 05/14/2024 09:12:35 lipid panel, serum 2024 025 [place] [facility], [address], [place], [address], 05/14/2024 09:12:31 CMP, serum or plasma 2024 025 [place] [facility], [address], [place], [address], 05/14/2024 09:12:33 vitamin B12 + folate, serum or blood 2023 024 [facility], [address], [place], [address], 01/16/2024 10:14:13 Referral None recorded. Procedures None recorded. Surgeries None recorded. Imaging None recorded. Medication Orders atorvasta tin 20 mg tablet [address]/Pharmacy #[id number], [address], [place], [address], 08/05/2024 14:27:45 ofloxacin 0.3 % ear drops [address]/Pharmacy #[id number], [address], [place], [address], 06/02/2024 17:23:35 OneTouch Verio test strips [address]/Pharmacy #[id number], [address], [place], [address], 05/13/2024 14:01:31 mupirocin 2 % topical ointment [address]/Pharmacy #[id number], [address], [place], [address], 05/13/2024 14:01:31 Ozempic 2 mg/dose (8 mg/3 mL) subcutane ous pen injector [address]/Pharmacy #[id number], [address], [place], [address], 01/15/2024 13:50:29 Norvasc 5 mg tablet [address]/Pharmacy #[id number], [address], [place], [address], 10/09/2023 16:12:09 Patient TargetsNo targets recorded. Patient Instructions Encounter Date Encounter Id Patient Instructions Last Modified By Organization Details Last Modified Time 10/09/2023 [id number] A healthy lifestyle: care instructions [email or web address] Not available 10/09/2023 15:34:53 01/15/2024 [id number] A healthy lifestyle: care instructions [email or web address] Not available 01/15/2024 13:43:55 05/13/2024 [id number] A healthy lifestyle: care instructions [email or web address] Not available 05/13/2024 14:01:31 06/02/2024 [id number] A healthy lifestyle: care instructions [email or web address] Not available 06/02/2024 17:23:35 08/05/2024 [id number] A healthy lifestyle: care instructions [email or web address] Not available 08/05/2024 14:27:45 Reason for Referral None Reported. Results Created Date Observation Date Name Description Value Unit Range Abnormal Flag Note LastModifiedBy Organization Detail LastModifiedTime 12/29/1912/29/2023 HbA1c (hemo globi n A1c), blood A1C 5.5 normal Not Available [address], [address], 01/01/2024 07:15:14 01/15/2001/16/2024 VITAM IN B12 AND FOLAT E vitamin B12 277 pg/mL 232-12 45 Not Available [facility] ([facility]) [address] [facility], [place], [address], 01/16/2024 10:14:13 01/15/2001/16/2024 VITAM IN B12 AND FOLAT E folate (folic acid), serum 13.6 NG/mL >3.0 A serum folat e aylin ntrat ion of less than 3.1 ng/mL is consi dered to repre sent clini sindy defic iency . Not Available [facility] ([facility]) [address] [facility], [place], [address], 01/16/2024 10:14:13 05/13/1905/14/2024 ALBUM IN/CR EATIN INE RATIO ,URIN E creatinine, urine 129.2 mg/dL notest ab. Not Available [facility] ([facility]) [address] [facility], [place], [address], 05/14/2024 09:12:30 05/13/19 25 05/14/2024 ALBUM IN/CR EATIN INE RATIO ,URIN E albumin, urine 6.5 ug/mL notest ab. Not Available [facility] ([facility]) [address] [place], [address], 05/14/2024 09:12:30 05/13/19 25 05/14/2024 ALBUM IN/CR EATIN INE RATIO ,URIN E alb/creat ratio 5 mg/g_ creat 0-29 Audrey l: 0 - 29 Moder ately incre ased: 30 - 300 Sever madison incre ased: >300 Not Available [facility] ([facility]) [address] [place], [address], 05/14/2024 09:12:30 05/13/19 25 05/14/2024 LIPID PANEL cholesterol, total 228 mg/dL 100-19 9 above high normal Not Available [facility] ([facility]) [address] [place], [address], 05/14/2024 09:12:31 05/13/19 25 05/14/2024 LIPID PANEL triglyceride s 198 mg/dL 0-149 above high normal Not Available [facility] ([facility]) [address] [place], [address], 05/14/2024 09:12:31 05/13/19 25 05/14/2024 LIPID PANEL HDL cholesterol 39 mg/dL >39 below low normal Not Available [facility] ([facility]) [address] [place], [address], 05/14/2024 09:12:31 05/13/19 25 05/14/2024 LIPID PANEL VLDL cholesterol sindy 36 mg/dL 5-40 Not Available [facility]) [address] [place], [address], 05/14/2024 09:12:31 05/13/19 25 05/14/2024 LIPID PANEL LDL chol calc (nih) 153 mg/dL 0-99 above high normal Not Available [facility] ([facility]) [address] [place], [address], 05/14/2024 09:12:31 05/13/19 25 05/14/2024 COMP. METAB OLIC PANEL (14) glucose 115 mg/dL 70-99 above high normal Not Available [facility] ([facility]) [address] [place], [address], 05/14/2024 09:12:32 05/13/19 25 05/14/2024 COMP. METAB OLIC PANEL (14) BUN 8 mg/dL 6-24 Not Available [facility] ([facility]) [address] [place], [address], 05/14/2024 09:12:32 05/13/19 25 05/14/2024 COMP. METAB OLIC PANEL (14) creatinine 0.86 mg/dL 0.57-1 .00 Not Available [facility] ([facility]) [address] [place], [address], 05/14/2024 09:12:32 05/13/19 25 05/14/2024 COMP. METAB OLIC PANEL (14) eGFR 82 mL/mi n/1.7 3 >59 Not Available [facility] ([facility]) [address] [place], [address], 05/14/2024 09:12:32 05/13/19 25 05/14/2024 COMP. METAB OLIC PANEL (14) BUN/creatini ne ratio 9 9-23 Not Available [facility] ([facility]) [address] [place], [address], 05/14/2024 09:12:32 05/13/19 25 05/14/2024 COMP. METAB OLIC PANEL (14) sodium 141 mmol/ L 134-14 4 Not Available [facility] ([facility]) [address] [place], [address], 05/14/2024 09:12:32 05/13/19 25 05/14/2024 COMP. METAB OLIC PANEL (14) potassium 3.8 mmol/ L 3.5-5. 2 Not Available [facility] ([facility]) [address] [place], [address], 05/14/2024 09:12:32 05/13/19 25 05/14/2024 COMP. METAB OLIC PANEL (14) chloride 104 mmol/ L 96-106 Not Available [facility] ([facility]) [address] [place], [address], 05/14/2024 09:12:32 05/13/19 25 05/14/2024 COMP. METAB OLIC PANEL (14) carbon dioxide, total 25 mmol/ L 20-29 Not Available [facility] ([facility]) [address] [place], [address], 05/14/2024 09:12:32 05/13/19 25 05/14/2024 COMP. METAB OLIC PANEL (14) calcium 9.0 mg/dL 8.7-10 .2 Not Available [facility] ([facility]) [address] [place], [address], 05/14/2024 09:12:32 05/13/19 25 05/14/2024 COMP. METAB OLIC PANEL (14) protein, total 6.0 g/dL 6.0-8. 5 Not Available [facility] ([facility]) [address] [place], [address], 05/14/2024 09:12:32 05/13/19 25 05/14/2024 COMP. METAB OLIC PANEL (14) albumin 4.1 g/dL 3.8-4. 9 Not Available [facility] ([facility]) [address] [place], [address], 05/14/2024 09:12:32 05/13/19 25 05/14/2024 COMP. METAB OLIC PANEL (14) globulin, total 1.9 g/dL 1.5-4. 5 Not Available [facility] ([facility]) [address] [facility], [place], [address], 05/14/2024 09:12:32 05/13/19 25 05/14/2024 COMP. METAB OLIC PANEL (14) bilirubin, total <0.2 mg/dL 0.0-1. 2 Not Available [facility] ([facility]) [address] [place], [address], 05/14/2024 09:12:32 05/13/19 25 05/14/2024 COMP. METAB OLIC PANEL (14) alkaline phosphatase 80 IU/L 44-121 Not Available [facility]) [address] [place], [address], 05/14/2024 09:12:32 05/13/19 25 05/14/2024 COMP. METAB OLIC PANEL (14) AST (SGOT) 22 IU/L 0-40 Not Available [facility] ([facility]) [address] [place], [address], 05/14/2024 09:12:32 05/13/19 25 05/14/2024 COMP. METAB OLIC PANEL (14) ALT (SGPT) 20 IU/L 0-32 Not Available [facility] ([facility]) [address] [place], [address], 05/14/2024 09:12:32 05/13/19 25 05/14/2024 HEMOG LOBIN A1C hemoglobin A1C 5.5 % 4.8-5. 6 Predi abete s: 5.7 - 6.4 Diabe quentin: >6.4 Glyce phil contr ol for adult s with diabe quentin: <7.0 Not Available [facility] ([facility]) [address] [place], [address], 05/14/2024 09:12:34 05/13/19 25 05/14/2024 CBC WITH DIFFE RENTI AL/PL ATELE T WBC 9.6 x10e3 /uL 3.4-10 .8 Not Available [facility] ([facility]) [address] [facility], [place], [address], 05/14/2024 09:12:35 05/13/19 25 05/14/2024 CBC WITH DIFFE RENTI AL/PL ATELE T RBC 4.53 x10e6 /uL 3.77-5 .28 Not Available [facility] ([facility]) [address] [facility], [place], [address], 05/14/2024 09:12:35 05/13/19 25 05/14/2024 CBC WITH DIFFE RENTI AL/PL ATELE T hemoglobin 13.5 g/dL 11.1-1 5.9 Not Available [facility] ([facility]) [address] [facility], [place], [address], 05/14/2024 09:12:35 05/13/1905/14/2024 CBC WITH DIFFE RENTI AL/PL ATELE T hematocrit 39.7 % 34.0-4 6.6 Not Available [facility] ([facility]) [address] [facility], [place], [address], 05/14/2024 09:12:35 05/13/1905/14/2024 CBC WITH DIFFE RENTI AL/PL ATELE T MCV 88 fL 79-97 Not Available [facility] ([facility]) [address] [place], [address], 05/14/2024 09:12:35 05/13/19 25 05/14/2024 CBC WITH DIFFE RENTI AL/PL ATELE T MCH 29.8 pg 26.6-3 3.0 Not Available [facility] ([facility]) [address] [place], [address], 05/14/2024 09:12:35 05/13/19 25 05/14/2024 CBC WITH DIFFE RENTI AL/PL ATELE T MCHC 34.0 g/dL 31.5-3 5.7 Not Available [facility] ([facility]) [address] [facility], [place], [address], 05/14/2024 09:12:35 05/13/19 25 05/14/2024 CBC WITH DIFFE RENTI AL/PL ATELE T RDW 13.2 % 11.7-1 5.4 Not Available [facility] ([facility]) [address] [facility], [place], [address], 05/14/2024 09:12:35 05/13/19 25 05/14/2024 CBC WITH DIFFE RENTI AL/PL ATELE T platelets 215 x10e3 /uL 150-45 0 Not Available [facility] ([facility]) [address] [facility], [place], [address], 05/14/2024 09:12:35 05/13/19 25 05/14/2024 CBC WITH DIFFE RENTI AL/PL ATELE T neutrophils 48 % notest ab. Not Available [facility] ([facility]) [address] [facility], [place], [address], 05/14/2024 09:12:35 05/13/19 25 05/14/2024 CBC WITH DIFFE RENTI AL/PL ATELE T lymphs 43 % notest ab. Not Available [facility] ([facility]) [address] [facility], [place], [address], 05/14/2024 09:12:35 05/13/19 25 05/14/2024 CBC WITH DIFFE RENTI AL/PL ATELE T monocytes 5 % notest ab. Not Available [facility] ([facility]) [address] [facility], [place], [address], 05/14/2024 09:12:35 05/13/19 25 05/14/2024 CBC WITH DIFFE RENTI AL/PL ATELE T eos 3 % notest ab. Not Available [facility] ([facility]) [address] [facility], [place], [address], 05/14/2024 09:12:35 05/13/19 25 05/14/2024 CBC WITH DIFFE RENTI AL/PL ATELE T basos 1 % notest ab. Not Available [facility] ([facility]) [address] [facility], [place], [address], 05/14/2024 09:12:35 05/13/19 25 05/14/2024 CBC WITH DIFFE RENTI AL/PL ATELE T neutrophils (absolute) 4.5 x10e3 /uL 1.4-7. 0 Not Available [facility] ([facility]) [address] [facility], [place], [address], 05/14/2024 09:12:35 05/13/19 25 05/14/2024 CBC WITH DIFFE RENTI AL/PL ATELE T lymphs (absolute) 4.1 x10e3 /uL 0.7-3. 1 above high normal Not Available [facility] ([facility]) [address] [place], [address], 05/14/2024 09:12:35 05/13/19 25 05/14/2024 CBC WITH DIFFE RENTI AL/PL ATELE T monocytes(ab solute) 0.5 x10e3 /uL 0.1-0. 9 Not Available [facility] ([facility]) [address] [place], [address], 05/14/2024 09:12:35 05/13/19 25 05/14/2024 CBC WITH DIFFE RENTI AL/PL ATELE T eos (absolute) 0.3 x10e3 /uL 0.0-0. 4 Not Available [facility] ([facility]) [address] [place], [address], 05/14/2024 09:12:35 05/13/19 25 05/14/2024 CBC WITH DIFFE RENTI AL/PL ATELE T baso (absolute) 0.1 x10e3 /uL 0.0-0. 2 Not Available [facility] ([facility]) [address] [facility], [place], [address], 05/14/2024 09:12:35 05/13/19 25 05/14/2024 CBC WITH DIFFE RENTI AL/PL ATELE T immature granulocytes 0 % notest ab. Not Available [facility] ([facility]) [address] [facility], [place], [address], 05/14/2024 09:12:35 05/13/19 25 05/14/2024 CBC WITH DIFFE RENTI AL/PL ATELE T immature grans (abs) 0.0 x10e3 /uL 0.0-0. 1 Not Available [facility] ([facility]) [address] [facility], [place], [address], 05/14/2024 09:12:35 08/06/19 25 08/06/2024 MICRO SCOPI C EXAMI NATIO N WBC None seen /hpf 0-5 Not Available [facility] ([facility]) [address] [facility], [place], [address], 08/06/2024 09:37:03 08/06/19 25 08/06/2024 MICRO SCOPI C EXAMI NATIO N RBC None seen /hpf 0-2 Not Available [facility] ([facility]) [address] [facility], [place], [address], 08/06/2024 09:37:03 08/06/19 25 08/06/2024 MICRO SCOPI C EXAMI NATIO N epithelial cells (non renal) 0-10 /hpf 0-10 Not Available [facility] ([facility]) [address] [facility], [place], [address], 08/06/2024 09:37:03 08/06/19 25 08/06/2024 MICRO SCOPI C EXAMI NATIO N casts None seen /lpf nonese en Not Available [facility] ([facility]) [address] [facility], [place], [address], 08/06/2024 09:37:03 08/06/1908/06/2024 MICRO SCOPI C EXAMI NATIO N crystals Presen t n/a abnormal Not Available [facility] ([facility]) [address] [facility], [place], [address], 08/06/2024 09:37:03 08/06/1908/06/2024 MICRO SCOPI C EXAMI NATIO N crystal type Calciu m Oxalat e Not Available [facility] ([facility]) [address] [facility], [place], [address], 08/06/2024 09:37:03 08/06/1908/06/2024 MICRO SCOPI C EXAMI NATIO N bacteria None seen nonese en/few Not Available [facility] ([facility]) [address] [place], [address], 08/06/2024 09:37:03 08/06/1908/06/2024 UA/M W/RFL X CULTU RE ROUTI NE specific gravity 1.024 1.005- 1.030 Not Available [facility] ([facility]) [address] [place], [address], 08/06/2024 09:37:04 08/06/1908/06/2024 UA/M W/RFL X CULTU RE, ROUTI NE pH 5.5 5.0-7. 5 Not Available [facility] ([facility]) [address] [place], [address], 08/06/2024 09:37:04 08/06/19 25 08/06/2024 UA/M W/RFL X CULTU RE, ROUTI NE urine-color YELLOW yellow Not Available [facility] ([facility]) [address] [place], [address], 08/06/2024 09:37:04 08/06/19 25 08/06/2024 UA/M W/RFL X CULTU RE, ROUTI NE appearance TURBID clear abnormal Not Available [facility] ([facility]) [address] [place], [address], 08/06/2024 09:37:04 08/06/19 25 08/06/2024 UA/M W/RFL X CULTU RE, ROUTI NE WBC esterase NEGATI VE negati ve Not Available [facility] ([facility]) [address] [place], [address], 08/06/2024 09:37:04 08/06/19 25 08/06/2024 UA/M W/RFL X CULTU RE, ROUTI NE protein TRACE negati ve/tra ce Not Available [facility] ([facility]) [address] [place], [address], 08/06/2024 09:37:04 08/06/19 25 08/06/2024 UA/M W/RFL X CULTU RE, ROUTI NE glucose NEGATI VE negati ve Not Available [facility] ([facility]) [address] [place], [address], 08/06/2024 09:37:04 08/06/19 25 08/06/2024 UA/M W/RFL X CULTU RE, ROUTI NE ketones NEGATI VE negati ve Not Available [facility] ([facility]) [address] [place], [address], 08/06/2024 09:37:04 08/06/19 25 08/06/2024 UA/M W/RFL X CULTU RE, ROUTI NE occult blood NEGATI VE negati ve Not Available [facility] ([facility]) [address] [facility], [place], [address], 08/06/2024 09:37:04 08/06/19 25 08/06/2024 UA/M W/RFL X CULTU RE, ROUTI NE bilirubin NEGATI VE negati ve Not Available [facility] ([facility]) [address] [facility], [place], [address], 08/06/2024 09:37:04 08/06/19 25 08/06/2024 UA/M W/RFL X CULTU RE, ROUTI NE urobilinogen ,semi-qn 0.2 mg/dL 0.2-1. 0 Not Available [facility] ([facility]) [address] [facility], [place], [address], 08/06/2024 09:37:04 08/06/19 25 08/06/2024 UA/M W/RFL X CULTU RE, ROUTI NE nitrite, urine NEGATI VE negati ve Not Available [facility] ([facility]) [address] [facility], [place], [address], 08/06/2024 09:37:04 08/06/19 25 08/06/2024 UA/M W/RFL X CULTU RE, ROUTI NE microscopic examination COMMEN T Micro scopi c follo ws if indic ated. Not Available [facility] ([facility]) [address] [facility], [place], [address], 08/06/2024 09:37:04 08/06/19 25 08/06/2024 UA/M W/RFL X CULTU RE, ROUTI NE microscopic examination SEE BELOW: Micro scopi c was indic ated and was perfo rmed. Not Available [facility] ([facility]) [address] [place], [address], 08/06/2024 09:37:04 08/06/19 25 08/06/2024 UA/M W/RFL X CULTU RE, ROUTI NE urinalysis reflex COMMEN T This speci men will not refle x to a Urine Cultu re. Not Available [facility] ([facility]) [address], [place], [address], 08/06/2024 09:37:04 12/04/19 24 12/04/2023 US, duple x, carot id arter y No observ ation record ed. [facility] [address], [place], [address], 12/08/2023 09:40:23 02/17/20 24 02/17/2024 XR, cervi sindy spine No observ ation record ed. [facility] [place] [address] [place], [address], 02/18/2024 22:26:33 02/19/20 24 02/17/2024 XR, thora cic spine No observ ation record ed. [email or web address] [facility] [place] [address] [place], [address], 02/22/2024 21:36:25 Result Notes None recorded. Problems Name Problem SNOMED Code Status Onset Date Resolution Date Notes Provider Name and Address Organization Details Recorded Time Low back pain 312519139 Active 2023 Laura Dick MD Attn: Anegla tadeo,[address] [facility], [place], [address], [facility] - [facility] 4 10:40:31 Pain of left elbow joint [id number] 9104 Active 2023 Laura Dick MD Attn: Angela g,[address] [facility], [place], [address], [place] - [facility] 4 10:40:33 Hyperlipide adrianna 88548888 Active 2023 Laura Dick MD Attn: Angela g,[address] [facility], [place], [address], [facility] - [facility] 4 10:40:34 Type 2 diabetes mellitus 09912081 Active 2023 Patricia Harrell MA null, [place] - [facility] 4 12:57:34 Screening mammography Active 2023 Patricia Har[place], [place] [facility] 4 12:57:36 Thoracic back pain 325414947 Active 2023 Patricia Har[place], [place] [facility] 4 12:57:38 Fatigue 18179178 Active 2023 Patricia Har[place], [place] [facility] 4 12:57:39 Essential hypertensio n 86246956 Active 2023 Patricia Har[place] null, [place] [facility] 4 12:48:35 Hypothyroid ism 64092945 Active 2024 Laura Dick MD Attn: Angela shwetha,[address] [facility], [place], [address], [facility] - [facility] 5 21:14:29 Problem Notes None recorded. Procedures Surgical History Date Name Laterality Status Provider Name and Address Organization Details Recorded Time 04/13/19 02 Total hysterectomy completed Julianne Romero [place] [facility] 06/02/2024 16:12:33 cholecystectomy completed Cathie Patricia [place] - [facility] 06/12/2023 10:36:57 Imaging Results Imaging Date Name Status LastModified by Organiz ation Details LastModified Time 12/04/2023 US, duplex, carotid artery completed [facility] [address], [place], [address], 12/08/2023 09:40:23 02/17/2024 XR, cervical spine completed [address] [place], [address], 02/18/2024 22:26:33 02/17/2024 XR, thoracic spine completed [email or web address] [facility] [place] [address] [place], [address], 02/22/2024 21:36:25 Procedure Notes None recorded. Medical Equipment None Reported. Allergies No known drug allergies Medications Name Sig Start Date Stop Date Status Note LastModified by Organization Details LastModified Time atorvastati n 40 mg tablet TAKE 1 TABLET BY MOUTH EVERY DAY 06/11 completed Not Available Not Available Not Available lamotrigine 150 mg tablet TAKE 1 TABLET BY MOUTH EVERYDAY AT BEDTIME 06/11 completed Not Available Not Available Not Available metformin 500 mg tablet TAKE 1 TABLET BY MOUTH TWICE A DAY 06/11 completed Not Available Not Available Not Available nystatin 100,000 unit/mL oral suspension SWISH AND SWALLOW 5ML THREE TIMES DAILY X 1WK 06/11 completed Not Available Not Available Not Available prednisone 10 mg tablet TAKE 1 TABLET BY MOUTH TWICE A DAY 10/08 completed Not Available Not Available Not Available atorvastati n 20 mg tablet TAKE 1/2 TABLET BY MOUTH ONCE EVERY OTHER DAY 2024 active Not Available Not Available Not Avai lable citalopram 40 mg tablet TAKE 1 TABLET BY MOUTH EVERY DAY IN THE MORNING 06/11 completed Not Available Not Available Not Available BD Luer-Yuko Syringe 3 mL 25 x 5/8 USE DIRECTED active Not Available Not Available No t Available trazodone 50 mg tablet TAKE 1 TABLET BY MOUTH EVERYDAY AT BEDTIME active Not Available Not Available No t Available lisinopril 20 mg-hydrochl orothiazide 12.5 mg tablet TAKE 1 TABLET BY MOUTH EVERY DAY 05/13 completed Not Available Not Available Not Available azithromyci n 250 mg tablet TAKE 2 TABLETS BY MOUTH TODAY, THEN TAKE 1 TABLET DAILY FOR 4 DAYS DIRECTED 05/13 completed Not Available Not Available Not Available metronidazo le 0.75 % (37.5 mg/5 gram) vaginal gel INSERT 1 APPLICATO RFUL VAGINALLY EVERY DAY AT BEDTIME X5 DAYS 06/11 completed Not Available Not Available Not Available ondansetron HCl 4 mg tablet TAKE 1 TABLET BEFORE FLIGHT 05/13 completed Not Available Not Available Not Available famotidine 40 mg tablet TAKE 1 TABLET BY MOUTH EVERY DAY active Not Available Not Available No t Available Diflucan 150 mg tablet Take 1 tablet by oral route as directed. 2024 active Not Available Not Available Not Avai lable hydroxyzine HCl 50 mg tablet TAKE 1 TABLET BY MOUTH TWICE A DAY active Not Available Not Available No t Available amlodipine 5 mg tablet TAKE 1 TABLET BY MOUTH EVERY DAY active Not Available Not Available No t Available omeprazole 40 mg capsule,del ayed release TAKE 1 CAPSULE BY MOUTH TWICE A DAY active Not Available Not Available No t Available lamotrigine 25 mg tablet TAKE 1 TABLET BY MOUTH EVERY DAY FOR 90 DAYS active Not Available Not Available No t Available ofloxacin 0.3 % ear drops INSTILL 10 DROPS INTO AFFECTED EAR(S) BY OTIC ROUTE TWICE DAILY X 7DAYS active Not Available Not Available No t Available trazodone 100 mg tablet TAKE 1 TABLET BY MOUTH AT BEDTIME 05/13 completed Not Available Not Available Not Available cyanocobala min (vit B-12) 1,000 mcg/mL injection solution INJECT 1 ML UNDER THE SKIN ONCE WEEKLY X4 WEEKS THEN 1 ML ONCE A MONTH active Not Available Not Available No t Available levothyroxi ne 125 mcg tablet TAKE 1 TABLET BY MOUTH EVERY DAY 02/14 completed Not Available Not Available Not Available diclofenac sodium 75 mg tablet,lucian yed release TAKE 1 TABLET BY MOUTH TWICE A DAY active Not Available Not Available No t Available evening primrose oil capsule Take 1 capsule every day by oral route. active Not Available Not Available No t Available folic acid 1 mg tablet TAKE 1 TABLEY BY MOUTH EVERY DAY active Not Available Not Available No t Available hydroxyzine HCl 25 mg tablet TAKE 1 TABLET 3 TIMES A DAY BY ORAL ROUTE NEEDED FOR 90 DAYS, FOR ANXIETY AND PANIC. 06/11 completed Not Available Not Available Not Available mupirocin 2 % topical ointment APPLY TO NASTRIL TWICE A DAY FOR 2WKS active Not Available Not Available No t Available metformin ER 500 mg tablet,exte nded release 24 hr TAKE 1 TABLET BY MOUTH TWICE A DAY FOR 90 DAYS 10/08 completed Not Available Not Available Not Available levothyroxi ne 112 mcg tablet TAKE 1 TABLET BY MOUTH EVERY DAY active Not Available Not Available No t Available ezetimibe 10 mg tablet TAKE 1 TABLET BY MOUTH EVERY DAY active Not Available Not Available No t Available estradiol 0.0375 mg/24 hr weekly transdermal patch APPLY 1 PATCH TO SKIN ONCE A WEEK active Not Available Not Available No t Available nitrofurant oin monohydrate /macrocryst als 100 mg capsule TAKE 1 CAPSULE BY MOUTH EVERY 12 HOURS FOR 5 DAYS active Not Available Not Available No t Available OneTouch Verio test strips USE TO TEST ONCE DAILY active Not Available Not Available No t Available Repatha SureClick 140 mg/mL subcutaneou s pen injector USE ONE INJECTION SUBCUTANE OUSLY EVERY TWO WEEKS active Not Available Not Available No t Available OneTouch Verio Flex Meter USE DIRECTED TO CHECK SUGARS DAILY 2024 active Not Available Not Available Not Avai lable Vraylar 1.5 mg capsule TAKE 1 CAPSULE BY MOUTH EVERY DAY IN THE MORNING 06/11 completed Not Available Not Available Not Available Vraylar 4.5 mg capsule TAKE 1 CAPSULE BY MOUTH EVERY DAY FOR 90 DAYS active Not Available Not Available No t Available Vraylar 3 mg capsule TAKE 1 CAPSULE EVERY DAY BY ORAL ROUTE IN THE MORNING FOR 30 DAYS, FOR BIPOLAR. 06/11 completed Not Available Not Available Not Available OneTouch Delica Plus Lancet 33 gauge USE TO CHECK BLOOD SUGAR ONCE DAILY 2024 active Not Available Not Available Not Avai lable Nexletol 180 mg tablet TAKE 1 TABLET BY MOUTH EVERY DAY 2024 active Not Available Not Available Not Avai lable Ozempic 1 mg/dose (4 mg/3 mL) subcutaneou s pen injector INJECT 1MG UNDER THE SKIN ONCE WEEKLY X4 WEEKS active Not Available Not Available No t Available Ozempic 2 mg/dose (8 mg/3 mL) subcutaneou s pen injector INJECT 2MG WEEKLY 2024 active Not Available Not Available Not Avai lable Ozempic 0.25 mg or 0.5 mg (2 mg/3 mL) subcutaneou s pen injector INJECT 0.5MG UNDER THE SKIN ONCE WEEKLY X4 WEEKS THEN CHANGE TO 1MG PEN 10/08 completed Not Available Not Available Not Available Vitals Date Recorded Body height Body mass index (BMI) Body weight Heart rate Oxygen saturation Oxygen saturation in Arterial blood by Pulse oximetry Systolic blood pressure Diastolic blood pressure Provider Name and Address Organization Details Last Updated DateTime 4 165.1 cm 31.5 kg/m2 63253.0 4 g 69 /min 99 % 99 % 143 mm[Hg] 93 mm[Hg] George Tavarez [place] - [facility] 4 10:04:10 Date Recorded Body height Body mass index (BMI) Body weight Heart rate Oxygen saturation Oxygen saturation in Arterial blood by Pulse oximetry Systolic blood pressure Diastolic blood pressure Provider Name and Address Organization Details Last Updated DateTime 4 165.1 cm 31.3 kg/m2 89185.7 2 g 82 /min 97 % 97 % 130 mm[Hg] 82 mm[Hg] [facility] 4 11:47:22 Date Recorded Body height Body mass index (BMI) Body weight Heart rate Oxygen saturation Oxygen saturation in Arterial blood by Pulse oximetry Systolic blood pressure Diastolic blood pressure Provider Name and Address Organization Details Last Updated DateTime 5 165.1 cm 31.3 kg/m2 05420.3 7 g 82 /min 97 % 97 % 122 mm[Hg] 82 mm[Hg] [facility] 5 11:05:39 Date Recorded Body height Body mass index (BMI) Body weight Heart rate Oxygen saturation Oxygen saturation in Arterial blood by Pulse oximetry Systolic blood pressure Diastolic blood pressure Provider Name and Address Organization Details Last Updated DateTime 5 165.1 cm 31.3 kg/m2 56109.3 7 g 82 /min 97 % 97 % 118 mm[Hg] 82 mm[Hg] [facility] 5 16:11:43 Date Recorded Body height Body mass index (BMI) Body weight Heart rate Oxygen saturation Oxygen saturation in Arterial blood by Pulse oximetry Systolic blood pressure Diastolic blood pressure Provider Name and Address Organization Details Last Updated DateTime 5 165.1 cm 32.9 kg/m2 94132.5 7 g 50 /min 95 % 95 % 120 mm[Hg] 80 mm[Hg] [facility] 5 12:11:20 Social History Question Answer Notes LastModified by Organizat ion Details LastModified Time Tobacco Smoking Status Current Every Day Smoker TRACY Lino, [facility] 06/12/2023 10:36:23 Do You Have An Advance Directive? No Information not available 10/09/2023 What Is Your Level Of Alcohol Consumption? None Information not available 06/12/2023 Are You Blind Or Do You Have Difficulty Seeing? No Information not available 10/09/2023 What Is Your Level Of Caffeine Consumption? Moderate Information not available 06/12/2023 In The 14 Days Before Symptom Onset, Have You Had Close Contact With A Laboratory-confir med COVID-19 While That Case Was Ill? No Information not available 01/15/2024 In The 14 Days Before Symptom Onset, Have You Had Close Contact With A Person Who Is Under Investigation For COVID-19 While That Person Was Ill? No Information not available 01/15/2024 Have You Been To An Area Known To Be High Risk For COVID-19? No Information not available 01/15/2024 Are You Deaf Or Do You Have Serious Difficulty Hearing? No Information not available 10/09/2023 What Type Of Diet Are You Following? REGULAR Information not available 10/09/2023 Are There Any Guns Present In Your Home? No Information not available 01/15/2024 What Was The Date Of Your Most Recent Tobacco Screening? 08/05/2024 Information not available 08/05/2024 What Is Your Relationship Status? Information not available 10/09/2023 Do You Use Your Seat Belt Or Car Seat Routinely? Yes Information not available 10/09/2023 Do You Have Smoke And Carbon Monoxide Detectors In Your Home? Yes Information not available 01/15/2024 At What Age Did You Start Smoking Tobacco? 11 Information not available 06/12/2023 How Much Tobacco Do You Smoke? 1 PPD Information not available 10/09/2023 Do You Feel Stressed (tense, Restless, Nervous, Or Anxious, Or Unable To Sleep At Night)? [id number] Information not available 10/09/2023 Do You Use Any Illicit Or Recreational Drugs? Yes Marijuanna Information not available 06/12/2023 Do You Use Sunscreen Routinely? Yes Information not available 01/15/2024 Has Tobacco Cessation Counseling Been Provided? Yes Information not available 06/12/2023 On What Date Was Tobacco Cessation Counseling Provided? 08/05/2024 Information not available 08/05/2024 Do You Or Have You Ever Used Any Other Forms Of Tobacco Or Nicotine? No Information not available 06/12/2023 Sex: Female Functional Status Question Answer Note LastModified by Organization D etails LastModified Time Are you able to care for yourself? Yes Information n ot available 10/09/2023 What is your exercise level? None Information not available 10/09/2023 Mental Status None recorded. Family History Relationship Description Onset Age of this Age Resolved Age Notes LastModified by Organization Details LastModified Time Mother Malignant tumor of breast [email or web address] Not available 2023 10:33:40 Mother Diabetes mellitus [email or web address] Not available 2023 10:34:15 Father Hypothyroidi sm [email or web address] Not available 2023 10:34:02 Father Diabetes mellitus [email or web address] Not available 2023 10:34:15 Father Atrial fibrillation [email or web address] Not available 04/2023 10:34:35 Father Hypertensive disorder [email or web address] Not available 2023 10:35:01 Maternal Grandfather Heart disease [email or web address] Not available 2023 10:34:47 Medical History Condition Response Coronary Artery Disease N Atrial Fibrillation N High Blood Pressure Y Thyroid Problems Y Kidney or Bladder Problems N GI Problems Y Depression Y COPD N Blood Clots N Skin Problems N Anemia N Heart Attack (DC) N Anxiety Disorder Y Diabetes Y Muscle, Joint, or Bone Problems N Seizures/Epilepsy N Acid Reflux (GERD) Y Cancer N Stroke N Asthma N Allergies Y High Cholesterol Y Hepatitis N Liver Disease Y Osteoporosis N Heart Failure N Gynecological History Statement/Question Response Current Control Method Hysterectom y Date of LMP Obstetrics History GPAL:G 0 P 0 0 0 0 Immunizations Vaccine Type Date Status Note Provider Nam e and Address Organization Details Recorded Time Influenza, split virus, quadrivalent, preservative 0 completed George Tavarez [place], [place] [facility] 08/07/2023 12:11:07 MMR 6 completed George Tav[place], [place] [facility] 08/07/2023 12:11:07 COVID-19, mRNA, LNP-S, PF, 100 mcg/0.5mL dose or 50 mcg/0.25mL dose 1 completed TRACY [place], [place] [facility] 08/07/2023 12:11:07 COVID-19, mRNA, LNP-S, PF, 100 mcg/0.5mL dose or 50 mcg/0.25mL dose 1 [place] TRACY [place] [facility] 08/07/2023 12:11:07 COVID-19, mRNA, LNP-S, PF, 100 mcg/0.5mL dose or 50 mcg/0.25mL dose 1 [place] TRACY [place] [facility] 08/07/2023 12:11:07 influenza, unspecified formulation 3 completed TRACY [place] [facility] 08/07/2023 12:11:07 influenza, unspecified formulation 2 completed TRACY [place] [facility] 08/07/2023 12:11:07 Influenza, split virus, trivalent, preservative 1 [place] TRACY [place] [facility] 08/07/2023 12:11:07 Td (adult), 2 Lf tetanus toxoid, preservative free, adsorbed 6 [place] TRACY [place] [facility] 08/07/2023 12:11:07 Hep B, adult 7 [place] [facility] 08/07/2023 12:11:07 Hep B, adult 6 [place] [facility] 08/07/2023 12:11:07 Hep A, adult 7 completed [place] [facility] 08/07/2023 12:11:07 Hep A, adult 6 completed [place] [facility] 08/07/2023 12:11:07 Hep A-Hep B 6 [place] TRACY [place] [facility] 08/07/2023 12:11:07 Past Encounters Encounter ID Performer Location Encounter Start Date Encounter Closed Date Diagnosis/Indication Diagnosis SNOMED-CT Code Diagnosis ICD10 Code Diagnosis Note [id number] [facility] [place] [address] [place] [id number] 06/12/2023 10:09:42 06/12/2023 11:03:16 Essential hypertension 69011453 I10 Type 2 noé betes mellitus 23159140 E11.9 Gastroesop hageal reflux disease without esophagitis 727885561 K21.9 Tobacco user 817689359 Z 72.0 Mixed anxi ety and depressive disorder 051542209 F41.8 Hyperlipidemia 69408535 E78.5 [id number] MD Ruthie Kirkpatrick (Adult Med) [address] [place] [address] [id number] 07/24/2023 09:57:58 07/24/2023 10:54:51 Hyperlipidemia 07051456 E78.5 Pain of le ft elbow joint 6974782954 6181563 M25.522 Low back pain 886543051 M54.50 Fatigue 59207726 R53.83 Thoracic back pain 96584 8004 M54.6 Screening mammography 24 715581 Z12.31 Type 2 noé betes mellitus 57656041 E11.9 [id number] MD Ruthie Kirkpatrick (Adult Med) [address] [place] [address] [id number] 08/07/2023 11:46:29 08/07/2023 13:06:59 Low back pain 256227093 M54.50 Thoracic back pain 28067 8004 M54.6 Type 2 noé betes mellitus 20573383 E11.9 [id number] Laura Dick MD [facility] [address] [place] [address] [id number] 10/01/2023 13:59:12 10/01/2023 14:47:36 [id number] MD [facility]ie Kirkpatrick (Adult Med) [address] [place] [address] [id number] 10/09/2023 09:43:39 10/09/2023 10:30:40 Essential hypertension 03924055 I10 Obesity 944470129 E66.8 [id number] Laura Dick MD [facility] (Adult Med) [address] [place] [address] [id number] 01/15/2024 11:33:38 01/15/2024 12:52:44 Obesity 756561553 E66.9 Essential hypertension 06588593 I10 Fatigue 92685415 R53.83 Type 2 noé betes mellitus 90994749 E11.9 Hyperlipidemia 16514924 E78.5 [id number] Laura Dick MD [facility] (Adult Med) [address] [place] [address] [id number] 05/13/2024 10:59:25 05/13/2024 12:08:39 Body mass index 30+ - obesity 376091011 Z68.31 Obesity 626792402 E66.9 Essential hypertension 57183490 I10 Hyperlipidemia 57494056 E78.5 Type 2 noé betes mellitus 15945693 E11.9 Lesion of nasal mucosa 622283803 J34.89 [id number] Laura Dick MD [place] [id number] [facility] [address] [place] [address] 06/02/2024 15:53:40 06/02/2024 17:22:17 Body mass index 30+ - obesity 617904690 Z68.31 Obesity 998650713 E66.9 Rhinitis 59297959 J00 Tinnitus of left ear 058 2266032 106 H93.12 [id number] [facility] [place] [facility] [address] [place] [address] [id number] 08/05/2024 11:32:03 08/05/2024 12:37:10 Body mass index 30+ - obesity 707911133 Z68.32 Obese class I 0682017849 85285 E66.811 Dysuria 61297327 R30.0 Hyperlipidemia 78208166 E78.5 Hypothyroidism 32377853 E03.9 Essential hypertension 67833700 I10 Type 2 noé betes mellitus 73199555 E11.9 Health Concerns Section Related Observation LastModified by Organization Detai ls LastModified Time None Recorded Concern Status LastModified by Organization Details LastModified Time None Recorded Advance Directives Directive N: Payers Encounter Date Sequence Insurance Name Policy Number Policy Cronin Covered Member ID Cronin Member ID Guarantor Name 10/09/2023 1 [place] [id number] Ronal Simmons [id number] Christina Simmons 01/15/2024 1 [place] [id number] Ronal Simmons [id number] Christina Simmons 05/13/2024 1 [place] [id number] Ronal Simmons [id number] Christina Simmons 06/02/2024 1 [place] [id number] Ronal Simmons [id number] Christina Simmons 08/05/2024 1 [place] [id number] Ronal Simmons [id number] Christina Simmons Notes Date Note Type Note Provider Name and Address Organization Details Recorded Time 10/09/2023 text/html Some weight loss with the Ozempic we stopped her lisinopril HCTZ because she was having some low blood pressure readings at home and now pressures drifted up a little bit. Lots of stress dealing with her mother in hospice Laura Dick MD Attn: Accounting, [address] [place], [address], [facility] [place] 10/09/2023 16:13:51 01/15/2024 text/html fatigue caring f or an elderly mother who is on hospice obesity trouble losing weight hyperlipidemia trying to follow a low-fat diet hypertension coming under better control Laura Dick MD Attn: Accounting, [place], [address], [place] [facility] 01/15/2024 14:21:14 05/13/2024 text/html mother in interval history. Dyslipidemia in needs blood work diabetes no polyphagia polydipsia does not take her sugars at home hypertension blood pressure is controlled. She does have lesion left nasal meatus Laura Dick MD Attn: Accounting, [address] [place], [address], [place] [facility] 05/13/2024 21:15:10 06/02/2024 text/html ringing in the l eft ear that is clogged up for a week or so no pain Laura Dick MD Attn: Accounting[address] [facility], [place], [address], [facility] 06/12/2024 21:19:41 08/05/2024 text/html Diabetes no polyphagia polydipsia hypertension her blood pressure good she has not had any headache or dizziness has a little bit of dysuria hypothyroidism has been doing fine time to titrate her atorvastatin slowly no heat or cold intolerance and have surgery on left elbow she has had no chest pain shortness of breath dizzy spells palpitations Laura Dick MD Attn: Accounting[address] [facility], [place], [address], [facility] - [facility] 08/05/2024 16:34:04 OBGyn Episode No OBEpisode recorded.
== END 2024-08-12 12:18 | disposition home or self-care (01) ==
LOC: ANHSURGERY 12:23
PROVIDERS: Anesthesiology; PCP Internal Medicine; Visit Provider Orthopaedic Surgery
DX: M77.12 Lateral epicondylitis, left elbow (principal); E11.9 Type 2 diabetes mellitus without complications; Z01.818 Encounter for other preprocedural examination
CPT/HCPCS: 36415; 80048; 93005

== ENCOUNTER 2024-08-22 00:57 | Day surgery (SDC) | payer BC, SELFPAY ==
[2024-08-09 13:23] VITALS: BMI 32.8
--- NOTE | 2024-08-09 13:32 | SUR.PREOP ---
Report to the Outpatient Waiting Room, entrance under the green pavilion located off [facility], at time 1030 on date 08/22/24. Planned Procedure Time: 1230.? Time changes happen often and if your time is changed the preop area will call you the afternoon before. - You and your visitor will be asked to self-screen and do not enter if you have any COVID symptoms. Please call surgeon if you need to reschedule. - A mask is optional within the hospital at this time. Patients may have clear liquids (water, carbonated beverages, clear teas, apple juice) until 3 hours prior to surgery with a maximum of 20 ounces. - No food from midnight until time of surgery and no smoking, or chewing tobacco (or any form of nicotine). No chewing gum, candy or mints. - Infants may have breast milk until 4 hours before surgery, formula 6 hours prior to surgery. - Children will be allowed to drink immediately following surgery.? If applicable, please bring a bottle or sippy cup to assist with drinking. Juice, water, soda, and popsicles are readily available.? For infants on formula, please bring formula the day of surgery.? Pacifiers are allowed. Take only the following medications with a SIP of water on the morning of surgery: amlodipine, Vraylar, hydroxyzine, lamotrigine, levothyroxine DO NOT STOP ANY OF YOUR OTHER PRESCRIPTION MEDICATIONS PRIOR TO SURGERY EXCEPT THE FOLLOWING Hold all vitamins and supplements for 3 days per anesthesiologist. Medications to discontinue per physician vit D3, Co Q10, folic acid - 3 days prior, omeprazole - hold day of surgery Date to take last dose Please no make-up, nail spanish, hairspray, perfume, deodorant, or body powder the day of surgery.? No jewelry (including any body piercings) or valuables the day of surgery, leave them at home.? Please take a shower or bath the night before, or the morning of, surgery with an antibacterial soap.? Wear comfortable, loose fitting clothing.? Children are encouraged to wear pajamas. - Jewelry must be removed prior to entering the operating room.? Rings and piercings that are not removed may be cut off. - The hospital will not accept responsibility for valuables.? - Please leave all valuables, including medications, at home the day of surgery. If you are going home after surgery, a licensed hazardous materials driver must drive you home.? - NO public transportation without another adult if you receive anesthesia. - We recommend that an adult stay with you for 24 hours following discharge. - We also recommend that you do not drive, make important decision, drink alcoholic beverages, or take any drugs that were not prescribed by your health care provider for at least 24 hours after your discharge time. For Pediatric surgeries, we recommend two adults accompany the child home. Follow any additional instructions given to you from your surgeon. Telephone instructions given to patient and asked if any additional questions and then verbalized understanding. Patient advised to call surgeon office or pre surgery nurse liaison [phone] if any additional questions.
--- NOTE | 2024-08-18 07:30 | PM.IMHP ---
H&P: HPI History of Present Illness Date/Time: 08/18/24 07:30 Chief Complaint: Patient has elbow pain left. She has lateral epicondylitis. She has had significant conservative treatment and unfortunately the pain persist. She has failed non operative treatment like to consider surgical intervention. Review of Systems Musculoskeletal: Musculoskeletal: Reports arthralgias, Reports joint swelling and Reports stiffness PMFSH Past Medical History Medical History Diabetes COVID-19 SHANE (obstructive sleep apnea) Nausea & vomiting Gastroesophageal reflux disease Benign essential hypertension Depression Hypothyroidism Mixed hyperlipidemia Surgical History Surgical History History of cholecystectomy History of tonsillectomy History of hysterectomy Family History Family History Father Hypertension Grandparent Family history of malignant neoplasm Mother Family history of diabetes mellitus in first degree relative Cancer Social History Social History (Updated 07/28/24 @ 12:49 by Shannan Penny CMA) Smoking packs per day: 1 Smoking cigarettes per day: 20.0 Years smoked: 30 Smoking pack-years: 30.00 Smoking status: Current every day smoker Tobacco type: cigarettes Second hand tobacco smoke exposure: Yes Alcohol intake: never Substance use: current Substance use type: marijuana Other substance usage details: medical marijuana Do You Feel Safe in your Home?: Yes Lack of Transportation: No Lack of Food: Never True Current Housing: I Have Housing Concerned About Future Housing: No Difficulty Paying Gas/Electric Bills: No Difficulty Paying for Meds: YES Currently Unemployed: No Education: Associate Degree Difficulty w/ Childcare or Family Care: No Living arrangements: with family Occupation/Education: unemployed Gender identity (if verbalized by the patient): Female Spiritual care concerns: No Meds Home Medications and Allergies Home Medications ?Medication ?Instructions ?Recorded ?Confirmed ?Type melatonin 10 mg capsule 10 mg PO QHS 01/16/21 08/09/24 History famotidine 40 mg tablet See Rx Instructions .Route 04/08/21 08/09/24 Rx .COMPLEX #90 tabs folic acid 1 mg tablet 1 mg PO DAILY #90 tabs 11/21/21 08/09/24 Rx omeprazole 40 mg capsule,delayed 40 mg PO BID #180 caps 02/24/22 08/09/24 Rx release ezetimibe 10 mg tablet See Rx Instructions .Route 06/15/23 08/09/24 Rx .COMPLEX #90 tabs cariprazine 4.5 mg capsule 4.5 mg PO DAILY 08/11/23 08/09/24 History (Day) hydroxyzine HCl 50 mg tablet 50 mg PO BID 08/11/23 08/09/24 History amlodipine 5 mg tablet 5 mg PO DAILY 07/28/24 08/09/24 History atorvastatin 20 mg tablet 10 mg PO .every other day 07/28/24 08/09/24 History cholecalciferol (vitamin D3) 10 10 mcg PO DAILY 07/28/24 08/09/24 History mcg (400 unit) capsule coenzyme Q10 10 mg capsule 10 mg PO ONCE 07/28/24 08/09/24 History estradiol 0.0375 mg/24 hr 1 patch transdermal WEEKLY 07/28/24 08/09/24 History semiweekly transdermal patch (Vivelle-Dot) evolocumab 140 mg/mL subcutaneous 140 mg subcut .every two weeks 07/28/24 08/09/24 History pen injector (Artie Singh) lamotrigine 25 mg tablet 25 mg PO DAILY 07/28/24 08/09/24 History levothyroxine 125 mcg capsule 112 mcg PO DAILY 07/28/24 08/09/24 History trazodone 100 mg tablet 100 mg PO QHS PRN sleep 07/28/24 08/09/24 History Allergies Allergy/AdvReac Type Severity Reaction Status Date / Time No Known Allergies Allergy Verified 08/09/24 13:07 Exam Narrative: On exam she has motion of her LEFT elbow from with the 0-125 degrees. She has good pronation and supination, although she has pain with resisted pronation and wrist flexion. Wrist extension. Neurologically she is intact. She is acutely tender over the lateral epicondylar region. Assessment and Plan Assessment and plan (1) Lateral epicondylitis of left elbow: Code(s): M77.12 - Lateral epicondylitis, left elbow Status: Acute Assessment and Plan: Patient has elbow pain left. She has tenderness over the lateral epicondylar region and pain to palpation manipulation. Neurologically she is grossly intact. She has failed conservative treatment like to consider surgical debridement. I discussed this with her. I discussed risks, benefits, limitations, and alternatives with the patient in detail. She would like to proceed. Will proceed per Her request.
[2024-08-22] VITALS (8 sets, daily range): BP systolic 93–157; BP diastolic 60–86; PULSE 62–106; RESP 14–20; TEMP 36.6–36.7; O2SAT 92–97
--- OUTSIDE RECORDS SUMMARY | 2024-08-22 01:01 | XMS_ITS | CONTINUITY OF CARE DOCUMENT ---
Author Name everton toscano Address Unknown Organization [facility] Address [address] [place] [address] Phone [phone] Care Team Providers Care Duct Layer Helper Name Role Phone Raul SYKES, Marian Unavailable [phone] LAURA MONTANA MD Unavailable [phone] LAURA MONTANA MD Unavailable PROBLEMS Condition Status Date Provider Notes Shortness of breath--calcium score 349, 06/2022 active Marian Carter MD Sleep apnea, intolerant to cpap active Quan Peter Tobacco abuse--quit active Marian Carter MD HTN essential pre eclampsia active Marian valencia MD Hypothyroidism active Marian Carter MD Hyperlipidemia active Marian Carter MD Postmenopausal state s/p hysterectomy active Marian Carter MD Depression active Marian Carter MD GERD active Marian Carter MD Pre-diabetes active Marian Carter MD Obesity active Marian Carter MD Chest pain--nl stress nuc, e cho nl ef, DD, 08/2022 active Marian Carter MD Cardiology examination active Marian Carter MD Syncope active Marian Carter MD Hypotension active Marian Carter MD Dizziness active Marian Carter MD SHANE, not using cpap completed - Quan Peter Fatigue active Marian Carter MD ENCOUNTERS Date Type Provider Location Encounter Diag nosis 06/28 - 06/28 In-person encounter Office Visit Marian Carter MD [facility] Sleep apnea, intolerant to cpapOSA, not using cpap 12/28 - 12/28 In-person encounter Office Visit Marian Carter MD [facility] Fatigue 11/02 - 11/02 In-person encounter Office Visit Marian Carter MD [facility] Chest pain--nl stress nuc, echo nl ef, D D, ardiology examinationSyncopeHypotensionDizziness 07/14 - 07/14 In-person encounter Office Visit Marian Carter MD [facility] Shortness of breath--calcium score 349, 06/2022Tobacco abuse--quitChest pain--nl stress nuc, echo nl ef, DD, 08/2022 - 03/03 In-person encounter Office Visit Marian Carter MD [facility] Sleep apnea, intolerant to cpap 02/09 - 02/09 In-person encounter Office Visit Marian Carter MD [facility] Shortness of breath--calcium score 349, 06/2022Sleep [...] Body Mass Index (Ratio) 28.66 kg/m2 Jose Caretr MD blood pressure, cuff size regular Ke rri Gruenenfelder blood pressure, diastolic 80 mm[Hg] Phil rri Birduenenfelder blood pressure, systolic 136 mm[Hg] Melina ri Еленаelder oxygen saturation, oximetry 96 % Eunice Еленаelder respiratory rate E&M 12 /min Eunice G ruenenfelder pulse rate 94 /min Eunice Christiansene lder weight E&M 183 [lb_av] Eunice Еленаe er height E&M 67 [in_i] Eunice Lennox [facility] Body Mass Index (Ratio) 28.66 kg/m2 Jose [...] MD blood pressure, diastolic 78 mm[Hg] [facility], systolic 110 mm[Hg] Ana Cristina burger [place] oxygen saturation, oximetry 98 % [facility] respiratory rate E&M 16 /min [facility] pulse rate 79 /min [facility] weight E&M 205 [lb_av] [facility] blood pressure, resting Yes Kill [facility] height E&M 67 [in_i] [facility] Body Mass Index (Ratio) 32.42 kg/m2 Jose [...] Provider smoking, year quit 2016 Quan Curran [facility] number of years as a smoker 30 a Quan Peter smoking history, tot al pack/day 1.5 ppd Quanandrew Hernandez cigarette use yes Quan Hernandezsy smoking status Former smoker Quan Hernandez i smoking, year quit 2016 Quan Curran [facility] number of years as a smoker 30 a Quan Hernandezsy smoking history, tot al pack/day 1.5 ppd Quan Hernandezsy cigarette use yes Quan Hernandezsy smoking status Former smoker Quan Hernandez i smoking, year quit 2016 Quan Curran [facility] number of years as a smoker [...] Payer name Policy type / Coverage type [place] [employer] party ID [facility] [id number] ADVANCE DIRECTIVES Name Date DISCUSSED - NO DECISION MADE TREATMENT PLAN Date Name Performer [id number],S, Quan Hernandez i [id number],S, Quan Hernandez i [id number],S, Quan Hernandez i [id number],S, Quan Hernandez i [id number],S, Quan Hernandez i Cardiology: H er updated [...] 1 tablet by mouth twice a day [facility] Cardiology: H er updated medication list for this problem includes: Levothyroxine 112 Mcg Tablet (Levothyroxine) [facility] Card[facility]- ready to sign: O rders: C arotid Duplex Bilateral (CPT-09900) M onitor - Telemetry (Mobile Cardiac) (CPT-13674) Her updated medication list for this problem includes: Amlodipine 2.5 Mg Tablet (Amlodipine) ..... Take 1 tablet by mouth twice a day [facility] Cardiology- ready tosign [facility]- ready to sign: H er updated medication list for this problem includes: Nexletol 180 Mg Tablet (Bempedoic acid) ..... Take 1 tablet by mouth once a day Ezetimibe 10 Mg Tablet (Ezetimibe) Atorvastatin 20 Mg Tablet (Atorvastatin) ..... Every other day [facility] Cardiology- ready to sign: H er updated medication list for this problem includes: Amlodipine 2.5 Mg Tablet (Amlodipine) ..... Take 1 tablet by mouth twice a day BP today: 118/84 P rior BP: 117/88 (07/14/2022) [facility] Cardiology- ready tosign [facility]- ready to sign: Her updated medication list for this problem includes: Amlodipine 2.5 Mg Tablet (Amlodipine) ..... Take 1 tablet by mouth twice a day [facility] Cardiology- ready tosign [facility]- ready to sign: O rders: C arotid Duplex Bilateral (CPT-21086) M onitor - Telemetry (Mobile Cardiac) (CPT-15330) [facility] Cardiology [facility] [...] CA score Marian Carter MD completed SNOMED-CT: 738753733 [id number] Current Medications Documented Marian Carter MD completed CT- Coronary CA score Marian Carter MD completed SNOMED-CT: 84858542 Physical Exam, Performed: Pulse Exam of Foot Marian Carter MD completed SNOMED-CT: 30408857 Physical Exam, Performed: Pulse Exam of Foot Marian Carter MD completed EKG Marian Carter MD completed SNOMED-CT: [id number] Current Medications Documented Marian Carter MD completed
--- OUTSIDE RECORDS SUMMARY | 2024-08-22 01:01 | XMS_ITS | Referral Summary ---
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
--- OUTSIDE RECORDS SUMMARY | 2024-08-22 01:01 | XMS_ITS | Clinical Summary ---
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
--- OUTSIDE RECORDS SUMMARY | 2024-08-22 01:02 | XMS_ITS | Patient Health Record ---
Author Organization [facility] Address [address] [place] [address] Care Team Providers Care [employer] Person Name Role Phone Brenton Gonsalves Primary Care Provider Reason For Referral No Information Immunizations Vaccine Route Administration Date Status Comme nts COVID-19 Moderna 2nd IM Intramuscular 06/14/2020 Administered COVID-19 Moderna 1ST IM Intramuscular 05/17/2020 Administered EUA provided. Screening and consent reviewed and signed. Patient tolerated well. Plan Of Treatment No Information
--- OUTSIDE RECORDS SUMMARY | 2024-08-22 01:02 | XMS_ITS | Patient Health Record ---
Author Organization [facility] Address [address] [place] [address] Care Team Providers Care Casting Room Helper Name Role Phone Kike Dcik MD Primary Care Provider UnavailChaya Lowery Unavailable [phone] Marsha Padron Unavailable [phone] Migration, Provider Unavailable Unavailable Allergies No Known [...] Active NEXLETOL 180 MG TABLET *Reorder from [facility] for eRx and Interaction Alerts* 07/17/2023 Not-Taking Atorvastatin Calcium 20 MG 1 tablet Oral every five days 07/17/2023 Active Ozempic (0.25 or 0.5 MG/DOSE) 2 MG/3ML Subcutaneous *Pick strength-form from [facility] for eRX* 07/17/2023 Not-Taking Levothyroxine Sodium 112 [...] W/U Status Risk Notes Problem Cannabis dependence (66042520) Cannabis dependence, uncomplicated (F12.20) 12/10/19 22 Active confirmed Problem Bipolar affective disorder, currently depressed, mild (921492418) Bipolar disorder, current episode depressed, mild (F31.31) 07/17/19 24 Active confirmed Problem Generalized anxiety disorder (27366128) Generalized anxiety disorder (F41.1) 07/17/19 24 Active confirmed Problem Posttraumatic stress disorder (29147794) Post-traumatic stress disorder, chronic (F43.12) 05/08/19 24 Active confirmed Problem Insomnia disorder related to another mental disorder (48809063) Insomnia due to other mental disorder (F51.05) 07/17/19 24 Active confirmed Problem Long-term current use of drug therapy (207714044) Other [facility] (current) drug therapy (Z79.899) 07/17/19 24 Active confirmed Problem Obsessive compulsive disorder (754386148) Other obsessive-compuls shabnam disorder (F42.8) 06/05/19 24 Active confirmed Vital Signs Heart Rate 73 /min 06/24/2024 Height-cm 165.10 cm 06/24/2024 Blood pressure diastolic 81 mm Hg 06/24/2024 Weight-kg 90.36 kg 06/24/2024 Height 65.00 in 06/24/2024 Blood pressure systolic 126 mm Hg 06/24/2024 Weight 199.2 lbs 06/24/2024 BMI 33.14 kg/m2 06/24/2024 Encounters Encounter Location Date Provider Diagnosis [place] [id number] [facility] [address] [address] 09/09/2023 Marsha [place] [address] [address] 10/05/2023 Marsha [place] [address] [address] 11/13/2023 Chaya Verdugo Bipolar disorder, current episode depressed, mild F31.31 ; Generalized anxiety disorder F41.1 ; Insomnia due to other mental disorder F51.05 ; Post-traumatic stress disorder, chronic F43.12 ; Other long term care phlebotomist (current) drug therapy Z79.899 ; Cannabis dependence, uncomplicated F12.20 and Other obsessive-compulsive disorder F42.8 [place] [address] [address] 02/15/2024 Chaya Verdugo [place] [address] [facility] [address] [address] 03/24/2024 Chaya Verdugo Bipolar disorder, current episode depressed, mild F31.31 ; Generalized anxiety disorder F41.1 ; Insomnia due to other mental disorder F51.05 ; Post-traumatic stress disorder, chronic F43.12 ; Other long term care phlebotomist (current) drug therapy Z79.899 ; Cannabis dependence, uncomplicated F12.20 and Other obsessive-compulsive disorder F42.8 [place] [address] [address] 06/24/2024 Chaya Verdugo Nicotine use Z72.0 ; Encounter for screening for depression Z13.31 ; Encounter for screening for cardiovascular disorders Z13.6 ; Bipolar disorder, current episode depressed, mild F31.31 ; Generalized anxiety disorder F41.1 ; Insomnia due to other mental disorder F51.05 ; Post-traumatic stress disorder, chronic F43.12 ; Other long term care phlebotomist (current) drug therapy Z79.899 ; Cannabis dependence, uncomplicated F12.20 and Other obsessive-compulsive disorder F42.8 [facility] [place] [address] [place] [address] 08/29/2023 Provider Migration [facility] [place] [address] [facility] [address] [facility] [address] [place] [address] 08/30/2023 Provider Migration [facility] [place] [address] [facility] [address] [facility] [address] [place] [address] 04/12/2024 Chaya Verdugo Assessments Encounter Date Diagnosis [...] of psychosis. http_s://www.nimh. nih.gov/health/top ics/mental-health- medications http_s://www.ju. org/Mdxkx-Fkacru-Y llness/Treatments/ Cpvhpw-Apodhs-Hywl cations Recommend decrease/stop cannabis use as it may be negatively impacting mood, motivation, anxiety, sleep, focus; can also contribute to development of psychosis Cannabis/marijuana information: http_s://dimitry.nih. gov/publications/d rugfacts/cannabis- marijuana http_s://www.Vidavee/cannabi n-wda-bbcwtbwl-mar ijuana-adhd/ http_s://www.ju. org/Glkoy-Onkdfc-P llness/Mental-Heal th-Conditions http_s://Bjond.com/depression /onn-yuyvxhsdk-sue myqoc-qb-adcjdgawj n#treatments http__s://www.nimh .nih.gov/health/to pics/mental-health -medications http__s://www.ju .org/About-Mental- Illness/Treatments /Rhzhsy-Swphfl-Idt ications educated on all medications, benefits, side [...] of psychosis. http_s://www.nimh. nih.gov/health/top ics/mental-health- medications http_s://www.ju. org/Gmwtv-Fknsiv-H llness/Treatments/ Qisxbt-Exhgbm-Dbbk cations Recommend decrease/stop cannabis use as it may be negatively impacting mood, motivation, anxiety, sleep, focus; can also contribute to development of psychosis Cannabis/marijuana information: http_s://dimitry.nih. gov/publications/d rugfacts/cannabis- marijuana http_s://www.Vidavee/cannabCognitive Networks q-ags-lpqejswx-mar ijuana-adhd/ http_s://www.ju. org/Lawen-Rxajxy-G llness/Mental-Heal th-Conditions http_s://Bjond.com/depression /tsn-phnspjpsg-ezi ywort-ew-efugrbepj n#treatments http__s://www.nimh .nih.gov/health/to pics/mental-health -medications http__s://www.ju .org/About-Mental- Illness/Treatments /Jtzbzp-Qknsnz-Uwx ications educated on all medications, benefits, side [...] stop smoking hotline given -Quit - Yes [place] Tobacco Quitline Call a Smoking Quitline The [employer]'s Smoking Quitline, (2-924-03K-QUIT) Smokefree.gov, which connects you with your State's Quitline, (1-274-BTUZJMH) [facility] Smoking Quitline, (4-157-BENITOF) Discussion Notes refer to therapy obtain labs [...] of psychosis. http_s://www.nimh. nih.gov/health/top ics/mental-health- medications http_s://www.ju. org/Rcfak-Dhixgl-C llness/Treatments/ Iwjbco-Uexkna-Xarq cations Recommend decrease/stop cannabis use as it may be negatively impacting mood, motivation, anxiety, sleep, focus; can also contribute to development of psychosis Cannabis/marijuana information: http_s://dimitry.nih. gov/publications/d rugfacts/cannabis- marijuana http_s://www.Vidavee/cannabi p-rjh-pxsrffmo-mar ijuana-adhd/ http_s://www.ju. org/Ngwak-Udlknf-N llness/Mental-Heal th-Conditions http_s://psychcent Neitui.com/depression /gyc-imtqiixtz-qmd arzzu-jp-bqkdpnawr n#treatments http__s://www.nimh .nih.gov/health/to pics/mental-health -medications http__s://www.ju .org/About-Mental- Illness/Treatments /Tmnvaa-Kzugcc-Lur ications educated on all medications, benefits, side [...] nicotine products and stop smoking hotline given 369-Quit - Yes [place] Tobacco Quitline Call a Smoking Quitline The [employer] Smoking Quitline, (7-107-97G-QUIT) Smokefree.gov, which connects you with your State's Quitline, (6-133-PTZEKKX) Veterans Smoking Quitline, (3-246-YKQFHMF) Discussion Notes refer to therapy obtain labs [...] of psychosis. http_s://www.nimh. nih.gov/health/top ics/mental-health- medications http_s://www.ju. org/Bfina-Rhsqln-S llness/Treatments/ Txvcwb-Ootjfr-Dvoe cations Recommend decrease/stop cannabis use as it may be negatively impacting mood, motivation, anxiety, sleep, focus; can also contribute to development of psychosis Cannabis/marijuana information: http_s://dimitry.nih. gov/publications/d rugfacts/cannabis- marijuana http_s://www.Vidavee/cannabi n-fbj-xoomjyll-mar ijuana-adhd/ http_s://www.ju. org/Xccho-Aqdspf-P llness/Mental-Heal th-Conditions http_s://Bjond.com/depression /rpr-wtfbkvmpv-ltk wjrcf-tz-yjotcwifs n#treatments http__s://www.nimh .nih.gov/health/to pics/mental-health -medications http__s://www.ju .org/About-Mental- Illness/Treatments /Lktbyu-Hbfxwb-Vgv ications educated on all medications, benefits, side [...] of psychosis. http_s://www.nimh. nih.gov/health/top ics/mental-health- medications http_s://www.ju. org/Lhwcm-Bwkogg-Z llness/Treatments/ Rywxpx-Pllufi-Aklm cations Recommend decrease/stop cannabis use as it may be negatively impacting mood, motivation, anxiety, sleep, focus; can also contribute to development of psychosis Cannabis/marijuana information: http_s://dimitry.nih. gov/publications/d rugfacts/cannabis- marijuana http_s://www.Vidavee/cannabi b-rjr-hzyzwkjr-mar ijuana-adhd/ http_s://www.ju. org/Pdwue-Hfmhdk-M llness/Mental-Heal th-Conditions http_s://[employer] Auto Workscom/depression /gzr-hjcyhiivy-oih aszbu-cr-fewwjwiet n#treatments http__s://www.nimh .nih.gov/health/to pics/mental-health -medications http__s://www.ju .org/About-Mental- Illness/Treatments /Mfxcfk-Fpftph-Pzo ications educated on all medications, benefits, side [...] of psychosis. http_s://www.nimh. nih.gov/health/top ics/mental-health- medications http_s://www.ju. org/Hnluk-Eqxquq-W llness/Treatments/ Lzwzpk-Jpwerv-Ptnr cations Recommend decrease/stop cannabis use as it may be negatively impacting mood, motivation, anxiety, sleep, focus; can also contribute to development of psychosis Cannabis/marijuana information: http_s://dimitry.nih. gov/publications/d rugfacts/cannabis- marijuana http_s://www.Vidavee/cannabi i-zpa-muwikeir-mar ijuana-adhd/ http_s://www.ju. org/Gkdud-Saqqoc-E llness/Mental-Heal th-Conditions http_s://psychProntoForms.com/depression /esg-wddzplmdr-tgl xpdsx-ie-rzniyumql n#treatments http__s://www.nimh .nih.gov/health/to pics/mental-health -medications http__s://www.ju .org/About-Mental- Illness/Treatments /Gpfbsz-Ksrozz-Nav ications educated on all medications, benefits, side [...] stop smoking hotline given Quit - Yes [place] Tobacco Quitline Call a Smoking Quitline The [employer] Smoking Quitline, (1-789-74M-QUIT) Smokefree.gov, which connects you with your State's Quitline, (6-076-IGKCEOH) Veterans Smoking Quitline, (4-961-UTBIWKO) Discussion Notes refer to therapy obtain labs [...] of psychosis. http_s://www.nimh. nih.gov/health/top ics/mental-health- medications http_s://www.ju. org/Irlkk-Xfdqrm-V llness/Treatments/ Cdduhm-Dhaipx-Dojk cations Recommend decrease/stop cannabis use as it may be negatively impacting mood, motivation, anxiety, sleep, focus; can also contribute to development of psychosis Cannabis/marijuana information: http_s://dimitry.nih. gov/publications/d rugfacts/cannabis- marijuana http_s://www.CloudAptitude.Kraken/cannabi e-wet-hjdgfskv-mar ijuana-adhd/ http_s://www.ju. org/Adzlw-Wnvaks-D llness/Mental-Heal -Conditions http_s://psychcent Neitui.com/depression /zdx-krwbztekl-cdz bltip-he-xogxfuvpe n#treatments http__s://www.nimh .nih.gov/health/to pics/mental-health -medications http__s://www.ju .org/About-Mental- Illness/Treatments /Iotvap-Qubonh-Xxw ications educated on all medications, benefits, side [...] stop smoking hotline given -Quit - Yes [place] Tobacco Quitline Call a Smoking Quitline The [employer] Smoking Quitline, (7-561-80U-QUIT) Smokefree.gov, which connects you with your State's Quitline, (0-315-BXGQMRE) Veterans Smoking Quitline, (8-241-IMKLSCR) Discussion Notes refer to therapy obtain labs [...] of psychosis. http_s://www.nimh. nih.gov/health/top ics/mental-health- medications http_s://www.ju. org/Ksvtl-Nkfzhe-S llness/Treatments/ Ncppyx-Xvrmzy-Joaj cations Recommend decrease/stop cannabis use as it may be negatively impacting mood, motivation, anxiety, sleep, focus; can also contribute to development of psychosis Cannabis/marijuana information: http_s://dimitry.nih. gov/publications/d rugfacts/cannabis- marijuana http_s://www.Vidavee/cannabi m-upb-fregsybj-mar ijuana-adhd/ http_s://www.ju. org/Cdgtl-Zztnyl-T llness/Mental-Heal th-Conditions http_s://Bjond.com/depression /cxp-ibgaksbfy-bqn wqhca-pl-kocrtnliw n#treatments http__s://www.nimh .nih.gov/health/to pics/mental-health -medications http__s://www.ju .org/About-Mental- Illness/Treatments /Fdhdic-Uujlmn-Bil ications educated on all medications, benefits, side [...] to therapy obtain labs PCP 11/13/2023 Other long term care phlebotomist (current) drug therapy (ICD-10 - Z79.899) Medication [...] of psychosis. http_s://www.nimh. nih.gov/health/top ics/mental-health- medications http_s://www.ju. org/Viqqc-Jumitx-W llness/Treatments/ Dumlrz-Llxzmq-Acis cations Recommend decrease/stop cannabis use as it may be negatively impacting mood, motivation, anxiety, sleep, focus; can also contribute to development of psychosis Cannabis/marijuana information: http_s://dimitry.nih. gov/publications/d rugfacts/cannabis- marijuana http_s://www.Vidavee/cannabi w-heo-aliajily-mar ijuana-adhd/ http_s://www.ju. org/Pgghj-Ixtbwu-K llness/Mental-Heal th-Conditions http_s://Bjond.com/depression /xrq-jmypwashq-rdl qdecr-il-rkoxbizrp n#treatments http__s://www.nimh .nih.gov/health/to pics/mental-health -medications http__s://www.ju .org/About-Mental- Illness/Treatments /Cjasoc-Gsgbtd-Rvn ications educated on all medications, benefits, side [...] stop smoking hotline given -Quit - Yes [place] Tobacco Quitline Call a Smoking Quitline The [employer] Smoking Quitline, (4-960-57C-QUIT) Smokefree.gov, which connects you with your State's Quitline, (6-649-FJTWJQH) Veterans Smoking Quitline, (4-484-OSTDPPN) Discussion Notes refer to therapy obtain labs PCP TMS for smoking cessation 03/24/2024 Other long term care phlebotomist (current) drug therapy (ICD-10 - Z79.899) Medication [...] of psychosis. http_s://www.nimh. nih.gov/health/top ics/mental-health- medications http_s://www.ju. org/Dldxr-Dvocfi-L llness/Treatments/ Dkpxzx-Tfrlbb-Alih cations Recommend decrease/stop cannabis use as it may be negatively impacting mood, motivation, anxiety, sleep, focus; can also contribute to development of psychosis Cannabis/marijuana information: http_s://dimitry.nih. gov/publications/d rugfacts/cannabis- marijuana http_s://www.Vidavee/cannabi n-ixt-wxieqmic-mar ijuana-adhd/ http_s://www.ju. org/Rvvfn-Jxjipf-U llness/Mental-Heal th-Conditions http_s://Bjond.com/depression /mso-pxkbzgazi-lbq aawxf-pf-tqjlaxnek n#treatments http__s://www.nimh .nih.gov/health/to pics/mental-health -medications http__s://www.ju .org/About-Mental- Illness/Treatments /Arqhdz-Vsjcsk-Lzn ications educated on all medications, benefits, side [...] of psychosis. http_s://www.nimh. nih.gov/health/top ics/mental-health- medications http_s://www.ju. org/Xbfjn-Vrzirk-K llness/Treatments/ Tikdox-Rgpdlo-Cddy cations Recommend decrease/stop cannabis use as it may be negatively impacting mood, motivation, anxiety, sleep, focus; can also contribute to development of psychosis Cannabis/marijuana information: http_s://dimitry.nih. gov/publications/d rugfacts/cannabis- marijuana http_s://www.CloudAptitude.Kraken/cannabi h-utw-gmgptecp-mar ijuana-adhd/ http_s://www.ju. org/Lfztt-Edwpqf-W llness/Mental-Heal th-Conditions http_s://psychcent Neitui.com/depression /nur-zrlyftmei-sid kvwpa-ci-iwdubuixz n#treatments http__s://www.nimh .nih.gov/health/to pics/mental-health -medications http__s://www.ju .org/About-Mental- Illness/Treatments /Gkfrao-Wezxkw-Aju ications educated on all medications, benefits, side [...] of psychosis. http_s://www.nimh. nih.gov/health/top ics/mental-health- medications http_s://www.ju. org/Jnzeh-Afsekh-Y llness/Treatments/ Ccubmf-Nqyzee-Juho cations Recommend decrease/stop cannabis use as it may be negatively impacting mood, motivation, anxiety, sleep, focus; can also contribute to development of psychosis Cannabis/marijuana information: http_s://dimitry.nih. gov/publications/d rugfacts/cannabis- marijuana http_s://www.Vidavee/cannabi m-jcg-fctkbnsy-mar ijuana-adhd/ http_s://www.ju. org/Twjuo-Xebrzk-R llness/Mental-Heal th-Conditions http_s://psychcent Neitui.com/depression /kjb-epcmuoxsr-ztn qtyfq-of-lrwvhflvy n#treatments http__s://www.[facility] .nih.gov/health/to pics/mental-health -medications http__s://www.ju .org/About-Mental- Illness/Treatments /Gpamjy-Heyiiw-Jla ications educated on all medications, benefits, side [...] stop smoking hotline given Quit - Yes [place] Tobacco Quitline Call a Smoking Quitline The [employer] Smoking Quitline, (7-936-22Y-QUIT) Smokefree.gov, which connects you with your State's Quitline, (9-684-LTDVOXM) [facility] Smoking Quitline, (6-727-RFHVKTY) Discussion Notes refer to therapy obtain labs [...] of psychosis. http_s://www.nimh. nih.gov/health/top ics/mental-health- medications http_s://www.ju. org/Vblna-Nvavpu-G llness/Treatments/ Aqkotk-Zytqnk-Lcmp cations Recommend decrease/stop cannabis use as it may be negatively impacting mood, motivation, anxiety, sleep, focus; can also contribute to development of psychosis Cannabis/marijuana information: http_s://dimitry.nih. gov/publications/d rugfacts/cannabis- marijuana http_s://www.Vidavee/cannabCognitive Networks u-jag-pgbuvpcj-mar ijuana-adhd/ http_s://www.ju. org/Mmchg-Jcptjq-H llness/Mental-Heal th-Conditions http_s://Bjond.com/depression /exa-janpiwddt-zeq ajplj-nc-rsaonolpi n#treatments http__s://www.nimh .nih.gov/health/to pics/mental-health -medications http__s://www.ju .org/About-Mental- Illness/Treatments /Xdoawd-Lupbxd-Zbj ications educated on all medications, benefits, side [...] of psychosis. http_s://www.nimh. nih.gov/health/top ics/mental-health- medications http_s://www.ju. org/Qvnha-Xindao-I llness/Treatments/ Xifkoy-Cxsjvq-Gckl cations Recommend decrease/stop cannabis use as it may be negatively impacting mood, motivation, anxiety, sleep, focus; can also contribute to development of psychosis Cannabis/marijuana information: http_s://dimitry.nih. gov/publications/d rugfacts/cannabis- marijuana http_s://www.Vidavee/cannabi z-une-fozrooxw-mar ijuana-adhd/ http_s://www.ju. org/Qnqtv-Vafqop-P llness/Mental-Heal th-Conditions http_s://Kidaro/depression /qqi-wymwwngub-cle eessp-hp-eubzhjmrc n#treatments http__s://www.nimh .nih.gov/health/to pics/mental-health -medications http__s://www.ju .org/About-Mental- Illness/Treatments /Krgpew-Ppnsmw-Osy ications educated on all medications, benefits, side [...] nicotine products and stop smoking hotline given 301-Quit - Yes [place] Tobacco Quitline Call a Smoking Quitline The [employer] Smoking Quitline, (2-793-07B-QUIT) Smokefree.gov, which connects you with your State's Quitline, (2-889-MMFYJFA) Veterans Smoking Quitline, (5-591-SLIUJLD) Discussion Notes refer to therapy obtain labs PCP TMS for smoking cessation 06/24/2024 Other long term care phlebotomist (current) drug therapy (ICD-10 - Z79.899) Medication [...] of psychosis. http_s://www.nimh. nih.gov/health/top ics/mental-health- medications http_s://www.ju. org/Cgnko-Lxfpck-Y llness/Treatments/ Uievox-Vydrcj-Yadj cations Recommend decrease/stop cannabis use as it may be negatively impacting mood, motivation, anxiety, sleep, focus; can also contribute to development of psychosis Cannabis/marijuana information: http_s://dimitry.nih. gov/publications/d rugfacts/cannabis- marijuana http_s://www.addit udemag.com/cannabi e-kej-tldjpakr-mar ijuana-adhd/ http_s://www.ju. org/Cysbk-Gjpbxh-L llness/Mental-Heal th-Conditions http_s://psychcent Neitui.com/depression /gmc-gjbvkyjwu-mst ebsad-ca-qdowgxugc n#treatments http__s://www.nim .nih.gov/health/to pics/mental-health -medications http__s://www.ju .org/About-Mental- Illness/Treatments /Tbshdr-Qfgdts-Gml ications educated on all medications, benefits, side [...] stop smoking hotline given Quit - Yes [place] Tobacco Quitline Call a Smoking Quitline The [employer] Smoking Quitline, (2-569-55H-QUIT) Smokefree.gov, which connects you with your State's Quitline, (8-090-FOCOYXU) Veterans Smoking Quitline, (3-778-VJSMQOB) Discussion Notes refer to therapy obtain labs [...] of psychosis. http_s://www.nimh. nih.gov/health/top ics/mental-health- medications http_s://www.ju. org/Bvxza-Hyofpz-L llness/Treatments/ Drveqw-Yqnped-Nwhz cations Recommend decrease/stop cannabis use as it may be negatively impacting mood, motivation, anxiety, sleep, focus; can also contribute to development of psychosis Cannabis/marijuana information: http_s://dimitry.nih. gov/publications/d rugfacts/cannabis- marijuana http_s://www.Vidavee/cannabi b-jft-ymilxake-mar ijuana-adhd/ http_s://www.ju. org/Wwupe-Hoslcj-O llness/Mental-Heal th-Conditions http_s://Bjond.Kraken/depression /gjo-lxgrcmmpf-urd vqhdj-vh-vxomnrtxu n#treatments http__s://www.nimh .nih.gov/health/to pics/mental-health -medications http__s://www.ju .org/About-Mental- Illness/Treatments /Niambs-Pdidkp-Lmz ications educated on all medications, benefits, side [...] nicotine products and stop smoking hotline given 110-Quit - Yes [place] Tobacco Quitline Call a Smoking Quitline The [employer] Smoking Quitline, (9-498-32E-QUIT) Smokefree.gov, which connects you with your State's Quitline, (8-160-AWMVEIX) Veterans Smoking Quitline, (2-883-OFYCMTY) Discussion Notes refer to therapy obtain labs [...] of psychosis. http_s://www.nimh. nih.gov/health/top ics/mental-health- medications http_s://www.ju. org/Ihdib-Vejzug-B llness/Treatments/ Okwhdn-Vpqjsu-Mlkl cations Recommend decrease/stop cannabis use as it may be negatively impacting mood, motivation, anxiety, sleep, focus; can also contribute to development of psychosis Cannabis/marijuana information: http_s://dimitry.nih. gov/publications/d rugfacts/cannabis- marijuana http_s://www.Vidavee/cannabi n-mwf-tkrcdrcq-mar ijuana-adhd/ http_s://www.ju. org/Agqse-Nrpste-J llness/Mental-Heal th-Conditions http_s://psychcent Neitui.com/depression /rpc-bfcnshktd-mgj fgnzo-ww-dpjgirobr n#treatments http__s://www.nim .nih.gov/health/to pics/mental-health -medications http__s://www.ju .org/About-Mental- Illness/Treatments /Svgzma-Iytcul-Jwk ications educated on all medications, benefits, side [...] stop smoking hotline given Quit - Yes [place] Tobacco Quitline Call a Smoking Quitline The [employer] Smoking Quitline, (4-684-32Z-QUIT) Smokefree.gov, which connects you with your State's Quitline, (1-472-CABTTKN) Veterans Smoking Quitline, (7-533-XXFAOSC) Discussion Notes refer to therapy obtain labs PCP [facility] for smoking cessation 11/13/2023 Other Cariprazine Oral [...] Provider Name:Chaya Verdugo , 09/23/2024 10:45:00 AM, [address], [facility], [place], [address], Insurance Providers Payer Name Payer Address Payer Phone Subscriber Number Group Number Insured Name Patient Relationship to Insured Coverage Start Date Coverage End Date [facility] [address] [place] [address] [id number] JUANA KAPLAN Self - patient is the [...] user , Surgical History Surgery Date(Month/Year) Cholecystectomy (82670110) Removal of gallbladder (88874) Removal of ovary(s) (02799) Tonsilectomy/adenoids Hysterectomy/revise vagina (97198)
--- OUTSIDE RECORDS SUMMARY | 2024-08-22 01:02 | XMS_ITS | Data Portability ---
Author Organization [facility] KEMALBertha James Address [address] [place] [address] Care Team Providers Care Drawer In Dobby Loom Name Role Phone DICKLAURA Primary Care Provider Assessment Encounter Date Assessment Date Assessment LastModified by Organization Details LastModified Time 10/09/2023 10/09/2023 Norvasc 5 mg manju f tablet healthy lifestyle choices care instructions given follow-up with me in a month Not available 10/09/2023 16:13:30 01/15/2024 01/15/2024 increase Ozempic to 2 mg check vitamin B12 blood work reviewed that was done by her department specialist follow up with me in 1 month [email or web address] Not available 01/15/2024 14:20:56 05/13/2024 05/13/2024 probably staph folliculitis Hibiclens body washes for 2 weeks mupirocin b.i.d. x2 weeks hyperlipidemia diabetes obesity hypertension discussed she has good support system is here her bereavement process appears to be appropriate. She will see me back in 3 months [email or web address] Not available 05/13/2024 21:14:51 06/02/2024 06/02/2024 ofloxacin ear drops on the left call if not improved keep regular appointment [email or web address] Not available 06/12/2024 21:19:13 08/05/2024 08/05/2024 UA with micro healthy lifestyle care instructions atorvastatin 20 mg half tablet daily for pre screen looks good then she will be cleared for surgery from my standpoint consider Ozempic after her surgery we will not start it before obviously because they would have to stop it right away because of the anesthesia concerns [email or web address] Not available 08/05/2024 16:33:47 Plan of Treatment Reminders Order Date Submit Date Provider Last Modified By Organization Details Last Modified Time Details Appointments ANY 15 2024 09:00A M Laura Dick MD Not available Not available Not available Lab urinalysi s complete, reflex culture 2024 025 [facility], [address], [place], [address], 08/06/2024 09:37:04 albumin/c reatinine , mass ratio, urine 2024 025 [facility], [address], [place], [address], 05/14/2024 09:12:30 HbA1c (hemoglob in A1c), blood 2024 025 [facility], [address], [place], [address], 05/14/2024 09:12:34 CBC w/ auto diff 2024 025 [facility], [address], [place], [address], 05/14/2024 09:12:35 lipid panel, serum 2024 025 [place] [facility], [address], [place], [address], 05/14/2024 09:12:31 CMP, serum or plasma 2024 025 [place] [facility], [address], [place], [address], 05/14/2024 09:12:33 vitamin B12 + folate, serum or blood 2023 024 [facility], [address], [place], [address], 01/16/2024 10:14:13 Referral None recorded. Procedures None recorded. Surgeries None recorded. Imaging None recorded. Medication Orders atorvasta tin 20 mg tablet [address]/Pharmacy #[id number], [address], [place], [address], 08/05/2024 14:27:45 ofloxacin 0.3 % ear drops [address]/Pharmacy #[id number], [address], [place], [address], 06/02/2024 17:23:35 OneTouch Verio test strips [address]/Pharmacy #[id number], [address], [place], [address], 05/13/2024 14:01:31 mupirocin 2 % topical ointment [address]/Pharmacy #[id number], [address], [place], [address], 05/13/2024 14:01:31 Ozempic 2 mg/dose (8 mg/3 mL) subcutane ous pen injector [address]/Pharmacy #[id number], [address], [place], [address], 01/15/2024 13:50:29 Norvasc 5 mg tablet [address]/Pharmacy #[id number], [address], [place], [address], 10/09/2023 16:12:09 Patient TargetsNo targets recorded. Patient Instructions Encounter Date Encounter Id Patient Instructions Last Modified By Organization Details Last Modified Time 10/09/2023 [id number] A healthy lifestyle: care instructions Not available 10/09/2023 15:34:53 01/15/2024 [id number] A healthy lifestyle: care instructions Not available 01/15/2024 13:43:55 05/13/2024 [id number] A healthy lifestyle: care instructions [email or web address] Not available 05/13/2024 14:01:31 06/02/2024 [id number] A healthy lifestyle: care instructions [email or web address] Not available 06/02/2024 17:23:35 08/05/2024 [id number] A healthy lifestyle: care instructions [email or web address] Not available 08/05/2024 14:27:45 Reason for Referral None Reported. Results Created Date Observation Date Name Description Value Unit Range Abnormal Flag Note LastModifiedBy Organization Detail LastModifiedTime 12/29/1912/29/2023 HbA1c (hemo globi n A1c), blood A1C 5.5 normal Not Available [address], [address], 01/01/2024 07:15:14 01/15/2001/16/2024 VITAM IN B12 AND FOLAT E vitamin B12 277 pg/mL 232-12 45 Not Available [facility] ([facility]) [address] [facility], [place], [address], 01/16/2024 10:14:13 01/15/2001/16/2024 VITAM IN B12 AND FOLAT E folate (folic acid), serum 13.6 NG/mL >3.0 A serum folat e aylin ntrat ion of less than 3.1 ng/mL is consi dered to repre sent clini sindy defic iency . Not Available [facility] ([facility]) [address] [facility], [place], [address], 01/16/2024 10:14:13 05/13/1905/14/2024 ALBUM IN/CR EATIN INE RATIO ,URIN E creatinine, urine 129.2 mg/dL notest ab. Not Available [facility] ([facility]) [address] [facility], [place], [address], 05/14/2024 09:12:30 05/13/19 25 05/14/2024 ALBUM IN/CR EATIN INE RATIO ,URIN E albumin, urine 6.5 ug/mL notest ab. Not Available [facility] ([facility]) [address] [place], [address], 05/14/2024 09:12:30 05/13/19 25 05/14/2024 ALBUM IN/CR EATIN INE RATIO ,URIN E alb/creat ratio 5 mg/g_ creat 0-29 Audrey l: 0 - 29 Moder ately incre ased: 30 - 300 Sever madison incre ased: >300 Not Available [facility] ([facility]) [address] [place], [address], 05/14/2024 09:12:30 05/13/19 25 05/14/2024 LIPID PANEL cholesterol, total 228 mg/dL 100-19 9 above high normal Not Available [facility] ([facility]) [address] [place], [address], 05/14/2024 09:12:31 05/13/19 25 05/14/2024 LIPID PANEL triglyceride s 198 mg/dL 0-149 above high normal Not Available [facility] ([facility]) [address] [place], [address], 05/14/2024 09:12:31 05/13/19 25 05/14/2024 LIPID PANEL HDL cholesterol 39 mg/dL >39 below low normal Not Available [facility] ([facility]) [address] [place], [address], 05/14/2024 09:12:31 05/13/19 25 05/14/2024 LIPID PANEL VLDL cholesterol sindy 36 mg/dL 5-40 Not Available [facility] ([facility]) [address] [place], [address], 05/14/2024 09:12:31 05/13/19 25 05/14/2024 LIPID PANEL LDL chol calc (nih) 153 mg/dL 0-99 above high normal Not Available [facility] ([facility]) [address] [place], [address], 05/14/2024 09:12:31 05/13/19 25 05/14/2024 COMP. METAB OLIC PANEL (14) glucose 115 mg/dL 70-99 above high normal Not Available [facility] ([facility]) [address] [place], [address], 05/14/2024 09:12:32 05/13/19 25 05/14/2024 COMP. METAB OLIC PANEL (14) BUN 8 mg/dL 6-24 Not Available [facility] ([facility]) [address] [place], [address], 05/14/2024 09:12:32 05/13/19 25 05/14/2024 COMP. METAB OLIC PANEL (14) creatinine 0.86 mg/dL 0.57-1 .00 Not Available [facility] ([facility]) [address] [place], [address], 05/14/2024 09:12:32 05/13/19 25 05/14/2024 COMP. METAB OLIC PANEL (14) eGFR 82 mL/mi n/1.7 3 >59 Not Available [facility] ([facility]) [address] [place], [address], 05/14/2024 09:12:32 05/13/19 25 05/14/2024 COMP. METAB OLIC PANEL (14) BUN/creatini ne ratio 9 9-23 Not Available [facility] ([facility]) [address] [place], [address], 05/14/2024 09:12:32 05/13/19 25 05/14/2024 COMP. METAB OLIC PANEL (14) sodium 141 mmol/ L 134-14 4 Not Available [facility] ([facility]) [address] [place], [address], 05/14/2024 09:12:32 05/13/19 25 05/14/2024 COMP. METAB OLIC PANEL (14) potassium 3.8 mmol/ L 3.5-5. 2 Not Available [facility] ([facility]) [address] [place], [address], 05/14/2024 09:12:32 05/13/19 25 05/14/2024 COMP. METAB OLIC PANEL (14) chloride 104 mmol/ L 96-106 Not Available [facility] ([facility]) [address] [place], [address], 05/14/2024 09:12:32 05/13/19 25 05/14/2024 COMP. METAB OLIC PANEL (14) carbon dioxide, total 25 mmol/ L 20-29 Not Available [facility] ([facility]) [address] [place], [address], 05/14/2024 09:12:32 05/13/19 25 05/14/2024 COMP. METAB OLIC PANEL (14) calcium 9.0 mg/dL 8.7-10 .2 Not Available [facility] ([facility]) [address] [place], [address], 05/14/2024 09:12:32 05/13/19 25 05/14/2024 COMP. METAB OLIC PANEL (14) protein, total 6.0 g/dL 6.0-8. 5 Not Available [facility] ([facility]) [address] [place], [address], 05/14/2024 09:12:32 05/13/19 25 05/14/2024 COMP. METAB OLIC PANEL (14) albumin 4.1 g/dL 3.8-4. 9 Not Available [facility] ([facility]) [address] [place], [address], 05/14/2024 09:12:32 05/13/19 25 05/14/2024 COMP. METAB OLIC PANEL (14) globulin, total 1.9 g/dL 1.5-4. 5 Not Available [facility] ([facility]) [address] [facility], [place], [address], 05/14/2024 09:12:32 05/13/19 25 05/14/2024 COMP. METAB OLIC PANEL (14) bilirubin, total <0.2 mg/dL 0.0-1. 2 Not Available [facility] ([facility]) [address] [place], [address], 05/14/2024 09:12:32 05/13/19 25 05/14/2024 COMP. METAB OLIC PANEL (14) alkaline phosphatase 80 IU/L 44-121 Not Available [facility] ([facility]) [address] [place], [address], 05/14/2024 09:12:32 05/13/19 25 05/14/2024 COMP. METAB OLIC PANEL (14) AST (SGOT) 22 IU/L 0-40 Not Available [facility] ([facility]) [address] [place], [address], 05/14/2024 09:12:32 05/13/19 25 05/14/2024 COMP. METAB OLIC PANEL (14) ALT (SGPT) 20 IU/L 0-32 Not Available [facility] ([facility]) [address] [place], [address], 05/14/2024 09:12:32 05/13/19 25 05/14/2024 HEMOG LOBIN A1C hemoglobin A1C 5.5 % 4.8-5. 6 Predi abete s: 5.7 - 6.4 Diabe quentin: >6.4 Glyce phil contr ol for adult s with diabe quentin: <7.0 Not Available [facility] ([facility]) [address] [place], [address], 05/14/2024 09:12:34 05/13/19 25 05/14/2024 CBC WITH DIFFE RENTI AL/PL ATELE T WBC 9.6 x10e3 /uL 3.4-10 .8 Not Available [facility] ([facility]) [address] [facility], [place], [address], 05/14/2024 09:12:35 05/13/19 25 05/14/2024 CBC WITH DIFFE RENTI AL/PL ATELE T RBC 4.53 x10e6 /uL 3.77-5 .28 Not Available [facility] ([facility]) [address] [facility], [place], [address], 05/14/2024 09:12:35 05/13/19 25 05/14/2024 CBC WITH DIFFE RENTI AL/PL ATELE T hemoglobin 13.5 g/dL 11.1-1 5.9 Not Available [facility] ([facility]) [address] [facility], [place], [address], 05/14/2024 09:12:35 05/13/1905/14/2024 CBC WITH DIFFE RENTI AL/PL ATELE T hematocrit 39.7 % 34.0-4 6.6 Not Available [facility] ([facility]) [address] [facility], [place], [address], 05/14/2024 09:12:35 05/13/1905/14/2024 CBC WITH DIFFE RENTI AL/PL ATELE T MCV 88 fL 79-97 Not Available [facility] ([facility]) [address] [place], [address], 05/14/2024 09:12:35 05/13/19 25 05/14/2024 CBC WITH DIFFE RENTI AL/PL ATELE T MCH 29.8 pg 26.6-3 3.0 Not Available [facility] ([facility]) [address] [place], [address], 05/14/2024 09:12:35 05/13/19 25 05/14/2024 CBC WITH DIFFE RENTI AL/PL ATELE T MCHC 34.0 g/dL 31.5-3 5.7 Not Available [facility] ([facility]) [address] [facility], [place], [address], 05/14/2024 09:12:35 05/13/19 25 05/14/2024 CBC WITH DIFFE RENTI AL/PL ATELE T RDW 13.2 % 11.7-1 5.4 Not Available [facility] ([facility]) [address] [facility], [place], [address], 05/14/2024 09:12:35 05/13/19 25 05/14/2024 CBC WITH DIFFE RENTI AL/PL ATELE T platelets 215 x10e3 /uL 150-45 0 Not Available [facility] ([facility]) [address] [facility], [place], [address], 05/14/2024 09:12:35 05/13/19 25 05/14/2024 CBC WITH DIFFE RENTI AL/PL ATELE T neutrophils 48 % notest ab. Not Available [facility] ([facility]) [address] [facility], [place], [address], 05/14/2024 09:12:35 05/13/19 25 05/14/2024 CBC WITH DIFFE RENTI AL/PL ATELE T lymphs 43 % notest ab. Not Available [facility] ([facility]) [address] [facility], [place], [address], 05/14/2024 09:12:35 05/13/19 25 05/14/2024 CBC WITH DIFFE RENTI AL/PL ATELE T monocytes 5 % notest ab. Not Available [facility] ([facility]) [address] [facility], [place], [address], 05/14/2024 09:12:35 05/13/19 25 05/14/2024 CBC WITH DIFFE RENTI AL/PL ATELE T eos 3 % notest ab. Not Available [facility] ([facility]) [address] [facility], [place], [address], 05/14/2024 09:12:35 05/13/19 25 05/14/2024 CBC WITH DIFFE RENTI AL/PL ATELE T basos 1 % notest ab. Not Available [facility] ([facility]) [address] [facility], [place], [address], 05/14/2024 09:12:35 05/13/19 25 05/14/2024 CBC WITH DIFFE RENTI AL/PL ATELE T neutrophils (absolute) 4.5 x10e3 /uL 1.4-7. 0 Not Available [facility] ([facility]) [address] [facility], [place], [address], 05/14/2024 09:12:35 05/13/19 25 05/14/2024 CBC WITH DIFFE RENTI AL/PL ATELE T lymphs (absolute) 4.1 x10e3 /uL 0.7-3. 1 above high normal Not Available [facility] ([facility]) [address] [place], [address], 05/14/2024 09:12:35 05/13/19 25 05/14/2024 CBC WITH DIFFE RENTI AL/PL ATELE T monocytes(ab solute) 0.5 x10e3 /uL 0.1-0. 9 Not Available [facility] ([facility]) [address] [place], [address], 05/14/2024 09:12:35 05/13/19 25 05/14/2024 CBC WITH DIFFE RENTI AL/PL ATELE T eos (absolute) 0.3 x10e3 /uL 0.0-0. 4 Not Available [facility] ([facility]) [address] [place], [address], 05/14/2024 09:12:35 05/13/19 25 05/14/2024 CBC WITH DIFFE RENTI AL/PL ATELE T baso (absolute) 0.1 x10e3 /uL 0.0-0. 2 Not Available [facility] ([facility]) [address] [facility], [place], [address], 05/14/2024 09:12:35 05/13/19 25 05/14/2024 CBC WITH DIFFE RENTI AL/PL ATELE T immature granulocytes 0 % notest ab. Not Available [facility] ([facility]) [address] [facility], [place], [address], 05/14/2024 09:12:35 05/13/19 25 05/14/2024 CBC WITH DIFFE RENTI AL/PL ATELE T immature grans (abs) 0.0 x10e3 /uL 0.0-0. 1 Not Available [facility] ([facility]) [address] [facility], [place], [address], 05/14/2024 09:12:35 08/06/19 25 08/06/2024 MICRO SCOPI C EXAMI NATIO N WBC None seen /hpf 0-5 Not Available [facility] ([facility]) [address] [facility], [place], [address], 08/06/2024 09:37:03 08/06/19 25 08/06/2024 MICRO SCOPI C EXAMI NATIO N RBC None seen /hpf 0-2 Not Available [facility] ([facility]) [address] [facility], [place], [address], 08/06/2024 09:37:03 08/06/19 25 08/06/2024 MICRO SCOPI C EXAMI NATIO N epithelial cells (non renal) 0-10 /hpf 0-10 Not Available [facility] ([facility]) [address] [facility], [place], [address], 08/06/2024 09:37:03 08/06/19 25 08/06/2024 MICRO SCOPI C EXAMI NATIO N casts None seen /lpf nonese en Not Available [facility] ([facility]) [address] [facility], [place], [address], 08/06/2024 09:37:03 08/06/1908/06/2024 MICRO SCOPI C EXAMI NATIO N crystals Presen t n/a abnormal Not Available [facility] ([facility]) [address] [facility], [place], [address], 08/06/2024 09:37:03 08/06/1908/06/2024 MICRO SCOPI C EXAMI NATIO N crystal type Calciu m Oxalat e Not Available [facility] ([facility]) [address] [facility], [place], [address], 08/06/2024 09:37:03 08/06/1908/06/2024 MICRO SCOPI C EXAMI NATIO N bacteria None seen nonese en/few Not Available [facility] ([facility]) [address] [place], [address], 08/06/2024 09:37:03 08/06/1908/06/2024 UA/M W/RFL X CULTU RE ROUTI NE specific gravity 1.024 1.005- 1.030 Not Available [facility] ([facility]) [address] [place], [address], 08/06/2024 09:37:04 08/06/1908/06/2024 UA/M W/RFL X CULTU RE, ROUTI NE pH 5.5 5.0-7. 5 Not Available [facility] ([facility]) [address] [place], [address], 08/06/2024 09:37:04 08/06/19 25 08/06/2024 UA/M W/RFL X CULTU RE, ROUTI NE urine-color YELLOW yellow Not Available [facility] ([facility]) [address] [place], [address], 08/06/2024 09:37:04 08/06/19 25 08/06/2024 UA/M W/RFL X CULTU RE, ROUTI NE appearance TURBID clear abnormal Not Available [facility] ([facility]) [address] [place], [address], 08/06/2024 09:37:04 08/06/19 25 08/06/2024 UA/M W/RFL X CULTU RE, ROUTI NE WBC esterase NEGATI VE negati ve Not Available [facility] ([facility]) [address] [place], [address], 08/06/2024 09:37:04 08/06/19 25 08/06/2024 UA/M W/RFL X CULTU RE, ROUTI NE protein TRACE negati ve/tra ce Not Available [facility] ([facility]) [address] [place], [address], 08/06/2024 09:37:04 08/06/19 25 08/06/2024 UA/M W/RFL X CULTU RE, ROUTI NE glucose NEGATI VE negati ve Not Available [facility] ([facility]) [address] [place], [address], 08/06/2024 09:37:04 08/06/19 25 08/06/2024 UA/M W/RFL X CULTU RE, ROUTI NE ketones NEGATI VE negati ve Not Available [facility] ([facility]) [address] [place], [address], 08/06/2024 09:37:04 08/06/19 25 08/06/2024 UA/M W/RFL X CULTU RE, ROUTI NE occult blood NEGATI VE negati ve Not Available [facility] ([facility]) [address] [facility], [place], [address], 08/06/2024 09:37:04 08/06/19 25 08/06/2024 UA/M W/RFL X CULTU RE, ROUTI NE bilirubin NEGATI VE negati ve Not Available [facility] ([facility]) [address] [facility], [place], [address], 08/06/2024 09:37:04 08/06/19 25 08/06/2024 UA/M W/RFL X CULTU RE, ROUTI NE urobilinogen ,semi-qn 0.2 mg/dL 0.2-1. 0 Not Available [facility] ([facility]) [address] [facility], [place], [address], 08/06/2024 09:37:04 08/06/19 25 08/06/2024 UA/M W/RFL X CULTU RE, ROUTI NE nitrite, urine NEGATI VE negati ve Not Available [facility] ([facility]) [address] [facility], [place], [address], 08/06/2024 09:37:04 08/06/19 25 08/06/2024 UA/M W/RFL X CULTU RE, ROUTI NE microscopic examination COMMEN T Micro scopi c follo ws if indic ated. Not Available [facility] ([facility]) [address] [facility], [place], [address], 08/06/2024 09:37:04 08/06/19 25 08/06/2024 UA/M W/RFL X CULTU RE, ROUTI NE microscopic examination SEE BELOW: Micro scopi c was indic ated and was perfo rmed. Not Available [facility] ([facility]) [address] [place], [address], 08/06/2024 09:37:04 08/06/19 25 08/06/2024 UA/M W/RFL X CULTU RE, ROUTI NE urinalysis reflex COMMEN T This speci men will not refle x to a Urine Cultu re. Not Available [facility] ([facility]) [address], [place], [address], 08/06/2024 09:37:04 12/04/19 24 12/04/2023 US, duple x, carot id arter y No observ ation record ed. [facility] [address], [place], [address], 12/08/2023 09:40:23 02/17/20 24 02/17/2024 XR, cervi sindy spine No observ ation record ed. [email or web address] [facility] [address] [place], [address], 02/18/2024 22:26:33 02/19/20 24 02/17/2024 XR, thora cic spine No observ ation record ed. [facility] [address] [place], [address], 02/22/2024 21:36:25 Result Notes None recorded. Problems Name Problem SNOMED Code Status Onset Date Resolution Date Notes Provider Name and Address Organization Details Recorded Time Low back pain 444042969 Active 2023 Laura Dick MD Attn: Angela tadeo,[address] [facility], [place], [address], [facility] 4 10:40:31 Pain of left elbow joint 3615805057911 9104 Active 2023 Luara Dick MD Attn: Angela g,[address] [facility], [place], [address], [place] [facility] 4 10:40:33 Hyperlipide adrianna 25479857 Active 2023 Laura Dick MD Attn: Angela g,[address] [facility], [place], [address], [facility] - [facility] 4 10:40:34 Type 2 diabetes mellitus 69237684 Active 2023 Patricia Harrell MA null, [place] - [facility] 4 12:57:34 Screening mammography Active 2023 Patricia Har[place], [place] [facility] 4 12:57:36 Thoracic back pain 413584776 Active 2023 Patricia Harrell [place], [place] [facility] 4 12:57:38 Fatigue 30469106 Active 2023 Patricia Har[place], [place] [facility] 4 12:57:39 Essential hypertensio n 29594990 Active 2023 Patricia Har[place] null, [place] [facility] 4 12:48:35 Hypothyroid ism 71319263 Active 2024 Laura Dick MD Attn: Angela shwetha,[address] [facility], [place], [address], [facility] 5 21:14:29 Problem Notes None recorded. Procedures Surgical History Date Name Laterality Status Provider Name and Address Organization Details Recorded Time 04/13/19 02 Total hysterectomy completed Julianne Romero MA [place] - [facility] 06/02/2024 16:12:33 cholecystectomy completed Cathie Patricia MA [place] - [facility] 06/12/2023 10:36:57 Imaging Results Imaging Date Name Status LastModified by Organiz ation Details LastModified Time 12/04/2023 US, duplex, carotid artery completed [facility] [address], [place], [address], 12/08/2023 09:40:23 02/17/2024 XR, cervical spine completed [address] [place], [address], 02/18/2024 22:26:33 02/17/2024 XR, thoracic spine completed [email or web address] [facility] [address] [place], [address], 02/22/2024 21:36:25 Procedure Notes None recorded. Medical [...] Not Available Not Available No t Available cyanocobala min (vit B-12) 1,000 mcg/mL [...] Updated DateTime 4 165.1 cm 31.5 kg/m2 92123.0 4 g 69 /min 99 % 99 % 143 mm[Hg] 93 mm[Hg] George Tavarez MA [place] - [facility] 4 10:04:10 Date Recorded Body height Body mass index (BMI) Body weight Heart rate Oxygen saturation Oxygen saturation in Arterial blood by Pulse oximetry Systolic blood pressure Diastolic blood pressure Provider Name and Address Organization Details Last Updated DateTime 4 165.1 cm 31.3 kg/m2 03386.7 2 g 82 /min 97 % 97 % 130 mm[Hg] 82 mm[Hg] Julianne [place] [facility] 4 11:47:22 Date Recorded Body height Body mass index (BMI) Body weight Heart rate Oxygen saturation Oxygen saturation in Arterial blood by Pulse oximetry Systolic blood pressure Diastolic blood pressure Provider Name and Address Organization Details Last Updated DateTime 5 165.1 cm 31.3 kg/m2 58374.3 7 g 82 /min 97 % 97 % 122 mm[Hg] 82 mm[Hg] Julianne [facility] 5 11:05:39 Date Recorded Body height Body mass index (BMI) Body weight Heart rate Oxygen saturation Oxygen saturation in Arterial blood by Pulse oximetry Systolic blood pressure Diastolic blood pressure Provider Name and Address Organization Details Last Updated DateTime 5 165.1 cm 31.3 kg/m2 31239.3 7 g 82 /min 97 % 97 % 118 mm[Hg] 82 mm[Hg] [facility] 5 16:11:43 Date Recorded Body height Body mass index (BMI) Body weight Heart rate Oxygen saturation Oxygen saturation in Arterial blood by Pulse oximetry Systolic blood pressure Diastolic blood pressure Provider Name and Address Organization Details Last Updated DateTime 5 165.1 cm 32.9 kg/m2 02189.5 7 g 50 /min 95 % 95 % 120 mm[Hg] 80 mm[Hg] [facility] 5 12:11:20 Social History Question Answer Notes LastModified by Organizat ion Details LastModified Time Tobacco Smoking Status Current Every Day Sm[facility] 06/12/2023 10:36:23 Do You Have An Advance Directive? No Information n ot available 10/09/2023 Are You Blind Or Do You Have Difficulty Seeing? No Information n ot available 10/09/2023 What Is Your Level Of Caffeine Consumption? Moderate Information not available 06/12/2023 In The 14 Days Before Symptom Onset, Have You Had Close Contact With A Laboratory-confirm ed COVID-19 While That Case Was Ill? No Information n ot available 01/15/2024 In The 14 Days Before [...] Of Diet Are You Following? REGULAR Information n ot available 10/09/2023 Are There Any Guns Present [...] PPD Information not available 10/09/2023 Do You Use Sunscreen Routinely? Yes Information not available 01/15/2024 Has Tobacco Cessation Counseling Been Provided? Yes Information not available 06/12/2023 On What Date Was Tobacco Cessation Counseling Provided? 08/05/2024 Information not available 08/05/2024 Sex: Female Functional Status Question Answer Note LastModified by Organizat ion Details LastModified Time Do you use any illicit or recreational drugs? Yes marijuanna Information not available 06/12/2023 Do you or have you ever used any other forms of tobacco or nicotine? No Information not available 06/12/2023 What is your level of alcohol consumption? None Information not available 06/12/2023 Are you able to care for yourself? Yes Information not available 10/09/2023 What is your exercise level? None Information not available 10/09/2023 Mental Status Question Answer Note LastModified by Organization D etails LastModified Time Do you feel stressed (tense, restless, nervous, or anxious, or unable to sleep at night)? 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 Hyperlipidemia 18366439 E78.5 [id number] MD Ruthie Kirkpatrick (Adult Med) [address] [place] [address]387-577 0 07/24/2023 09:57:58 07/24/2023 10:54:51 Hyperlipidemia 82965309 E78.5 Pain of le ft elbow joint 9592295584 8686176 M25.522 Low back pain 211704353 M54.50 Fatigue 56017172 R53.83 Thoracic back pain 34599 8004 M54.6 Screening mammography 24 433840 Z12.31 Type 2 noé betes mellitus 15178915 E11.9 [id number] MD Ruthie Kirkpatrick (Adult Med) [address] [place] [phone] 0 08/07/2023 11:46:29 08/07/2023 13:06:59 Low back pain 647266912 M54.50 Thoracic back pain 08948 8004 M54.6 Type 2 noé betes mellitus 36683852 E11.9 [id number] Laura Dick MD [facility] [place] [address] [place] [address] 10/01/2023 13:59:12 10/01/2023 14:47:36 [id number] MD Ruthie Kirkpatrick (Adult Med) [address] [place] [phone] 0 10/09/2023 09:43:39 10/09/2023 10:30:40 Essential hypertension 32562739 I10 Obesity 729468179 E66.8 [id number] MD Ruthie Kirkpatrick (Adult Med) [address] [place] [phone] 01/15/2024 11:33:38 01/15/2024 12:52:44 Obesity 291971328 E66.9 Essential hypertension 03473551 I10 Fatigue 41261380 R53.83 Type 2 noé betes mellitus 39253290 E11.9 Hyperlipidemia 13683948 E78.5 [id number] MD Ruthie Kirkpatrick (Adult Med) [address] [place] [phone] 0 05/13/2024 10:59:25 05/13/2024 12:08:39 Body mass index 30+ - obesity 946437726 Z68.31 Obesity 817770317 E66.9 Essential hypertension 25364749 I10 Hyperlipidemia 25182256 E78.5 Type 2 noé betes mellitus 55229224 E11.9 Lesion of nasal mucosa 851954144 J34.89 [id number] Laura Dick MD [facility] [place] [address] [place] [address] 06/02/2024 15:53:40 06/02/2024 17:22:17 Body mass index 30+ - obesity 633777960 Z68.31 Obesity 315031666 E66.9 Rhinitis 60652331 J00 Tinnitus of left ear 870 1051551 106 H93.12 [id number] MD Ruthie Kirkpatrick (Adult Med) [address] [place] [phone] 08/05/2024 11:32:03 08/05/2024 12:37:10 Body mass index 30+ - obesity 903982447 Z68.32 Obese class I 1956055063 06350 E66.811 Dysuria 54171690 R30.0 Hyperlipidemia 49893983 E78.5 Hypothyroidism 03154320 E03.9 Essential hypertension 28964763 I10 Type 2 noé betes mellitus 06939788 E11.9 Health Concerns Section Related Observation LastModified by Organization Detai ls LastModified Time None Recorded Concern Status LastModified by Organization Details LastModified Time None Recorded Advance Directives Directive N: Payers Encounter Date Sequence Insurance Name Policy Number Policy Cronin Covered Member ID Cronin Member ID Guarantor Name 10/09/2023 1 [place] [id number] Ronal Simmons [id number] Christina Simmons 01/15/2024 1 [place] [id number] Ronal Simmons [id number] Christina Simmons 05/13/2024 1 [place] [id number] Ronal Simmons [id number] Christina Simmons 06/02/2024 1 [place] [id number] Ronal Simmons [id number] Christina Simmons 08/05/2024 1 [place] [id number] Ronal Simmons [id number] Christina Simmons Notes Date Note Type Note Provider Name and Address Organization Details Recorded Time 10/09/2023 text/html Some weight loss with the Ozempic we stopped her lisinopril HCTZ because she was having some low blood pressure readings at home and now pressures drifted up a little bit. Lots of stress dealing with her mother in hospice Laura Dick MD Attn: Accounting, [address] [place], [address], [facility] 10/09/2023 16:13:51 01/15/2024 text/html fatigue caring f or an elderly mother who is on hospice obesity trouble losing weight hyperlipidemia trying to follow a low-fat diet hypertension coming under better control Laura Dick MD Attn: Accounting, [address] [place], [address], [facility] 01/15/2024 14:21:14 05/13/2024 text/html mother in interval history. Dyslipidemia in needs blood work diabetes no polyphagia polydipsia does not take her sugars at home hypertension blood pressure is controlled. She does have lesion left nasal meatus Laura Dick MD Attn: Accounting, [address] [place], [address], [place] [facility] 05/13/2024 21:15:10 06/02/2024 text/html ringing in the l eft ear that is clogged up for a week or so no pain Laura Dick MD Attn: Accounting,[address] [facility], [place], [address], [facility] 06/12/2024 21:19:41 08/05/2024 text/html Diabetes no polyphagia [...] palpitations Laura Dick MD Attn: Accounting,[address] [facility], [place], [address], [facility] 08/05/2024 16:34:04 OBGyn Episode No OBEpisode recorded.
--- OUTSIDE RECORDS SUMMARY | 2024-08-22 01:03 | XMS_ITS | Data Portability ---
Author Organization [facility], [place] Address [address] [place] [address] Assessment Encounter Date Assessment Date Assessment LastModified [...] % (37.5 mg/5 gram) vaginal gel [address] [place] [address]/Pharmacy #[id number], [address] [facility], [place], [address], 12:44:56 Patient TargetsNo targets recorded. Patient InstructionsNo instructions recorded. Reason for Referral None Reported. Procedures Surgical History Date Name Laterality Status Provider Name and Address Organization Details Recorded Time Tonsillectomy completed [facility] 06/19/2022 12:12:27 Oophorectomy completed [facility] 06/19/2022 12:12:27 Total Hysterectomy completed [facility]ike [facility] 06/19/2022 12:12:27 tonsilectomy[facility]oi ds [facility] 12:12:27 Cholecystectomy completed [facility] 06/19/2022 12:12:27 Colonoscopy completed [facility] 06/19/2022 12:12:27 Imaging Results [...] Updated DateTime 06/19/2022 165.1 cm 34.2 kg/m2 93482.31 g 116 mm[Hg] 77 mm[Hg] [facility] 12:12:05 Date Recorded Body height Systolic blood pressure Diastolic blood pressure Provider Name and Address Organization Details Last Updated DateTime 07/16/2022 165.1 cm 104 mm[Hg] 73 mm[Hg] [facility] 07/16/2022 16:02:33 Social History Question Answer Notes LastModified by Organizat ion Details LastModified Time Tobacco Smoking Status Former Smoker [facility] 06/19/2022 12:19:54 Do You Have An Advance Directive? No Information n ot available 06/19/2022 How Many Years Have You Consumed Alcohol? 30 Information not available 06/19/2022 Are You Blind Or Do You Have Difficulty Seeing? No Information n ot available 06/19/2022 What Is Your Level Of Caffeine Consumption? Moderate Information not available 06/19/2022 How Much Tobacco Do You Chew? None Information not available 06/19/2022 In The 14 Days Before Symptom Onset, Have You Had Close Contact With A Laboratory-confirm ed COVID-19 While That Case Was Ill? No Information n ot available 06/19/2022 In The 14 Days Before [...] You Following? REGULAR Information n ot available 06/19/2022 What Is The Highest Grade Or Level Of School You Have Completed Or The Highest Degree You Have Received? [id number] Information not available 06/19/2022 Are There Any [...] use any illicit or recreational drugs? Yes Information not available 06/19/2022 What is your level of alcohol consumption? Occasional Information not available 06/19/2022 Do you have difficulty walking or climbing stairs? No Information not available 06/19/2022 Are you able to walk? YESWOREST Information not available 06/19/2022 Are you able to care for yourself? Yes Information not available 06/19/2022 What is your occupation? Unemployed at this time Information not available 06/19/2022 Do you have [...] (Food, seasonal, environmental ) N Other N Drug/Latex Allergies/Reactions N Blood Transfusion N Breast Cancer N Dermatologic Disorders N Lung Disease N Defects or Inherited Disease N Breast Problem N Gestational Diabetes N Hematologic disorders N Anesthesia Complications N History of STI N Deep Vein Thrombosis N Polycystic ovary syndrome N Anxiety Disorder Y Autoimmune disease N Arthritis N Polyps N Infertility N Acid Reflux (GERD) Y History of abnormal pap N Cancer N Varicosities N Stroke N Neurologic/Epilepsy N Endometriosis N High Cholesterol Y Fibromyalgia N Headaches N Kidney Disease N Heart Problems N Thyroid Problems Y Kidney or Bladder Problems N GI Problems N Eating Disorder N Anemia [...] SNOMED-CT Code Diagnosis ICD10 Code Diagnosis Note [id number] MICAELA Leyva [place] [address] [address] 06/19/2022 11:53:07 06/19/2022 12:58:47 Gynecologic examination 91006099 Z01.419 Suggested Calcium with Vitamin D 1200-1500m g daily. Patient advised to get an annual flu shot in the fall and she could obtain at [facility] or [facility] care clinic. Also to obtain TDap vaccinatio [...] and review of plan of care. 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 06/19/2022 12:55:38 07/16/2022 text/html 47yopresents for f/u on menopausal symptoms MICAELA Leyva [address], [place], [address], [facility] 07/16/2022 18:10:44 OBGyn Episode Ob Episode Information Episode Created Date Number of Fetuses Patient Bloodtype Patient rh Status Prepregnancy Weight lbs Domestic Partner Domestic Partner Phone Father Name Emissions Technician Status 06/20/19 23 1 CLOSED Fetus Data First Name Last Name Admitted to NICU Weight (g) Sex Living Outcome Pediatric Complications Fetus ID Race Codes Race Delivery Type F Full Term [id number] Vaginal Delivery Kenneth Calculation Initial Kenneth Date [...]
--- NOTE | 2024-08-22 09:17 | WPDHPUPDATE1 ---
History and Physical Update Update Date/Time: 08/22/24 09:17 History and Physical has been reviewed, including an updated exam of the patient. There are NO changes in the patient's condition. Risks, benefits, and alternatives have been discussed and questions answered. Patient agrees to proceed with procedure.
[2024-08-22] MEDS: ACETAMINOPHEN 500 MG TABLET 1000 MG PO (11:00)
[2024-08-22] MEDS: KETOROLAC 15 MG/ML VIAL (*BKC) IV PUSH (11:00)
[2024-08-22 11:10] LABS: Glucose Point of Care 161 mg/dl (65-105)
[2024-08-22] MEDS: LACTATED RINGERS 1,000 ML 30 ML IV CONT (11:30)
--- NOTE | 2024-08-22 11:37 | WPDHPUPDATE1 ---
History and Physical Update Update Date/Time: 08/22/24 11:37 History and Physical has been reviewed, including an updated exam of the patient. There are NO changes in the patient's condition. Risks, benefits, and alternatives have been discussed and questions answered. Patient agrees to proceed with procedure.
--- NOTE | 2024-08-22 12:23 | WPDANESEPPF ---
Anes - Initial Pre Proc Eval Procedure: Operation Date: 08/22/24 12:30 Proposed Procedures p Debridement Left Extensor Carpi Radialis Brevus - Rolando Tavarez MD Date/Time: 08/22/24 12:23 Surgeon: Rolando Tavarez MD Pre Op Diagnosis: left elbow lateral epicondylitis Patient Data Age: 49 Gender: F Height: 1.65 m Weight: 89.36 kg Allergies Allergy/AdvReac Type Severity Reaction Status Date / Time No Known Allergies Allergy Verified 08/22/24 12:13 Home Medications ?Medication ?Instructions ?Recorded ?Confirmed ?Type melatonin 10 mg capsule 10 mg PO QHS 01/16/21 08/09/24 History famotidine 40 mg tablet See Rx Instructions .Route 04/08/21 08/09/24 Rx .COMPLEX #90 tabs folic acid 1 mg tablet 1 mg PO DAILY #90 tabs 11/21/21 08/09/24 Rx omeprazole 40 mg capsule,delayed 40 mg PO BID #180 caps 02/24/22 08/09/24 Rx release ezetimibe 10 mg tablet See Rx Instructions .Route 06/15/23 08/09/24 Rx .COMPLEX #90 tabs cariprazine 4.5 mg capsule 4.5 mg PO DAILY 08/11/23 08/09/24 History (Vraylar) hydroxyzine HCl 50 mg tablet 50 mg PO BID 08/11/23 08/09/24 History amlodipine 5 mg tablet 5 mg PO DAILY 07/28/24 08/09/24 History atorvastatin 20 mg tablet 10 mg PO .every other day 07/28/24 08/09/24 History cholecalciferol (vitamin D3) 10 10 mcg PO DAILY 07/28/24 08/09/24 History mcg (400 unit) capsule coenzyme Q10 10 mg capsule 10 mg PO ONCE 07/28/24 08/09/24 History estradiol 0.0375 mg/24 hr 1 patch transdermal WEEKLY 07/28/24 08/09/24 History semiweekly transdermal patch (Vivelle-Dot) evolocumab 140 mg/mL subcutaneous 140 mg subcut .every two weeks 07/28/24 08/09/24 History pen injector (Artie Singh) lamotrigine 25 mg tablet 25 mg PO DAILY 07/28/24 08/09/24 History levothyroxine 125 mcg capsule 112 mcg PO DAILY 07/28/24 08/09/24 History trazodone 100 mg tablet 100 mg PO QHS PRN sleep 07/28/24 08/09/24 History Laboratory Tests 08/22/24 11:05 POC Capillary Glucose 161 H mg/dl (65-105) Patient hx anesthesia problems: none Family hx anesthesia problems: none Results Review: All pre-operative results and documents have been reviewed as part of the pre-operative evaluation. [facility] Past Medical History Medical History Diabetes COVID-19 SHANE (obstructive sleep apnea) Nausea & vomiting Gastroesophageal reflux disease Benign essential hypertension Depression Hypothyroidism Mixed hyperlipidemia Surgical History Surgical History History of cholecystectomy History of tonsillectomy History of hysterectomy Family History Family History Father Hypertension Grandparent Family history of malignant neoplasm Mother Family history of diabetes mellitus in first degree relative Cancer Social History Social History (Updated 07/28/24 @ 12:49 by Shannan Penny CMA) Smoking packs per day: 1 Smoking cigarettes per day: 20.0 Years smoked: 30 Smoking pack-years: 30.00 Smoking status: Current every day smoker Tobacco type: cigarettes Second hand tobacco smoke exposure: Yes Alcohol intake: never Substance use: current Substance use type: marijuana Other substance usage details: medical marijuana Do You Feel Safe in your Home?: Yes Lack of Transportation: No Lack of Food: Never True Current Housing: I Have Housing Concerned About Future Housing: No Difficulty Paying Gas/Electric Bills: No Difficulty Paying for Meds: YES Currently Unemployed: No Education: Associate Degree Difficulty w/ Childcare or Family Care: No Living arrangements: with family Occupation/Education: unemployed Gender identity (if verbalized by the patient): Female Spiritual care concerns: No Anes - Eval Final PreProcedure Day of Procedure 08/22/24 12:23 Patient weight: obese Lungs: normal air movement Airway: Mallampati scale class II and special considerations (Edentulous. ) Neurological: alert and oriented Last oral intake: >/= 8 hours ASA classification: III Emergent: no Anesthetic plan: proceed Anesthesia type and monitoring: general LMA and standard monitoring Results Review: All pre-operative results and documents have been reviewed as part of the pre-operative evaluation. HTN, hyperlipidemia, SHANE but noncompliant w CPAP, DM, pt smokes daily 1ppd, none this am. GERD well controlled on PPI and H2 raymond. Informed Consent: The patient's anesthetic plan and its attendant risks and benefits were discussed with the patient/family/POA. Questions were solicited and answers provided to the satisfaction of the patient/family/POA.
[2024-08-22] MEDS: ceFAZolin 2 GM/D5W 50 ML 2 GM/50 ML BAG IVPB (12:35)
[2024-08-22] MEDS: LIDO 1%/EPINEPHRINE 1:100,000 20 ML VIAL INFILTRATE (13:04)
--- NOTE | 2024-08-22 13:10 | W.PM.PROC2 ---
Procedure Note - Detailed Date of Procedure 08/22/24 Pre-op Diagnosis Chronic Left elbow lateral epicondylitis Post-op Diagnosis Same Procedure Performed Debridement of extensor carpi radialis brevis and epicondyle Surgeon Rolando Tavarez MD Operations Intelligence Superintendent [place]erson Anesthesia General Indications Chronic Pain and lack of response to conservative treatment Description of Procedure Patient brought to operating room #8. a General anesthetic was administered. She was sterilely prepped and draped in usual manner. a Longitudinal incision made laterally over the elbow. Dissection carried down to the fascia. The extensor carpi radialis longus was lifted off of the brevis. The extensor carpi radialis brevis was then debrided. I then debrided the epicondylar bone as well. This removed the degenerative tissue. I then reattached the extensors to the epicondylar region with 2-0 Vicryl. The wound was then closed with 2-0 Vicryl and 3-0 Prolene. A sterile dressing was applied. Patient left the operating room in satisfactory condition. Estimated Blood Loss 10 Complications No immediate complications Condition Stable Disposition PACU [facility] Billing Surgery - Charge Forward: Surgery Billing (07200 Debride Lateral Epicondyle)
[2024-08-22 13:28] LABS: Glucose Point of Care 128 mg/dl (65-105)
[2024-08-22] MEDS: fentaNYL CITRATE INJ (*CRX) 100 MCG/2 ML VIAL 25 MCG IV PUSH ×4 (13:44→13:54)
[2024-08-22] MEDS: oxyCODONE HCL (*CRX) 5 MG TAB IR PO (14:28)
== END 2024-08-22 15:09 | disposition home or self-care (01) ==
PROVIDERS: PCP Internal Medicine; Visit Provider Orthopaedic Surgery
PROC: (CPT 24110; principal; 2024-08-22 12:30)
DX: M77.12 Lateral epicondylitis, left elbow (principal); E11.9 Type 2 diabetes mellitus without complications; F17.210 Nicotine dependence, cigarettes, uncomplicated; F12.90 Cannabis use, unspecified, uncomplicated; E66.9 Obesity, unspecified; Z68.33 Body mass index [BMI] 33.0-33.9, adult
CPT/HCPCS: 24359; 82948; A4565; A9270; J0690; J1885; J2003; J2004; J2250; J2405; J2704; J3010; J7120